=== PATIENT | male | born 1945 | race African-American/Black ===

== ENCOUNTER 2016-11-22 09:41 | Inpatient (IN) | payer OTHER ==
[2016-11-22] VITALS (18 sets, daily range): BP systolic 100–111; BP diastolic 55–79; PULSE 102–116; TEMP 36.2–37.4; O2SAT 90–100; Ht 167.6 cm; Wt 62.4 kg
[~2016-11-22] VITALS: Ht 167.6 cm; Wt 62.4 kg
[~2016-11-22 09:41] MED LIST: ACET-1311 PO; ALUM-30 PO; ARTISOL12 OP; RANI150T3 PO
[2016-11-22] MEDS ORDERED: SODIUM CHLORIDE 0.9% 1000ML 1,000 ML IV STA ×2 (10:03→11:45)
[2016-11-22] MEDS ORDERED: OMEP40CA41 PO (10:05)
[2016-11-22] MEDS ORDERED: [UNRECOGNIZED DRUG - CODE] PO (10:05)
[2016-11-22] MEDS ORDERED: ONDANSETRON INJ 2 MG/ML 2 ML VIAL IV STA ×2 (10:16→17:45)
[2016-11-22] MEDS ORDERED: MoRPHine SULFATE 4 MG/ML 1 ML CARP\\VIAL IV STA (10:16)
[2016-11-22] MEDS ORDERED: OPTIRAY 320 IV PRN (10:30)
--- NOTE | 2016-11-22 10:45 | EMERGENCY ROOM VISIT NOTE ---
History First contact with patient: 09:54 Chief Complaint: TACHYCARDIA Stated Complaint: TACHYCARDIAC Nursing Triage Summary: pt from [facility], on rounds this am he was found lying in urine and feces. was taken to [facility] where he was found to be tachycardic History of Present Illness The patient is a 71 year old male who presents to the Emergency Room with complaints of unresponsive episode. He was found on the floor by staff at [facility] covered in stool and urine. He was taken to the [facility] and was tachycardic, short of breath, c/o right flank pain. He is currently in 10 generalized abdominal pain, without radiation. He feels it started on his left side and is now generalized. He feels his chronic right inguinal hernia is exquisitely tender. He felt well yesterday but does not remember events this morning. He reports having black stool for the last 3 days. Currently feels nauseous but hasn't been vomiting. He is short of breath but denies any chest pain. Review of Systems See HPI for pertinent positives & negatives. A total of 10 systems reviewed and were otherwise negative. Past Medical/Surgical History Medical Problems: (1) Esophageal cancer (2) Helicobacter pylori (H. pylori) (3) Hepatitis C (4) Leukoplakia of vocal cords (5) Right groin hernia Social History Smoking Status: Never Smoker Alcohol Use: none Drug Use: none Marital Status: single Housing Status: other Occupation Status: other Current/Historical Medications Scheduled Nutritional Supplements (Resource Juice Drink), 240 ML PO DAILY Omeprazole (Prilosec), 40 MG PO DAILY Scheduled PRN Acetaminophen (Tylenol), 650 MG PO QID PRN for Pain Alum & Mag Hydrox-Simethicone (Mylanta), 1 DOSE PO UD PRN for STOMACH UPSET Artificial Tear Solution (Artificial Tears), 1 DROPS OP QID PRN for PRN Allergies Coded Allergies: No Known Allergies (Unverified , 11/22/16) Physical Exam Vital Signs Date Time Temp Pulse Resp B/P (MAP) Pulse Ox O2 Delivery O2 Flow Rate FiO2 11/22/16 15:08 109 18 100 11/22/16 15:01 124/69 11/22/16 14:53 110 20 100 11/22/16 14:46 117/70 11/22/16 14:38 111 18 100 11/22/16 14:31 131/73 6/17/17 14:23 110 18 100 17/17 14:16 138/69 11/22/17 14:08 112 20 100 17/17 14:01 128/62 11/22/17 13:53 116 19 100 17/17 13:46 115/66 11/22/17 13:42 Nasal Cannula 3.0 11/22/16 13:39 36.7 118 20 125/72 100 Nasal Cannula 3.0 17 13:38 119 19 100 17 13:37 125/72 17 13:31 139/61 11/22/17 13:23 120 22 100 17 13:08 118 20 100 17 13:01 130/69 17 12:53 125 19 95 11/22/17 12:47 126 28 123/69 95 Nasal Cannula 11/22/16 12:46 123/69 11/22/16 12:38 138 100 17 12:33 120 11/22/16 12:28 118 20 100 17 12:23 119 23 88 17 12:18 117 19 100 17 12:15 119 11/22/16 12:13 119 13 100 17 12:08 111/67 17 11:06 119 23 17 11:01 118 24 127/73 17 10:56 118 23 100 17 10:51 118 36 100 17 10:46 119 34 17 10:41 120 27 17 10:36 114 29 17/17 10:31 115 29 125/78 17 10:26 119 30 11/22/17 10:21 130 34 17 10:16 118 38 17 10:11 116 32 100 17 10:06 119 40 17 10:04 116/74 17 10:03 100 Room Air 11/22/16 10:01 125 40 11/22/16 09:57 100/63 17 09:56 127 43 17 09:55 127 11/22/16 09:54 Room Air 11/22/16 09:54 36.9 121 32 100/63 100 Room Air Physical Exam VITAL SIGNS: were reviewed as above GENERAL: no acute distress, cachetic appearance SKIN: Warm dry and pink, no rashes HEAD: Normocephalic and atraumatic EYES: extraocular muscles intact, pupils equal and reactive to light OROPHARYNX: non erythematous, clear and dry NECK: Supple, no adenopathy or meningismus LUNGS: Increased rate and breathing effort, clear to auscultation, no accessory muscle use HEART: Tachycardia, regular rhythm, heart sounds 1+2, no murmurs ABDOMEN: Generalized abdominal tenderness with guarding but no rebound tenderness, right inguinal mass very tender to touch, no skin changes over hernia, soft, bowel sounds normal RECTAL: done with verbal consent, no skin tags/hemorrhoids, soft stool, brown, fecal occult blood positive BACK: generalized tenderness over abdomen and CVA. EXTREMITIES: Cool peripheries, no calf tenderness/swelling, no pedal edema NEUROLOGICALLY: Awake, alert and oriented. Low volume hoarse voice. No facial droop. Moving all 4 limbs without focal deficit MUSCULOSKELETAL: Good muscle tone. No evidence of trauma Medical Decision & Procedures ER Provider Diagnostic Interpretation: CHEST ONE VIEW PORTABLE CLINICAL HISTORY: SOB dyspnea COMPARISON STUDY: 03/04/2015 FINDINGS: The bones soft tissues and hemidiaphragms are normal. The cardiomediastinal silhouette is normal. The lungs are clear. The pulmonary vasculature is normal. Several old right-sided rib fractures IMPRESSION: Negative chest. Electronically signed by: Lui Duncan M.D. 11/22/2016 10:[address] NON[address]AST CT DOSE: HISTORY: Mental status change AMS, Fall TECHNIQUE: Multiaxial CT images of the head were performed without the use of intravenous contrast. Comparison: None. Findings: The paranasal sinuses and mastoid air cells are clear. Slight increase in density is interim most likely secondary to partial calcification. Density characteristics otherwise are unremarkable. Ventricular system is midline. There is no midline shift. Impression: No acute process. Chronic change. Electronically signed by: Lui Duncan M.D. 11/22/2016 12:20 PM Dictated Date/Time: 11/22/2016 12:[address] angiogram abdomen and pelvis ANGIO ABD/PELVIS WITH CONTRAST CLINICAL HISTORY: Pain TECHNIQUE: Transaxial acquisition with multi axial reformatted images COMPARISON STUDY: None FINDINGS: Mild atherosclerotic change throughout the abdomen and pelvic arterial vasculature. No significant stenotic or aneurysmal process. Bowel pattern is consistent with that of a mild ileus. There is a considerable fecal impaction. IMPRESSION: 1. Negative CT angiogram abdomen and pelvis. 2. Rather marked rectal/sigmoid fecal impaction Electronically signed by: Lui Duncan M.D. 11/22/2016 12:27 PM Dictated Date/Time: 11/22/2016 12:24 PM Laboratory Results 11/22/16 10:55 Red Blood Count 2.13, Mean Corpuscular Volume 106.6, Mean Corpuscular Hemoglobin 34.3, Mean Corpuscular Hemoglobin Concent 32.2, Mean Platelet Volume 12.3, Neutrophils (%) (Auto) 84.1, Lymphocytes (%) (Auto) 5.8, Monocytes (%) ( Auto) 9.7, Eosinophils (%) (Auto) 0.0, Basophils (%) (Auto) 0.1, Neutrophils # ( Auto) 13.32, Lymphocytes # (Auto) 0.92, Monocytes # (Auto) 1.53, Eosinophils # ( Auto) 0.00, Basophils # (Auto) 0.01 Test 11/22/16 10:30 11/22/16 10:31 11/22/16 10:36 11/22/16 10:55 Total Bilirubin 0.4 mg/dl (0.2-1) Aspartate Amino Transf (AST/SGOT) 29 U/L (15-37) Alanine Aminotransferase (ALT/SGPT) 25 U/L (12-78) Alkaline Phosphatase 49 U/L (45-117) Ammonia 25.0 umol/L (11-32) Total Protein 6.3 gm/dl (6.4-8.2) Albumin 3.2 gm/dl (3.4-5.0) Globulin 3.1 gm/dl (2.5-4.0) Albumin/Globulin Ratio 1.0 (0.9-2) Bedside Chloride 100 mEq/L (101-112) Bedside Total CO2 31 mEq/l (24-31) Bedside Blood Urea Nitrogen 59 mg/dl (7-18) Bedside Creatinine 1.1 mg/dl (0.6-1.3) Bedside Glucose (other) 127 mg/dl (70-99) Bedside Ionized Calcium (René) 1.16 mmol/l (1.12-1.32) Bedside Lactic Acid Venous 4.00 mmol/L (0.90-1.70) Bedside Troponin I < 0.030 ng/ml (0-0.045) White Blood Count 15.82 K/uL (4.8-10.8) Red Blood Count 2.13 M/uL (4.7-6.1) Hemoglobin 7.3 g/dL (14.0-18.0) Hematocrit 22.7 % (42-52) Mean Corpuscular Volume 106.6 fL (80-100) Mean Corpuscular Hemoglobin 34.3 pg (25-34) Mean Corpuscular Hemoglobin Concent 32.2 g/dl (32-36) Platelet Count 177 K/uL (130-400) Mean Platelet Volume 12.3 fL (7.4-10.4) Neutrophils (%) (Auto) 84.1 % Lymphocytes (%) (Auto) 5.8 % Monocytes (%) (Auto) 9.7 % Eosinophils (%) (Auto) 0.0 % Basophils (%) (Auto) 0.1 % Neutrophils # (Auto) 13.32 K/uL (1.4-6.5) Lymphocytes # (Auto) 0.92 K/uL (1.2-3.4) Monocytes # (Auto) 1.53 K/uL (0.11-0.59) Eosinophils # (Auto) 0.00 K/uL (0-0.5) Basophils # (Auto) 0.01 K/uL (0-0.2) RDW Standard Deviation 56.9 fL (36.4-46.3) RDW Coefficient of Variation 14.8 % (11.5-14.5) Immature Granulocyte % (Auto) 0.3 % Immature Granulocyte # (Auto) 0.04 K/uL (0.00-0.02) Macrocytosis PRESENT Test 11/22/16 11:00 Arterial Blood pH 7.24 (7.35-7.45) Arterial Blood Partial Pressure CO2 86 mmHg (35-46) Arterial Blood Partial Pressure O2 212 mm/Hg (80-95) Arterial Blood HCO3 36 mmol/L (19-24) Arterial Blood Oxygen Saturation 98.4 % (90-95) Arterial Blood Base Excess 7.6 mEq/L (-9-1.8) Arterial Blood Gas Delivery 3 LITERS O2 Jordi Test POS (POS) Date/Time Source Procedure Growth Status 11/22/16 00:00 Nasal MRSA DNA Surveillance Screen - Final Specimen Negative for MRSA by DNA Probe Complete Medications Administered Medications (Trade) Dose Ordered Sig/Vera Route Start Time Stop Time Status Last Admin Dose Admin Sodium Chloride 1,000 ml @ 999 mls/hr Q1H1M STAT IV 11/22/16 10:03 11/22/16 11:03 DC 11/22/16 10:21 999 MLS/HR Morphine Sulfate (MoRPHine SULFATE INJ) 4 mg NOW STAT IV 11/22/16 10:16 11/22/16 10:18 DC 11/22/16 10:22 4 MG Ondansetron HCl (Zofran Inj) 4 mg NOW STAT IV 11/22/16 10:16 11/22/16 10:18 DC 11/22/16 10:21 4 MG Sodium Chloride 1,000 ml @ 999 mls/hr Q1H1M STAT IV 11/22/16 11:45 11/22/16 12:45 DC 11/22/16 12:15 999 MLS/HR ECG Indication: abdominal pain, SOB/dyspnea Rate (beats per minute): 125 Rhythm: sinus tachycardia Findings: no acute ischemic change, other (Increased R/S ratio, possibly right ventricular hypertrophy) Change: no significant change (Feb 2016) ED Course 9:55am Complete history and physical taken 10:10am Discussed with Dr Lopez 12:35pm Manual disimpaction attempted unsuccessfully given stool is very soft. Discussed with Dr Lopez and soap suds enema ordered. 13:00pm Dr Lopez discussed with Olegario Lang PA-C to assess patient for admission Medical Decision Prior records/ancillary studies reviewed. Triage Nursing notes reviewed. Additional history obtained from patient. The patient's history was concerning for abdominal pain and melena. Differential diagnosis: Etiologies such as appendicitis, diverticulitis, PUD, biliary pathology, UTI, pancreatitis, obstruction, mesenteric ischemia, aortic pathology, infections, inflammatory bowel disease, renal colic, as well as others were entertained. Physical examination findings: As above. Generalized abdominal tenderness ER treatment provided: Morphine 4mg IV, Zofran 4mg IV NSS bolus x2L On reassessment the patient felt better. Diagnostics interpreted by me: ECG: sinus tachycardia The labs revealed WBC 15.82, Hgb 7.3 (high MCV), Plt 177, Cr 1.1, BUN 63, Na 148 , K 3.9. Lactic acid 4.0 ABG - pH 7.24; pCO2 89; pO2 212; HCO3 36 Blood cultures were taken and the patient was type and crossed 2 units (1 unit ordered to transfuse) Imaging studies: CT A/P angiogram showed large amount of fecal impaction with mild ileus, negative for abdominal aortic dissection Consultation: A consultation was placed with the [facility] hospitalist (Olegario Lang PA-C). The case was discussed and diagnostics were reviewed by Dr Lopez. The patient was evaluated in the ER for further treatment. This is consistent with fecal impaction with an upper GI bleed. He was having his first unit transfused in the ER when I reassessed him. The cause of his lactic acidosis is less clear at this time. By the evaluation outlined above emergent etiologies such as appendicitis, biliary pathology, UTI, pancreatitis, aortic pathology, inflammatory bowel disease, renal colic, as well as others were deemed relatively unlikely. The patient was informed about the findings as listed above. All questions were answered. Impression Primary Impression: UGI bleed Additional Impressions: Anemia Fecal impaction Lactic acid acidosis Hypercapnia Leukocytosis Departure Information Dispostion Being Evaluated By Hospitalist Condition POOR Referrals Lupe GARCIA (PCP) Patient Instructions My [facility] Resident Tracking Resident Involvement: Resident Care Provided Care Provided: Adult ED Problem Qualifiers Additional Impressions: Anemia Anemia type: other cause Other causes of anemia: acute posthemorrhagic Qualified Codes: D62 - Acute posthemorrhagic anemia Leukocytosis Leukocytosis type: unspecified Qualified Codes: D72.829 - Elevated white blood cell count, unspecified
[2016-11-22 10:55] LABS: ISTAT CREATININE 1.1 mg/dl (0.6-1.3); ISTAT HEMOGLOBIN 8.5 g/dl (14.0-18.0); ISTAT IONIZED CALCIUM 1.16 mmol/l (1.12-1.32)
--- NOTE | 2016-11-22 10:59 | DIAGNOSTIC IMAGING REPORT ---
CHEST ONE VIEW PORTABLE CLINICAL HISTORY: SOB dyspnea COMPARISON STUDY: 03/04/2015 FINDINGS: The bones soft tissues and hemidiaphragms are normal. The cardiomediastinal silhouette is normal. The lungs are clear. The pulmonary vasculature is normal. Several old right-sided rib fractures IMPRESSION: Negative chest. Electronically signed by: Lui Duncan M.D. 11/22/2016 10:57 AM Dictated Date/Time: 11/22/2016 10:57 AM
[2016-11-22 11:04] LABS: INR 1.2 (0.9-1.1); PARTIAL THROMBOPLASTIN RATIO 0.8; PROTHROMBIN TIME (PATIENT) 12.9 SECONDS (9.0-12.0)
[2016-11-22 11:06] LABS: BASO % 0.1 %; BASO ABS # 0.01 K/uL (0-0.2); HEMATOCRIT 22.7 % (42-52); IG% 0.3 %; LYMPH % 5.8 %; LYMPH ABS # 0.92 K/uL (1.2-3.4); MEAN CELL VOLUME 106.6 fL (80-100); MEAN CORPUSCULAR HEMOGLOBIN 34.3 pg (25-34); MEAN CORPUSCULAR HGB CONC 32.2 g/dl (32-36); MEAN PLATELET VOLUME 12.3 fL (7.4-10.4); MONO % 9.7 %; NEUT % 84.1 %; PLATELET COUNT 177 K/uL (130-400); RED BLOOD COUNT 2.13 M/uL (4.7-6.1); WHITE BLOOD COUNT 15.82 K/uL (4.8-10.8)
[2016-11-22 11:10] LABS: BUN/CREATININE RATIO 57.2 (10-20); CALCIUM 8.3 mg/dl (8.5-10.1); CREATININE 1.1 mg/dl (0.60-1.40); POTASSIUM 3.9 mmol/L (3.5-5.1)
[2016-11-22 11:20] LABS: ARTERIAL BLD GAS O2 SATURATION 98.4 % (90-95); ARTERIAL BLOOD GAS BASE EXCESS 7.6 mEq/L (-9-1.8); ARTERIAL BLOOD GAS HCO3 36 mmol/L (19-24); ARTERIAL BLOOD GAS PO2 212 mm/Hg (80-95); ARTERIAL BLOOD GAS pH 7.24 (7.35-7.45)
[2016-11-22 11:22] LABS: ALLEN TEST POS (POS); O2 ADMINISTRATION 3 LITERS O2
[2016-11-22 11:32] LABS: COMPLETE YES
--- NOTE | 2016-11-22 12:21 | DIAGNOSTIC IMAGING REPORT ---
HEAD CT NONCONTRAST CT DOSE: HISTORY: Mental status change AMS, Fall TECHNIQUE: Multiaxial CT images of the head were performed without the use of intravenous contrast. Comparison: None. Findings: The paranasal sinuses and mastoid air cells are clear. Slight increase in density is interim most likely secondary to partial calcification. Density characteristics otherwise are unremarkable. Ventricular system is midline. There is no midline shift. Impression: No acute process. Chronic change. Electronically signed by: Lui Duncan M.D. 11/22/2016 12:20 PM Dictated Date/Time: 11/22/2016 12:18 PM
--- NOTE | 2016-11-22 12:28 | DIAGNOSTIC IMAGING REPORT ---
CT angiogram abdomen and pelvis ANGIO ABD/PELVIS WITH CONTRAST CLINICAL HISTORY: Pain TECHNIQUE: Transaxial acquisition with multi axial reformatted images COMPARISON STUDY: None FINDINGS: Mild atherosclerotic change throughout the abdomen and pelvic arterial vasculature. No significant stenotic or aneurysmal process. Bowel pattern is consistent with that of a mild ileus. There is a considerable fecal impaction. IMPRESSION: 1. Negative CT angiogram abdomen and pelvis. 2. Rather marked rectal/sigmoid fecal impaction Electronically signed by: Lui Duncan M.D. 11/22/2016 12:27 PM Dictated Date/Time: 11/22/2016 12:24 PM
[2016-11-22] MEDS ORDERED: SOAP SUDS ENEMA PR STA ×2 (12:55→21:01)
--- NOTE | 2016-11-22 13:43 | History and Physical ---
History & Physical Date & Time of Service: Nov 22, 2016 at 13:36 Chief Complaint: Tachycardiac Primary Care Physician: Lupe GARCIA History of Present Illness Source: patient Attending: Dr. Hills Saw patient in B2 in the ED. at 13:30 This is a 71 yo male from [facility] that carries a history of sq cell laryngeal cancer who presents with a probable GI Bleed and rectal impaction of soft stool. His belly is not distended and not painful. CT abd/pelvis shows mild ileus with no evidence of free air or obstruction. There is also no evidence of dissection. SBP is soft and in the low 100s. HGB is 7.3 with a HcT of 22.7. WBC is 15.82. He is afebrile. Patient presented with a chief complaint of abdominal pain. He is able to give me his name and states that he feels better but still has some belly pain. He denies fever pr chills. No nausea or vomiting. No diarrhea. He is unable to tell me when his last bowel movement was. Further history is not available from the [facility]. Patient is unable to provide further history. The guards are able to tell me that the patient was in solitary confinement so he was not in general population. It is unclear what his ambulatory status was prior to admission. Per past [facility] from the [facility], he has a history of constipation, old right sided rib fractures, chronic pain, anxiety, dysphagia, glaucoma, inquinal hernia, HCV, GERD, and cataracts, chronic hoarseness Medications at the [facility] include Tylenol PRN, Artificial tears, Mylanta/Maalox , Omeprazole, Resource supplement Past Medical/Surgical History Medical Problems: Helicobacter pylori (H. pylori) Hepatitis C Hx Sq Cell CA of vocal cords Right groin hernia Glaucoma GERD Anxiety Surgical History: Laryngeal biopsy 07/[address] Garcia 03/22 Family History Not available per patient Social History Smoking Status: Never Smoker Smokeless Tobacco Use: Unknown Drug Use: none Marital Status: single Housing status: other (Incarcerated at [facility]) Occupational Status: other Immunizations History of Influenza Vaccine: Yes Influenza Vaccine Date: Apr 16, 2016 History of Tetanus Vaccine?: Yes Tetanus Immunization Date: Aug 16, 2012 History of Pneumococcal: Yes Pneumococcal Date: October 26, 2014 History of Hepatitis B Vaccine: Yes Hepatitis Immunization Date: Nov 24, 2013 Multi-Drug Resistant Organisms History of MDRO: No Allergies Coded Allergies: No Known Allergies (Unverified , 11/22/16) Home Medications Scheduled Nutritional Supplements (Resource Juice Drink), 240 ML PO DAILY Omeprazole (Prilosec), 40 MG PO DAILY Scheduled PRN Acetaminophen (Tylenol), 650 MG PO QID PRN for Pain Alum & Mag Hydrox-Simethicone (Mylanta), 1 DOSE PO UD PRN for STOMACH UPSET Artificial Tear Solution (Artificial Tears), 1 DROPS OP QID PRN for PRN Review of Systems A total of 12 systems was reviewed and is negative other than as listed above in the HPI Physical Exam Vital Signs Date Time Temp Pulse Resp B/P (MAP) Pulse Ox O2 Delivery O2 Flow Rate FiO2 11/22/16 12:47 126 28 123/69 95 Nasal Cannula 11/22/16 12:33 120 11/22/16 12:28 118 20 100 11/22/16 12:23 119 23 88 11/22/16 12:18 117 19 100 11/22/16 12:15 119 11/22/16 12:13 119 13 100 11/22/16 12:08 111/67 11/22/16 11:06 119 23 11/22/16 11:01 118 24 127/73 11/22/16 10:56 118 23 100 11/22/16 10:51 118 36 100 11/22/16 10:46 119 34 11/22/16 10:41 120 27 11/22/16 10:36 114 29 11/22/16 10:31 115 29 125/78 11/22/16 10:26 119 30 11/22/16 10:21 130 34 11/22/16 10:16 118 38 11/22/16 10:11 116 32 100 11/22/16 10:06 119 40 11/22/16 10:04 116/74 11/22/16 10:03 100 Room Air 11/22/16 10:01 125 40 11/22/16 09:57 100/63 11/22/16 09:56 127 43 11/22/16 09:55 127 11/22/16 09:54 Room Air 11/22/16 09:54 36.9 121 32 100/63 100 Room Air General - NAD but disoriented Eyes - No icterus, gaze conjugate. PERRLA ENT - Mucosa moist, no lesions or candidiasis. Tongue midline Neck - Supple, No JVD. No bruits or stridor Lungs - No bronchospasm, rales, or rhonchi. Diminished at the bases Heart - Regular, tachycardic in the 1-teens Abdomen - Soft, NT, ND, BS present. No tenderness to palpation. No rebound tenderness. No high pitched bowel sounds Extremities - No edema, pedal pulses intact. No calf tenderness Neuro - A&OX2. Able to confirm history. No pronator drift. Toes downgoing bilaterally. DTR 2/4 B/L brachioradialis, bicep, and patellar tendons. Stated that he has been at [facility] for 2 years Diagnostics Laboratory Results Results Past 24 Hours Test 11/22/16 10:30 11/22/16 10:31 11/22/16 10:36 11/22/16 10:55 Range/Units Prothrombin Time 12.9 9.0-12.0 SECONDS Prothromb Time International Ratio 1.2 0.9-1.1 Activated Partial Thromboplast Time 21.5 21.0-31.0 SECONDS Partial Thromboplastin Ratio 0.8 Sodium Level 148 136-145 mmol/L Potassium Level 3.9 3.5-5.1 mmol/L Chloride Level 107 98-107 mmol/L Carbon Dioxide Level 33 21-32 mmol/L Anion Gap 8.0 19.0 16-25 mmol/L Blood Urea Nitrogen 63 7-18 mg/dl Creatinine 1.10 0.60-1.40 mg/dl Est Creatinine Clear Calc Drug Dose 47.2 ml/min Estimated GFR () 77.3 Estimated GFR (Non- 66.7 BUN/Creatinine Ratio 57.2 10-20 Random Glucose 125 70-99 mg/dl Calcium Level 8.3 8.5-10.1 mg/dl Total Bilirubin 0.4 0.2-1 mg/dl Aspartate Amino Transf (AST/SGOT) 29 15-37 U/L Alanine Aminotransferase (ALT/SGPT) 25 12-78 U/L Alkaline Phosphatase 49 45-117 U/L Ammonia 25.0 11-32 umol/L Troponin I 0.022 0-0.045 ng/ml Total Protein 6.3 6.4-8.2 gm/dl Albumin 3.2 3.4-5.0 gm/dl Globulin 3.1 2.5-4.0 gm/dl Albumin/Globulin Ratio 1.0 0.9-2 Lipase 185 73-393 U/L Bedside Hemoglobin 8.5 14.0-18.0 g/dl Bedside Hematocrit 25 42-52 % Bedside Sodium 146 135-144 mEq/L Bedside Potassium 3.9 3.3-5.0 mEq/L Bedside Chloride 100 101-112 mEq/L Bedside Total CO2 31 24-31 mEq/l Bedside Blood Urea Nitrogen 59 7-18 mg/dl Bedside Creatinine 1.1 0.6-1.3 mg/dl Bedside Glucose (other) 127 70-99 mg/dl Bedside Ionized Calcium (René) 1.16 1.12-1.32 mmol/l Bedside Lactic Acid Venous 4.00 0.90-1.70 mmol/L Bedside Troponin I < 0.030 0-0.045 ng/ml White Blood Count 15.82 4.8-10.8 K/uL Red Blood Count 2.13 4.7-6.1 M/uL Hemoglobin 7.3 14.0-18.0 g/dL Hematocrit 22.7 42-52 % Mean Corpuscular Volume 106.6 80-100 fL Mean Corpuscular Hemoglobin 34.3 25-34 pg Mean Corpuscular Hemoglobin Concent 32.2 32-36 g/dl Platelet Count 177 130-400 K/uL Mean Platelet Volume 12.3 7.4-10.4 fL Neutrophils (%) (Auto) 84.1 % Lymphocytes (%) (Auto) 5.8 % Monocytes (%) (Auto) 9.7 % Eosinophils (%) (Auto) 0.0 % Basophils (%) (Auto) 0.1 % Neutrophils # (Auto) 13.32 1.4-6.5 K/uL Lymphocytes # (Auto) 0.92 1.2-3.4 K/uL Monocytes # (Auto) 1.53 0.11-0.59 K/uL Eosinophils # (Auto) 0.00 0-0.5 K/uL Basophils # (Auto) 0.01 0-0.2 K/uL RDW Standard Deviation 56.9 36.4-46.3 fL RDW Coefficient of Variation 14.8 11.5-14.5 % Immature Granulocyte % (Auto) 0.3 % Immature Granulocyte # (Auto) 0.04 0.00-0.02 K/uL Macrocytosis PRESENT Test 11/22/16 11:00 Range/Units Arterial Blood pH 7.24 7.35-7.45 Arterial Blood Partial Pressure CO2 86 35-46 mmHg Arterial Blood Partial Pressure O2 212 80-95 mm/Hg Arterial Blood HCO3 36 19-24 mmol/L Arterial Blood Oxygen Saturation 98.4 90-95 % Arterial Blood Base Excess 7.6 -9-1.8 mEq/L Arterial Blood Gas Delivery 3 LITERS O2 Jordi Test POS POS Microbiology Results 11/22/16 Blood Culture, Received Pending 11/22/16 Blood Culture, Received Pending Diagnostic Radiology HEAD CT NONCONTRAST CT DOSE: HISTORY: Mental status change AMS, Fall TECHNIQUE: Multiaxial CT images of the head were performed without the use of intravenous contrast. Comparison: None. Findings: The paranasal sinuses and mastoid air cells are clear. Slight increase in density is interim most likely secondary to partial calcification. Density characteristics otherwise are unremarkable. Ventricular system is midline. There is no midline shift. Impression: No acute process. Chronic change. Electronically signed by: Lui Duncan M.D. 11/22/2016 12:[address] DOSE: HISTORY: Mental status change AMS, Fall TECHNIQUE: Multiaxial CT images of the head were performed without the use of intravenous contrast. Comparison: None. Findings: The paranasal sinuses and mastoid air cells are clear. Slight increase in density is interim most likely secondary to partial calcification. Density characteristics otherwise are unremarkable. Ventricular system is midline. There is no midline shift. Impression: No acute process. Chronic change. Electronically signed by: Lui Duncan M.D. 11/22/2016 12:20 PM CHEST ONE VIEW PORTABLE CLINICAL HISTORY: SOB dyspnea COMPARISON STUDY: 03/04/2015 FINDINGS: The bones soft tissues and hemidiaphragms are normal. The cardiomediastinal silhouette is normal. The lungs are clear. The pulmonary vasculature is normal. Several old right-sided rib fractures IMPRESSION: Negative chest. Electronically signed by: Lui Duncan M.D. 11/22/2016 10:57 AM Impression Assessment and Plan ACUTE RESPIRATORY FAILURE Acidosis Hypercapnia CXR negative Lactic acid 4 Blood, urine, MRSA cultures pending Repeat ABG and start BiPAP 05/13 (Repeat ABG 7.052/>130/398/No HC03) Oxygenation adequate on 3L/min via nasal cannula Admit to ICU as patient is minimally responsive ANEMIA Question of GI Bleed but no melana hematochezia or BRBPR CT Abd/pelvis negative Transfusing 1 unit of PRBC Additional unit on hold Serial H&H Check stool for guaiac SEPSIS Unknown source CXR clear Lactate 4 Anemic Developed acute respiratopry failure 2 l NSS in ED then IVF held for transfusion of PRBC Transfer to ICU Repeat CXR Start Daptomycin and Vancomycin Panculture Continue fluid support Hemodynamically stable CARDIAC No cardiac history Check echocardiogram No chest pain or tightness NEURO Alert and oriented X 2 on initial visit Deteriorated with climbing pCO2 now > 130 Started on BiPAP Transfer to ICU for consideration of endotracheal intubation CT Head negative GI BLEED Place NGT to LIWS Follow serial H&H Pantoprazole IV now that patient is unresponsive Hold on GI consult for now pending repeat labs ILEUS CT abd/pelvis with bowel filled colon and rectum Disimpaction with soft stool Place NGT to LIWS Monitor No pain on palpation Electrolytes K+ 3.9 Na+ 146 Ca+ 8.3 Ioinized Ca+ 1.16 Mag pending Follow serial labs CARDIAC Hemodynamically stable Negative enzymes Check EKG No chest pain NSR on telemetry NUTRITION Albumin 3.2 NPO Reassess tomorrow am IV ACCESS 2 PIV in hands 1 Left EJ PICC eval DVT PROPHYLAXIS No chemical prophylaxis SCDs ADDENDUM: I have seen and examined the patient and have discussed the case with the provider above. I agree wtih the assessment and plan. The patient became acutely worse when I saw him and repeat ABG went to CO2 130. He was exhibiting Aditya-Busch breathing and was placed on BIPAP in the ER wtih some improvement. Oxygenation status was good. Initial complaint was abdominal pain. Plan for NGT in light of ileus on CT scan. He also has sepsis of unknown source and anemia which is being corrected with blood transfusion. He has recently spent months in solitary confinement. Agree with ICU disposition. Do ISABELLE Level of Care Critical Care Advanced Directives Existing Advance Directive: No Existing Living Will: No Existing Power of Garment Sewer Hand: No Existing Health Care Proxy: No Resuscitation Status FULL RESUSCITATION (per patient discussion) VTE Prophylaxis VTE Risk Assessment Done? Y/N: Yes Risk Level: Moderate Given or contraindicated: SCD's Social Service Consult None Apply Note Total Time: Critical Care > 74 minutes
--- NOTE | 2016-11-22 14:53 | EMERGENCY ROOM VISIT NOTE ---
ED Visit Note First contact with patient: 09:54 Resident Physician Supervision Note: I interviewed and examined the patient. Discussed with Dr. Mtz and agree with findings and plan as documented in the note. Any exceptions or clarifications are listed here: [None] Laboratory work reveals an anemia, likely attributable to a GI bleed. Due to the patient's abdominal tenderness, CT scan abdomen and pelvis was ordered. Patient is found to have a large fecal impaction. Attempts were made to disimpact the stool however it is too soft. Laboratory work is also concerning for a lactate of 4. Patient's blood pressure has remained stable. He is tachycardic. One unit of PRBCs have been ordered to transfuse, second is pending. The hospitalist service has been consulted for further management. Please refer to Dr. Mtz's notes for further details of the history, physical and visit. Documented By: Estrella Lopez
[2016-11-22] MEDS ORDERED: ACETAMINOPHEN 325 MG TAB PO PRN (15:00)
[2016-11-22] MEDS ORDERED: VANCOMYCIN CONSULT ACTIVE PRN (16:45)
[2016-11-22] MEDS ORDERED: PIPERACILL/TAZOBAC CONSULT ACTIVE PRN (16:45)
[2016-11-22] MEDS: SODIUM CHLORIDE 0.9% 1000ML 1,000 ML IV SCH (16:59)
[2016-11-22] MEDS ORDERED: PIPERACILL/TAZOBAC IV 4.5 GM in DEXTROSE 5% 100ML IV ONE (17:00)
[2016-11-22] MEDS ORDERED: VANCOMYCIN INJ 1,350 MG in SODIUM CHLORIDE 0.9% 250ML 250 ML IV ONE (17:00)
[2016-11-22] MEDS ORDERED: ONDANSETRON INJ 2 MG/ML 2 ML VIAL ONE (17:38)
[2016-11-22 17:40] LABS: URINE APPEARANCE CLEAR (CLEAR); URINE BILIRUBIN NEG (NEG); URINE COLOR YELLOW; URINE NITRITE NEG (NEG); URINE SPECIFIC GRAVITY > 1.045 (1.000-1.030); UROBILINOGEN NEG (NEG)
[2016-11-22] MEDS ORDERED: ALBUT/IPRATROP 3MG/0.5MG NEB 3 ML VIAL INH STA (17:42)
[2016-11-22 17:43] LABS: MANUAL MICROSCOPIC REQUIRED? NO; REVIEW REQ? NO
[2016-11-22 17:49] LABS: PARTIAL THROMBOPLASTIN RATIO 1.1; PROTHROMBIN TIME (PATIENT) 11.1 SECONDS (9.0-12.0)
--- NOTE | 2016-11-22 17:53 | DIAGNOSTIC IMAGING REPORT ---
CHEST ONE VIEW PORTABLE CLINICAL HISTORY: Acute Respiratory Failure dyspnea COMPARISON STUDY: 11/22/2016 FINDINGS: Lungs remain clear. Diaphragms smooth. There is a component of emphysematous change. IMPRESSION: Lungs remain clear. Baseline emphysematous change. Several old right rib fractures are again noted. Electronically signed by: Lui Duncan M.D. 11/22/2016 5:52 PM Dictated Date/Time: 11/22/2016 5:51 PM
[2016-11-22 17:58] LABS: BENZODIAZEPINE, URINE NEG (NEG); COCAINE,URINE NEG (NEG); PHENCYCLIDINE, URINE NEG (NEG)
[2016-11-22] MEDS ORDERED: ENOXAPARIN 40 MG/0.4 ML SYR SQ SCH (18:00)
[2016-11-22] MEDS ORDERED: PIPERACILL/TAZOBAC IV 4.5 GM in DEXTROSE 5% 100ML 100 ML IV SCH (18:00)
[2016-11-22 18:03] LABS: AMYLASE 62 U/L (25-115); C-REACTIVE PROTEIN 1.06 mg/dl (0-0.29); PHOSPHORUS 5.3 mg/dl (2.5-4.9)
[2016-11-22 18:34] LABS: ISTAT ARTERIAL BLOOD GAS HCO3 31 meq/L (19-24); ISTAT ARTERIAL BLOOD GAS PCO2 67 mmHg (35-46); ISTAT ARTERIAL BLOOD GAS PO2 126 mmHg (80-95); ISTAT ARTERIAL BLOOD GAS pH 7.27 (7.35-7.45); ISTAT CARBON DIOXIDE 33 mEq/l (24-31); ISTAT HEMATOCRIT 26 % (42-52); ISTAT HEMOGLOBIN 8.8 g/dl (14.0-18.0); ISTAT SODIUM 147 mEq/L (135-144)
[2016-11-22] MEDS: ALBUT/IPRATROP 3MG/0.5MG NEB 3 ML VIAL INH SCH ×2 (19:13→23:04)
[2016-11-22 20:23] LABS: BUN/CREATININE RATIO 59.8 (10-20); CALCIUM 7.8 mg/dl (8.5-10.1); CREATININE 0.95 mg/dl (0.60-1.40)
--- NOTE | 2016-11-22 20:44 | CRITICAL CARE CONSULTATION ---
DATE OF CONSULTATION: 11/22/2016 CHIEF COMPLAINT: Abdominal pain. HISTORY OF PRESENT ILLNESS: The patient is a 71-year-old prisoner at [facility], who presented to the Emergency Department with a complaint of abdominal pain. According to the documentation from the correction, which occurred at 08:45 the patient was hypotensive and tachycardic with a heart rate of 124 and a respiratory rate of 30. He was complaining of right flank pain and was unable to speak. By report, he was also in solitary confinement and he was incontinent of stool and urine. He was evaluated in the Emergency Department and by report had 10/10 abdominal pain which started on the right side and then became generalized. He had no memory of events of the morning. He also reported black stool for 3 days and was nauseated. He had a chest x-ray which showed no acute disease, a head CT showing no acute process and a CT angiogram showing marked rectal/sigmoid fecal impaction. Dr. Mtz attempted to manually disimpact him and found some soft stool. I do not see that it was sent for evaluation of guaiac. A soapsuds enema was ordered, but I do not know if he received it. In the Emergency Department, he had an arterial blood gas drawn which showed a pH of 7.24, pCO2 86, pO2 212 and bicarbonate of 36. Later in the Emergency Department, he became less responsive and another blood gas was drawn. Unfortunately, it is not in the computer, but it had a pH of 7.052 and a pCO2 of greater than 130. He had received 4 mg of morphine as well as 2 liters of normal saline in the Emergency Department. He was placed on BiPAP 15/5 24% and brought to the intensive care unit. When he arrived in the intensive care unit, he was lethargic. He would withdraw to pain, but I could not get any history whatsoever from him. He would reach for the bipap mask and occasionally nod his head. He would move spontaneously some. An NG tube placement was ordered and with that stimulation he was very awake, following commands and refusing the NG tube adamantly. When I asked him if he has a history of tobacco use, he says yes. When I ask him about COPD he says yes; mostly he does not speak though. His mental status continued to improve and follow up also showed improvement. 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 Right inguinal hernia, dysphonia, dysphagia, H. pylori, hepatitis C, rib fractures, glaucoma, cataracts, anxiety, esophageal stricture, dilated by Dr. Garcia in April 2016, leukoplakia of the vocal cords and constipation. PAST SURGICAL HISTORY: Status post uvuloplasty and esophageal dilatation, laryngeal biopsies x2 and cataract extractions. ALLERGIES: No known drug allergies. OUTPATIENT MEDICATIONS: Nutritional supplements and Prilosec. SOCIAL HISTORY: Unclear whether or not he has smoked. He should not be drinking any alcohol. He is incarcerated and has been in solitary confinement FAMILY HISTORY: Noncontributory. REVIEW OF SYSTEMS: Not obtainable. PHYSICAL EXAMINATION: GENERAL: This is an extremely cachectic gentleman, lying in bed with his eyes open, in the position, on BiPAP. VITAL SIGNS: Temperature is 36.2, heart rate 104, respiratory rate 16, blood pressure 111/79 and oxygen saturation 94% on BiPAP 15/5 24%. HEENT: Pupils are equally round and reactive to light. Sclerae is slightly muddy. Oral mucosa was not examined due to the BiPAP. NECK: Thin and I think neck veins are flat. LUNGS: Have very decreased breath sounds throughout. No rales, rhonchi or wheezes. HEART: Tachycardic and regular. CHEST: Symmetric expansion. ABDOMEN: Flat, firm and mildly tender. No rebound, no guarding. Hypoactive bowel sounds. EXTREMITIES: Thin, cool. Radial and dorsalis pedis pulses 1+. No edema. NEUROLOGIC: He will withdraw to pain the bilateral lower extremities. He will reach for the BiPAP mask with both upper extremities. He does not follow commands consistently. He will occasionally nod his head to questions. LABORATORY DATA: Followup blood gas at 18:16; pH 7.27, pCO2 of 67, pO2 126, HCO3 31, white blood cell count 15.82, hemoglobin 7.3, hematocrit 22.7 and platelets 177. He has a left shift. Followup hemoglobin 8.8. PT, PTT and INR within normal limits. Sodium 148, potassium 3.9, chloride 107, CO2 33, BUN 63 and creatinine 1.1. Blood sugar 125, calcium 8.3. Liver function tests within normal limits. Troponin 0.022. Total protein 6.3, albumin 3.2, lipase 185. Procalcitonin 0.23. Amylase 62. C-reactive protein 1.06. ProBNP 820. Lactic acid 4, followup lactic acid by [id number] is not in the computer and was less than 1. Followup chest x-ray this afternoon shows no acute infiltrates. I do think he is somewhat hyperinflated and his diaphragms are smooth. He may have emphysematous changes. PRESENT MEDICATIONS ORDERED: Acetaminophen, DuoNeb, Solu-Medrol, Zofran, Protonix, Zosyn, normal saline and vancomycin. EKG; sinus tachycardia with nonspecific ST-T wave changes. IMPRESSION: 1. Abdominal pain with distended colon and fecal impaction. He may have the pain from an ileus as well. 2. Acute hypercapnic respiratory failure. There may be an element of chronic respiratory failure as well based on his serum CO2. This may be related to the Morphine 4mg he received or he may have COPD. 3. Anemia, possible gastrointestinal bleed. Brown stool per staff. Elevated MCV. 4. Metabolic encephalopath - improving. 5. Leukocytosis with left shift, rule out sepsis. 6. History of esophageal stricture, dysphagia and dysphonia. 7. History of hepatitis C. 8. 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 9. Possible history of chronic obstructive pulmonary disease. 10. Acute kidney injury - likely dehydrated. PLAN: NEUROLOGIC: Avoid sedative medications. Frequent neuro checks. Presently, he has a nonfocal exam and seems to be improving. PULMONARY: Support on BiPAP. I have started bronchodilators and Solu-Medrol 40 mg IV q. 8 hours with the suspicion that he may have chronic obstructive pulmonary disease. It is difficult to know whether or not his respiratory failure was secondary to possible sepsis or some other etiology. CARDIOVASCULAR: Rule out myocardial infarction with serial cardiac enzymes. Hydrate. Consider echocardiogram if he becomes hypotensive. GASTROINTESTINAL: Maintain n.p.o. with the exception of medications if he is awake enough. As noted before, an NG tube unable to be placed. I will order a suppository and/or enema as well as stool for guaiac. Protonix IV BID for GI prophylaxis and for possible GI bleed. HEMATOLOGIC: Check blood counts q. 6 hours and transfuse as needed. SCDs for DVT prophylaxis. B12 and folate levels. SCD's for DVT prophylaxis. RENAL: Continue to hydrate. Follow electrolytes. Consider changing his normal saline to half normal saline based on his elevated sodium. INFECTIOUS DISEASE: Broad spectrum antibiotics for now. Follow procalcitonin, cultures and white blood cell count. Hopefully, we can get some more information over the course of the evening. I have ordered a random cortisol. His IV access is 3 peripheral IVs; I may need to place a central line in him for blood draws. He may be easier to stick once he is hydrated. Critical care time; 1 hour. LEVI
--- NOTE | 2016-11-22 21:18 | Pharmacy Progress Note ---
Pharmacy Antibiotic Consult Date of Service: Nov 22, 2016. Pharmacy Dosing Scope Pharmacy is consulted to initiate vancomycin and zosyn IV dosing therapy, order appropriate labs and adjust drug dose/frequency. Subjective The patient is a 71 year old male admitted on Nov 22, 2016 at 15:11. Objective Height (Feet): 5 Height (Inches): 6.00 Weight (Kilograms): 51.700 Lab Results (24hrs): Test 11/22/16 10:30 11/22/16 10:31 11/22/16 10:36 11/22/16 10:55 Prothrombin Time 12.9 SECONDS (9.0-12.0) Prothromb Time International Ratio 1.2 (0.9-1.1) Activated Partial Thromboplast Time 21.5 SECONDS (21.0-31.0) Partial Thromboplastin Ratio 0.8 Sodium Level 148 mmol/L (136-145) Potassium Level 3.9 mmol/L (3.5-5.1) Chloride Level 107 mmol/L (98-107) Carbon Dioxide Level 33 mmol/L (21-32) Blood Urea Nitrogen 63 mg/dl (7-18) Creatinine 1.10 mg/dl (0.60-1.40) Est Creatinine Clear Calc Drug Dose 47.2 ml/min Estimated GFR () 77.3 Estimated GFR (Non- 66.7 BUN/Creatinine Ratio 57.2 (10-20) Random Glucose 125 mg/dl (70-99) Calcium Level 8.3 mg/dl (8.5-10.1) Total Bilirubin 0.4 mg/dl (0.2-1) Aspartate Amino Transf (AST/SGOT) 29 U/L (15-37) Alanine Aminotransferase (ALT/SGPT) 25 U/L (12-78) Alkaline Phosphatase 49 U/L (45-117) Ammonia 25.0 umol/L (11-32) Troponin I 0.022 ng/ml (0-0.045) Total Protein 6.3 gm/dl (6.4-8.2) Albumin 3.2 gm/dl (3.4-5.0) Globulin 3.1 gm/dl (2.5-4.0) Albumin/Globulin Ratio 1.0 (0.9-2) Lipase 185 U/L (73-393) Bedside Hemoglobin 8.5 g/dl (14.0-18.0) Bedside Hematocrit 25 % (42-52) Bedside Sodium 146 mEq/L (135-144) Bedside Potassium 3.9 mEq/L (3.3-5.0) Bedside Chloride 100 mEq/L (101-112) Bedside Total CO2 31 mEq/l (24-31) Anion Gap 19.0 mmol/L (16-25) Bedside Blood Urea Nitrogen 59 mg/dl (7-18) Bedside Creatinine 1.1 mg/dl (0.6-1.3) Bedside Glucose (other) 127 mg/dl (70-99) Bedside Ionized Calcium (René) 1.16 mmol/l (1.12-1.32) Bedside Lactic Acid Venous 4.00 mmol/L (0.90-1.70) Bedside Troponin I < 0.030 ng/ml (0-0.045) White Blood Count 15.82 K/uL (4.8-10.8) Red Blood Count 2.13 M/uL (4.7-6.1) Hemoglobin 7.3 g/dL (14.0-18.0) Hematocrit 22.7 % (42-52) Mean Corpuscular Volume 106.6 fL (80-100) Mean Corpuscular Hemoglobin 34.3 pg (25-34) Mean Corpuscular Hemoglobin Concent 32.2 g/dl (32-36) Platelet Count 177 K/uL (130-400) Mean Platelet Volume 12.3 fL (7.4-10.4) Neutrophils (%) (Auto) 84.1 % Lymphocytes (%) (Auto) 5.8 % Monocytes (%) (Auto) 9.7 % Eosinophils (%) (Auto) 0.0 % Basophils (%) (Auto) 0.1 % Neutrophils # (Auto) 13.32 K/uL (1.4-6.5) Lymphocytes # (Auto) 0.92 K/uL (1.2-3.4) Monocytes # (Auto) 1.53 K/uL (0.11-0.59) Eosinophils # (Auto) 0.00 K/uL (0-0.5) Basophils # (Auto) 0.01 K/uL (0-0.2) RDW Standard Deviation 56.9 fL (36.4-46.3) RDW Coefficient of Variation 14.8 % (11.5-14.5) Immature Granulocyte % (Auto) 0.3 % Immature Granulocyte # (Auto) 0.04 K/uL (0.00-0.02) Macrocytosis PRESENT Test 11/22/16 11:00 11/22/16 16:24 11/22/16 16:55 11/22/16 17:24 Arterial Blood pH 7.24 (7.35-7.45) Arterial Blood Partial Pressure CO2 86 mmHg (35-46) Arterial Blood Partial Pressure O2 212 mm/Hg (80-95) Arterial Blood HCO3 36 mmol/L (19-24) Arterial Blood Oxygen Saturation 98.4 % (90-95) Arterial Blood Base Excess 7.6 mEq/L (-9-1.8) Arterial Blood Gas Delivery 3 LITERS O2 Jordi Test POS (POS) Creatine Kinase MB Ratio (0-3.0) Urine Color YELLOW Urine Appearance CLEAR (CLEAR) Urine pH 5.0 (4.5-7.5) Urine Specific [place] > 1.045 (1.000-1.030) Urine Protein NEG (NEG) Urine Glucose (UA) NEG (NEG) Urine Ketones NEG (NEG) Urine Occult Blood TRACE (NEG) Urine Nitrite NEG (NEG) Urine Bilirubin NEG (NEG) Urine Urobilinogen NEG (NEG) Urine Leukocyte Esterase NEG (NEG) Urine WBC (Auto) 1-5 /hpf (0-5) Urine RBC (Auto) 0-4 /hpf (0-4) Urine Hyaline Casts (Auto) 1-5 /lpf (0-5) Urine Epithelial Cells (Auto) 10-20 /lpf (0-5) Urine Bacteria (Auto) NEG (NEG) Urine Opiates Screen POS (NEG) Urine Methadone, Qualitative NEG (NEG) Urine Barbiturates NEG (NEG) Urine Phencyclidine (PCP) Level NEG (NEG) Ur Amphetamine/Methamphetamine NEG (NEG) MDMA (Ecstasy) Screen NEG (NEG) Urine Benzodiazepines Screen NEG (NEG) Urine Cocaine Metabolite NEG (NEG) Urine Marijuana (THC) NEG (NEG) Hemoglobin 8.6 g/dL (14.0-18.0) Hematocrit 27.0 % (42-52) Erythrocyte Sedimentation Rate 2 mm/hr (0-14) Prothrombin Time 11.1 SECONDS (9.0-12.0) Prothromb Time International Ratio 1.0 (0.9-1.1) Activated Partial Thromboplast Time 27.3 SECONDS (21.0-31.0) Partial Thromboplastin Ratio 1.1 Sodium Level 149 mmol/L (136-145) Potassium Level 5.0 mmol/L (3.5-5.1) Chloride Level 112 mmol/L (98-107) Carbon Dioxide Level 32 mmol/L (21-32) Anion Gap 5.0 mmol/L (3-11) Blood Urea Nitrogen 57 mg/dl (7-18) Creatinine 0.95 mg/dl (0.60-1.40) Est Creatinine Clear Calc Drug Dose 51.4 ml/min Estimated GFR () 92.3 Estimated GFR (Non- 79.7 BUN/Creatinine Ratio 59.8 (10-20) Random Glucose 104 mg/dl (70-99) Calcium Level 7.8 mg/dl (8.5-10.1) Phosphorus Level 5.3 mg/dl (2.5-4.9) Total Creatine Kinase 432 U/L (39-308) Creatine Kinase MB 6.8 ng/ml (0.5-3.6) Troponin I 0.033 ng/ml (0-0.045) C-Reactive Protein 1.06 mg/dl (0-0.29) Pro-B-Type Natriuretic Peptide 820 pg/ml (0-900) Amylase Level 62 U/L (25-115) Lipase 147 U/L (73-393) Procalcitonin 0.23 ng/ml (0-0.5) Random Cortisol 58.01 mcg/dl Test 11/22/16 18:16 Bedside Hemoglobin 8.8 g/dl (14.0-18.0) Bedside Hematocrit 26 % (42-52) Bedside Blood Gas pH (LAB) 7.27 (7.35-7.45) Bedside Blood Gas pCO2 (LAB) 67 mmHg (35-46) Bedside Blood Gas pO2 (LAB) 126 mmHg (80-95) Bedside Blood Gas HCO3 (LAB) 31 meq/L (19-24) Bedside Blood Gas Total CO2 33 mEq/l (24-31) Bedside Blood Gas Base Excess (LAB) 4.0 meq/L (-9-1.8) Bedside Blood Gas O2 Saturation 98.0 % (90-95) Bedside Sodium 147 mEq/L (135-144) Bedside Potassium 4.3 mEq/L (3.3-5.0) Assessment & Plan Patient started on vancomycin and zosyn for possible sepsis. BC x 2 are pending. Vancomycin: * Received LD of vancomycin 1350 mg (~25 mg/kg) x 1 * Will order MD of vancomycin 750 mg (~15 m/kg) iv q 18 hr to achieve an estimated trough ~15-20 mcg/ml (goal for sepsis/bacteremia) * Estimated kinetics: t1/2~16 hrs, ke~0.04 hr-1 * Unsure of baseline renal function at this time, will order a trough as necessary/adjust dose as necessary Zosyn: * Dosed 4.5 gm iv q 8 hrs (appropriate for CrCl >20 ml/min; actual CrCl ~47 ml/ min) Pharmacy will continue to follow and will adjust dose/frequency as necessary. Thank you
[2016-11-22] MEDS: METHYLPREDNISOLONE IV 40 MG in SYRINGE 0 ML IV SCH (21:36)
[2016-11-22 22:12] LABS: HEMATOCRIT 25.3 % (42-52)
--- NOTE | 2016-11-22 23:52 | Progress Note ---
Progress Note Post Crystalloid Evaluation Date: Nov 22, 2016 Time: 16:30 Subjective 71 yo M inmate who was in solitary confinement for months who presents with sepsis of unknown source. He is unresponsive with tachypnea and a leukocytosis. Physical Exam Vital Signs: Vital Signs Date Time Temp Pulse Resp B/P (MAP) Pulse Ox O2 Delivery O2 Flow Rate FiO2 11/22/16 16:26 115 18 111/62 95 BiPAP 24 11/22/16 13:42 3.0 11/22/16 13:39 36.7 Lungs: lungs clear, + accessory muscle use, + pertinent finding (Aditya Busch breathing) Heart: regular rate, rhythm Peripheral Pulse: Normal Assessment & Plan Presence of: Severe Sepsis SEPSIS Unknown source CXR clear Lactate 4 Anemic Developed acute respiratopry failure 2 l NSS in ED then IVF held for transfusion of PRBC Transfer to ICU Repeat CXR Start Daptomycin and Vancomycin Panculture Continue fluid support Hemodynamically stable Trend labs including lactate
[2016-11-23] VITALS (65 sets, daily range): BP systolic 71–135; BP diastolic 42–71; PULSE 96–183; TEMP 36.4–37.6; O2SAT 85–100
[2016-11-23] MEDS: PIPERACILL/TAZOBAC IV 4.5 GM in DEXTROSE 5% 100ML IV SCH ×4 (00:07→23:23)
[2016-11-23] MEDS: ONDANSETRON INJ 2 MG/ML 2 ML VIAL IV PRN ×2 (00:39→21:44)
[2016-11-23] MEDS: SODIUM CHLORIDE 0.9% 1000ML 1,000 ML IV SCH (00:41)
[2016-11-23] MEDS: ALBUT/IPRATROP 3MG/0.5MG NEB 3 ML VIAL INH SCH ×6 (03:14→23:31)
[2016-11-23 04:05] LABS: HEMATOCRIT 23.3 % (42-52); IG% 0.3 %; LYMPH % 7.1 %; LYMPH ABS # 0.82 K/uL (1.2-3.4); MEAN CELL VOLUME 102.2 fL (80-100); MEAN CORPUSCULAR HGB CONC 31.3 g/dl (32-36); MEAN PLATELET VOLUME 12.2 fL (7.4-10.4); MONO % 1.8 %; NEUT % 90.8 %; PLATELET COUNT 150 K/uL (130-400); RED BLOOD COUNT 2.28 M/uL (4.7-6.1); WHITE BLOOD COUNT 11.63 K/uL (4.8-10.8)
[2016-11-23 04:22] LABS: BUN/CREATININE RATIO 50.3 (10-20); CALCIUM 7.5 mg/dl (8.5-10.1); CREATININE 0.8 mg/dl (0.60-1.40); MAGNESIUM 2.5 mg/dl (1.8-2.4); POTASSIUM 4.4 mmol/L (3.5-5.1)
[2016-11-23 04:40] LABS: ANISOCYTOSIS PRESENT; COMPLETE YES; POLYCHROMASIA 1+
[2016-11-23] MEDS: SODIUM CHLORIDE 0.45% 1000ML 1,000 ML IV SCH ×2 (05:09→19:34)
[2016-11-23] MEDS: METHYLPREDNISOLONE IV 40 MG in SYRINGE 0 ML IV SCH (05:34)
[2016-11-23] MEDS: ACETAMINOPHEN IV 650 MG in EMPTY BAG 0 ML IV PRN ×3 (08:23→23:27)
--- NOTE | 2016-11-23 08:35 | DIAGNOSTIC IMAGING REPORT ---
CHEST AND ABDOMEN 2 VIEWS HISTORY: Abdominal distention. COMPARISON: Abdomen and pelvis CTA 11/22/2016. FINDINGS: No pneumothorax. Old, healed right-sided rib fractures. No focal lung consolidations to suggest pneumonia. No evidence for pulmonary edema. The heart is normal in size. No pneumoperitoneum. No pneumatosis. Large amount well-formed stool seen throughout the colon rectum resulting and mild distention of the large bowel. No dilated loops of small bowel to suggest a small bowel obstruction. No renal calculi. IMPRESSION: 1. No acute process within the chest. 2. Large amount well-formed stool seen throughout the colon and rectum resulting in mild distention of the large bowel. Electronically signed by: Eugenio Otto M.D. 11/23/2016 8:34 AM Dictated Date/Time: 11/23/2016 8:32 AM
[2016-11-23] MEDS ORDERED: PANTOprazole INJ 40 MG in SYRINGE 0 ML IV SCH (09:00)
[2016-11-23] MEDS ORDERED: PANTOprazole SOD 40 MG TAB PO SCH (09:00)
[2016-11-23 10:32] LABS: HEMATOCRIT 19.9 % (42-52)
[2016-11-23] MEDS ORDERED: SOAP SUDS ENEMA PR ONE (11:30)
[2016-11-23] MEDS ORDERED: VANCOMYCIN INJ 750 MG in SODIUM CHLORIDE 0.9% 250ML 250 ML IV SCH (12:00)
--- NOTE | 2016-11-23 12:23 | CRITICAL CARE PROGRESS NOTE ---
DATE: 11/23/2016 SUBJECTIVE: The patient wore his BiPAP overnight last night 14/7 24%. This morning, when both his nurse and I took his BIPAP off on two separate occasions, he started to become tachypneic and demand water. He would not really answer questions or did so by telling me that he needs water. When he was distracted, he did not appear tachypneic. He complains of abdominal pain and thirst. He had a soapsuds enema last night which produced brown stool, guaiac positive. No further bowel movements. No vomiting. PHYSICAL EXAMINATION: VITAL SIGNS: Temperature 37.6, heart rate 96-104, respiratory rate 18-30, blood pressure 100-118/50s-60s, oxygen saturation 97-100% on 3 liters nasal cannula, 24-hour fluid balance positive 1.8 liters. GENERAL: He is awake. NEUROLOGIC: When encouraged he will follow commands. When I ask him where he is, he states "I don't know." When I ask him the year he says very clearly "I don't know." He knows his name. He can carry on a conversation if he wants to. LUNGS: Clear with decreased breath sounds throughout. No rales, rhonchi or wheezes. HEART: Mildly tachycardic, regular. No murmurs. ABDOMEN: Flat, a bit firm, diffusely tender. No rebound or guarding. EXTREMITIES: A bit cool. No edema. LABORATORIES: White blood cell count 11.63, hemoglobin 7.3 followup 6.2, hematocrit 23.3 and platelets 150. Sodium 150, potassium 4.4, chloride 114, CO2 31, BUN 40, creatinine 0.8, blood sugar 109, calcium 7.5, magnesium 2.5, alkaline phosphatase 43 and albumin 2.6. Procalcitonin 0.18 and random cortisol 58. Urine and blood cultures are pending. Abdominal and chest x-rays were reviewed today. The chest is clear and there is still a large amount of well-formed stool throughout the colon resulting in mild distention of the large bowel. MEDICATIONS: Acetaminophen, DuoNeb, Solu-Medrol, Zofran, Protonix, Zosyn, vancomycin and half normal saline 60 mL per hour. EKG shows sinus tachycardia with nonspecific ST-T wave changes. IMPRESSION: 1. Abdominal pain secondary to constipation and ileus. 2. Heme positive stool. 3. Anemia, possibly secondary to acute blood loss. NG tube was attempted yesterday without success. CT angio abdomen done yesterday. 4. Metabolic encephalopathy, improved. 5. Hypercapnic respiratory failure which may have been secondary to the morphine that he received, improved. 6. Possible chronic obstructive pulmonary disease, today I think it is less likely that he is having any kind of exacerbation. 7. 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 8. Dysphagia and dysphonia, not new problems. 9. Acute kidney injury, likely secondary to dehydration. 10. History of hepatitis C PLAN: NEUROLOGIC: Avoid sedatives. I have the sense that he can be more engaged and follow commands if he really wants to. Avoid narcotics, secondary to his constipation. He has acetaminophen ordered for pain. PULMONARY: Off BiPAP and decrease Solu-Medrol. CARDIOVASCULAR: No acute active issues. GASTROINTESTINAL: Soapsuds enema and consider clear liquid diet. If he has overtly bloody stools or dropped his hemoglobin again consider Protonix infusion and GI consult. Lactulos if no result from the enema. HEMATOLOGIC: Check blood counts every 6 hours, transfuse as needed. SCDs for DVT prophylaxis. RENAL: Continue IV fluids. INFECTIOUS DISEASE: Continue broad spectrum antibiotics and wait for any cultures. ENDOCRINE: Check a TSH. He is getting a PICC line. I will order physical therapy and occupational therapy. [facility]
--- NOTE | 2016-11-23 14:24 | Progress Note ---
Medicine Progress Note Date & Time of Visit: Nov 23, 2016 at 14:13. Subjective patient seen resting in bed, RN and Officers at bedside appears comfortable overall, not in distress states "i want water", thinks he has been here since 5 months ago, re-oriented denies abdominal pain ,nausea had soap cortez enema this afternoon, minimal BM, brown/formed no chest pain, dyspnea, dizziness, palpitations on my exam no other symptoms Objective Last 8 Hrs Date Time Temp Pulse Resp B/P (MAP) Pulse Ox O2 Delivery O2 Flow Rate FiO2 11/23/16 12:31 114 34 111/60 11/23/16 12:30 37.6 11/23/16 12:23 116 36 105/66 100 11/23/16 12:12 37.5 11/23/16 12:12 113 32 108/57 11/23/16 12:00 Nasal Cannula 2.0 11/23/16 11:58 113 18 100 Nasal Cannula 2.0 11/23/16 11:01 105 26 107/66 85 11/23/16 10:01 109 21 103/60 98 11/23/16 09:01 106 32 118/58 97 11/23/16 08:02 96 26 101/61 100 11/23/16 08:00 36.7 11/23/16 08:00 BiPAP 24 11/23/16 07:30 100 100 24 11/23/16 07:29 100 18 100 BiPAP/CPAP 24 11/23/16 07:01 106 30 106/61 96 Physical Exam: General- oriented x 1, not in distress, speaks in sentences with no effort Head- atraumatic Eyes- EOMI, anicteric ENT- oropharynx clear Neck- supple, no JVD, no adenopathy, no thyromegaly Lungs- clear breath sounds bilaterally Heart- regular rhythm; no murmur, normal rate Abdomen- normal bowel sounds, soft, nontender Extremities- no pretibial edema, no calf tenderness Neuro- alert, oriented x 1; no gross focal neuro deficits Skin- warm & dry Laboratory Results: Last 24 Hours Test 11/22/16 16:24 11/22/16 16:55 11/22/16 17:24 11/22/16 18:16 Creatine Kinase MB Ratio Urine Color YELLOW Urine Appearance CLEAR Urine pH 5.0 Urine Specific [place] > 1.045 Urine Protein NEG Urine Glucose (UA) NEG Urine Ketones NEG Urine Occult Blood TRACE Urine Nitrite NEG Urine Bilirubin NEG Urine Urobilinogen NEG Urine Leukocyte Esterase NEG Urine WBC (Auto) 1-5 /hpf Urine RBC (Auto) 0-4 /hpf Urine Hyaline Casts (Auto) 1-5 /lpf Urine Epithelial Cells (Auto) 10-20 /lpf Urine Bacteria (Auto) NEG Urine Opiates Screen POS Urine Methadone, Qualitative NEG Urine Barbiturates NEG Urine Phencyclidine (PCP) Level NEG Ur Amphetamine/Methamphetamine NEG MDMA (Ecstasy) Screen NEG Urine Benzodiazepines Screen NEG Urine Cocaine Metabolite NEG Urine Marijuana (THC) NEG Hemoglobin 8.6 g/dL Hematocrit 27.0 % Erythrocyte Sedimentation Rate 2 mm/hr Prothrombin Time 11.1 SECONDS Prothromb Time International Ratio 1.0 Activated Partial Thromboplast Time 27.3 SECONDS Partial Thromboplastin Ratio 1.1 Sodium Level 149 mmol/L Potassium Level 5.0 mmol/L Chloride Level 112 mmol/L Carbon Dioxide Level 32 mmol/L Anion Gap 5.0 mmol/L Blood Urea Nitrogen 57 mg/dl Creatinine 0.95 mg/dl Est Creatinine Clear Calc Drug Dose 51.4 ml/min Estimated GFR () 92.3 Estimated GFR (Non- 79.7 BUN/Creatinine Ratio 59.8 Random Glucose 104 mg/dl Calcium Level 7.8 mg/dl Phosphorus Level 5.3 mg/dl Total Creatine Kinase 432 U/L Creatine Kinase MB 6.8 ng/ml Troponin I 0.033 ng/ml C-Reactive Protein 1.06 mg/dl Pro-B-Type Natriuretic Peptide 820 pg/ml Amylase Level 62 U/L Lipase 147 U/L Procalcitonin 0.23 ng/ml Random Cortisol 58.01 mcg/dl Bedside Hemoglobin 8.8 g/dl Bedside Hematocrit 26 % Bedside Blood Gas pH (LAB) 7.27 Bedside Blood Gas pCO2 (LAB) 67 mmHg Bedside Blood Gas pO2 (LAB) 126 mmHg Bedside Blood Gas HCO3 (LAB) 31 meq/L Bedside Blood Gas Total CO2 33 mEq/l Bedside Blood Gas Base Excess (LAB) 4.0 meq/L Bedside Blood Gas O2 Saturation 98.0 % Bedside Sodium 147 mEq/L Bedside Potassium 4.3 mEq/L Test 11/22/16 21:27 11/22/16 21:53 11/23/16 00:12 11/23/16 03:55 Stool Occult Blood POSITIVE Hemoglobin 8.1 g/dL 7.3 g/dL Hematocrit 25.3 % 23.3 % Lactic Acid Level 1.1 mmol/L 0.7 mmol/L Bedside Glucose 104 mg/dl White Blood Count 11.63 K/uL Red Blood Count 2.28 M/uL Mean Corpuscular Volume 102.2 fL Mean Corpuscular Hemoglobin 32.0 pg Mean Corpuscular Hemoglobin Concent 31.3 g/dl Platelet Count 150 K/uL Mean Platelet Volume 12.2 fL Neutrophils (%) (Auto) 90.8 % Lymphocytes (%) (Auto) 7.1 % Monocytes (%) (Auto) 1.8 % Eosinophils (%) (Auto) 0.0 % Basophils (%) (Auto) 0.0 % Neutrophils # (Auto) 10.57 K/uL Lymphocytes # (Auto) 0.82 K/uL Monocytes # (Auto) 0.21 K/uL Eosinophils # (Auto) 0.00 K/uL Basophils # (Auto) 0.00 K/uL RDW Standard Deviation 78.2 fL RDW Coefficient of Variation 21.4 % Immature Granulocyte % (Auto) 0.3 % Immature Granulocyte # (Auto) 0.03 K/uL Nucleated RBC Absolute Count (auto) 0.09 K/uL Nucleated Red Blood Cells % 0.8 % Polychromasia 1+ Anisocytosis PRESENT Sodium Level 150 mmol/L Potassium Level 4.4 mmol/L Chloride Level 114 mmol/L Carbon Dioxide Level 31 mmol/L Anion Gap 5.0 mmol/L Blood Urea Nitrogen 40 mg/dl Creatinine 0.80 mg/dl Est Creatinine Clear Calc Drug Dose 61.0 ml/min Estimated GFR () 103.4 Estimated GFR (Non- 89.2 BUN/Creatinine Ratio 50.3 Random Glucose 109 mg/dl Calcium Level 7.5 mg/dl Magnesium Level 2.5 mg/dl Total Bilirubin 0.9 mg/dl Aspartate Amino Transf (AST/SGOT) 22 U/L Alanine Aminotransferase (ALT/SGPT) 23 U/L Alkaline Phosphatase 43 U/L Total Protein 5.3 gm/dl Albumin 2.6 gm/dl Globulin 2.7 gm/dl Albumin/Globulin Ratio 1.0 Procalcitonin 0.18 ng/ml Test 11/23/16 05:33 11/23/16 10:17 11/23/16 12:10 Bedside Glucose 101 mg/dl 121 mg/dl Hemoglobin 6.2 g/dL Hematocrit 19.9 % Date/Time Source Procedure Growth Status 11/22/16 16:55 Urine,Catheterized Urine Culture - Preliminary NO GROWTH - LESS THAN 1,000 COLONIES/... Resulted Assessment & Plan 71 year old male with history of GERD, Laryngeal CA , Hep C presenting with low Hg. ANEMIA possible GI Bleed - (+) FOBT - Hg 6 s/p 2 units PRBC repeat Hg pending - stools brown per RN -CT Abd/pelvis negative -- on Protonix BID NPO check anemia panel will consult GI ABDOMINAL PAIN, CONSTIPATION, ILEUS CT abd/pelvis with bowel filled colon and rectum -- soap suds enema PRN POSSIBLE SEPSIS Unknown source CXR clear Lactate 4 -- afebrile, WBC decreasing, lactic acid normal -- ff up cultures -- on empiric Zosyn IV ACUTE HYPERCAPNEIC RESPIRATORY FAILURE -- likely from narcotics -- off bipap awake, alert -- CXR: emphysematous changea nd CT angio unrevealing on Nebs, Solumedrol monitor HYPERNATREMIA on 06/09 NSS repeat PRP this afternoon DVT PROPHYLAXIS no anticoagulation due to suspicion of GI bleed SCDs Current Inpatient Medications: Current Inpatient Medications Medications (Trade) Dose Ordered Sig/Vera Route Start Time Stop Time Status Last Admin Dose Admin Ioversol (Optiray 320) 111 ml UD PRN IV 11/22/16 10:30 11/26/16 10:29 Acetaminophen (Tylenol Tab) 650 mg Q4H PRN PO 11/22/16 15:00 12/22/16 14:59 Piperacillin Sod/ Tazobactam Sod (Consult) 1 ea UD PRN N/A 11/22/16 16:45 12/22/16 16:44 Pantoprazole Sodium 40 mg/ Syringe 10 ml @ 5 mls/min BID@0900,2100 IV 11/23/16 09:00 12/23/16 08:59 11/23/16 08:23 5 MLS/MIN Piperacillin Sod/ Tazobactam Sod 4.5 gm/Dextrose 120 ml @ 30 mls/hr Q8H IV 11/23/16 00:00 12/07/16 00:00 11/23/16 08:22 30 MLS/HR Albuterol/ Ipratropium (Duoneb) 3 ml Q4R INH 11/22/16 20:00 12/22/16 19:59 11/23/16 11:58 3 ML Ondansetron HCl (Zofran Inj) 4 mg Q6H PRN IV 11/22/16 17:45 12/22/16 17:44 11/23/16 00:39 4 MG Methylprednisolone Sodium Succinate 40 mg/Syringe 0.64 ml @ 1.5 mls/min Q8H IV 11/22/16 22:00 12/22/16 21:59 11/23/16 05:34 1.5 MLS/MIN Sodium Chloride 1,000 ml @ 60 mls/hr [id number] IV 11/23/16 05:00 12/23/16 04:59 11/23/16 05:09 60 MLS/HR Acetaminophen 650 mg/Empty Bag 65 ml @ 260 mls/hr Q6H PRN IV 11/23/16 08:00 12/23/16 07:59 11/23/16 08:23 260 MLS/HR Heparin Sodium (Porcine) (Heparin 10 Unit/ ml 5 ml Flush) 5 ml PRN PRN FLUSH 11/23/16 12:30 12/23/16 12:29
[2016-11-23] MEDS ORDERED: LACTULOSE SYRUP 30 GM/45 ML UDP PO STA (14:40)
[2016-11-23 16:49] LABS: HEMATOCRIT 19.9 % (42-52)
[2016-11-23] MEDS ORDERED: CEROVITE ADV FORMULA TAB PO ONE (16:50)
[2016-11-23 16:51] LABS: BUN/CREATININE RATIO 48.4 (10-20); CALCIUM 7.1 mg/dl (8.5-10.1); CREATININE 0.81 mg/dl (0.60-1.40); POTASSIUM 4.3 mmol/L (3.5-5.1)
[2016-11-23] MEDS ORDERED: MoRPHine SULFATE 2 MG/ML CARP IV STA (16:59)
[2016-11-23] MEDS ORDERED: PANTOprazole INJ 80 MG in DEXTROSE 5% 100ML IV ONE (17:30)
[2016-11-23] MEDS: PANTOprazole INJ 40 MG in DEXTROSE 5% 100ML IV SCH ×2 (17:31→20:58)
[2016-11-23] MEDS ORDERED: METHYLPREDNISOLONE IV 40 MG in SYRINGE 0 ML IV SCH (18:00)
[2016-11-23] MEDS ORDERED: OCTREOTIDE IV BOLUS & DRIP IV STA (18:46)
[2016-11-23] MEDS ORDERED: OCTREOTIDE ACETATE INJ 100 MCG in SYRINGE 9 ML IV ONE (19:30)
[2016-11-23] MEDS: OCTREOTIDE ACETATE INJ 500 MCG in NSS 100ML IV SCH (19:33)
[2016-11-23] MEDS ORDERED: POLYETHYLENE (MIRALAX) 17 GM PACK PO SCH (21:00)
[2016-11-23 21:03] LABS: HEMATOCRIT 26.8 % (42-52)
[2016-11-23 21:20] LABS: BUN/CREATININE RATIO 39.4 (10-20); CREATININE 1.1 mg/dl (0.60-1.40); POTASSIUM 4.4 mmol/L (3.5-5.1)
[2016-11-23 21:53] LABS: CALCIUM 7.4 mg/dl (8.5-10.1)
[2016-11-24] VITALS (75 sets, daily range): BP systolic 73–108; BP diastolic 35–84; PULSE 87–129; TEMP 36.6–37.1; O2SAT 26–100
[2016-11-24 00:14] LABS: HEMATOCRIT 22.7 % (42-52)
[2016-11-24] MEDS: ALBUT/IPRATROP 3MG/0.5MG NEB 3 ML VIAL INH SCH ×6 (03:07→23:25)
[2016-11-24] MEDS: PANTOprazole INJ 40 MG in DEXTROSE 5% 100ML IV SCH ×4 (03:08→19:56)
[2016-11-24] MEDS: OCTREOTIDE ACETATE INJ 500 MCG in NSS 100ML IV SCH (04:17)
[2016-11-24 06:06] LABS: BUN/CREATININE RATIO 36.3 (10-20); CREATININE 1.2 mg/dl (0.60-1.40); MAGNESIUM 2.3 mg/dl (1.8-2.4); POTASSIUM 4.7 mmol/L (3.5-5.1)
[2016-11-24 06:07] LABS: COMPLETE YES; HEMATOCRIT 30.3 % (42-52); IG% 0.3 %; LYMPH % 7.6 %; LYMPH ABS # 1.05 K/uL (1.2-3.4); MEAN CELL VOLUME 91.8 fL (80-100); MEAN CORPUSCULAR HEMOGLOBIN 31.2 pg (25-34); MEAN PLATELET VOLUME 12.3 fL (7.4-10.4); MONO % 9.4 %; NEUT % 82.7 %; PLATELET COUNT 70 K/uL (130-400); PLT ESTIMATE DECREASED
[2016-11-24] MEDS ORDERED: CALCIUM CHLORIDE 10% 10 ML SYR IV STA (06:07)
[2016-11-24 06:22] LABS: ALB/GLOB RATIO 1.1 (0.9-2); THYROID STIMULATING HORMONE 0.125 uIu/ml (0.300-4.500)
--- NOTE | 2016-11-24 07:16 | DIAGNOSTIC IMAGING REPORT ---
ABDOMEN 2VIEW W/PA CHEST RTN CLINICAL HISTORY: ABD PAIN, CONSTIPATION pain COMPARISON STUDY: 11/23/2016 FINDINGS: Lungs remain clear. No evidence of cardiac enlargement. Mild generalized colonic distention similar to the prior study. IMPRESSION: Generalized colonic ileus. Negative chest. Electronically signed by: Lui Duncan M.D. 11/24/2016 7:14 AM Dictated Date/Time: 11/24/2016 7:13 AM
[2016-11-24] MEDS: PIPERACILL/TAZOBAC IV 4.5 GM in DEXTROSE 5% 100ML IV SCH ×2 (07:19→16:57)
--- NOTE | 2016-11-24 08:18 | Gastrointestinal Consultation ---
Gastrointestinal Consultation Date of Consultation: Nov 24, 2016 Attending Physician: Tobin Consulting Physician: Shaheed Reason for Consultation: anemia, ?GI bleed History of Present Illness Patient is a 71 year old male w/ PMH significant for hepatitis C, h/x of H. pylori, Hx Sq Cell CA of vocal cords, GERD, anxiety and glaucoma who presented through the ED from [facility] after being found on the floor following an unresponsive episode - theses was report of black stool x 3 days prior to admission. HGB on admission was 8.5 --> 6.2 --> 6 units --> 10.3. Anna colored stools developed yesterday and continued overnight with runs of tachycardia. Pt was seen and evaluated this AM. He is a poor historian and tells me he already had an EGD two days ago. Reports abdominal discomfort pointing to epigastric region. Associated with nausea no emesis. Per nursing staff loose, anna colored stools continued this AM. Denies chest pain or SOB. No fever or chills. KUB 11/24/16: Lungs remain clear. No evidence of cardiac enlargement. Mild generalized colonic distention similar to the prior study. KUB 11/23/16: No pneumothorax. Old, healed right-sided rib fractures. No focal lung consolidations to suggest pneumonia. No evidence for pulmonary edema. The heart is normal in size. No pneumoperitoneum. No pneumatosis. Large amount well- formed stool seen throughout the colon rectum resulting and mild distention of the large bowel. No dilated loops of small bowel to suggest a small bowel obstruction. No renal calculi. CTA 11/22/16: Mild atherosclerotic change throughout the abdomen and pelvic arterial vasculature. No significant stenotic or aneurysmal process. Bowel pattern is consistent with that of a mild ileus. There is a considerable fecal impaction. Past Medical/Surgical History Medical Problems: (1) Anemia Status: Acute (2) Fecal impaction Status: Acute (3) Hypercapnia Status: Acute (4) Lactic acid acidosis Status: Acute (5) Leukocytosis Status: Acute (6) UGI bleed Status: Acute Past Medical History: Hep C, H.Pylori, squamous cell CA of vocal cords, groin hernia, GERD, glaucoma, anxiety Past Surgical History: Laryngeal biopsy, Laryngoscope Social History Smoking Status: Former Smoker Alcohol Use: none Drug Use: none Marital Status: single Housing Status: other Occupation Status: other Allergies Coded Allergies: No Known Allergies (Unverified , 11/22/16) Current Medications Home Meds and Scripts Medications Dose Route/Sig Max Daily Dose Days Date Category Resource Juice Drink (Nutritional Supplements) 1 Liq Liq 240 Ml PO DAILY 11/22/16 Reported Prilosec (Omeprazole) 40 Mg Cap 40 Mg PO DAILY 11/22/16 Reported Mylanta (Alum & Mag Hydrox-Simethicone) 1 Ruthy Ruthy 1 Dose PO UD PRN 04/16/16 Reported Artificial Tears (Artificial Tear Solution) 1 Jen Jen 1 Drops OP QID PRN 04/16/16 Reported Tylenol (Acetaminophen) 325 Mg Tab 650 Mg PO QID PRN 04/16/16 Reported Review of Systems Constitutional: No fever, No chills Respiratory: No cough, No shortness of breath Cardiac: No chest pain Abdomen: + pain, + nausea, + diarrhea, + GI bleeding, No vomiting, No constipation Physical Exam Date Time Temp Pulse Resp B/P (MAP) Pulse Ox O2 Delivery O2 Flow Rate FiO2 11/24/16 06:39 37.1 11/24/16 06:30 111 21 95/57 100 11/24/16 06:15 110 23 93/54 100 11/24/16 06:02 103 23 73/53 99 11/24/16 05:31 99 25 82/53 98 11/24/16 05:01 98 22 84/56 91 11/24/16 04:32 103 28 85/54 95 11/24/16 04:30 36.8 101 24 85/54 99 2.0 11/24/16 04:22 108 27 89/84 93 11/24/16 04:16 108 26 95/58 96 11/24/16 04:00 100 Nasal Cannula 2.0 11/24/16 04:00 36.7 11/24/16 03:46 104 23 98/61 100 11/24/16 03:31 108 23 81/56 100 11/24/16 03:30 36.7 108 24 81/56 100 2.0 11/24/16 03:16 108 26 80/63 100 11/24/16 03:01 109 24 104/73 100 11/24/16 03:00 36.8 112 23 104/73 100 2.0 11/24/16 02:46 109 23 99/66 100 11/24/16 02:44 36.7 109 23 99/66 100 2.0 11/24/16 02:29 36.6 104 21 89/56 100 2.0 11/24/16 02:16 104 22 89/56 100 11/24/16 02:01 104 21 76/47 100 11/24/16 02:00 36.6 104 21 76/47 100 2.0 11/24/16 01:46 106 22 77/54 100 11/24/16 01:45 36.6 106 22 77/54 100 2.0 11/24/16 01:31 107 23 95/55 100 11/24/16 01:16 118 26 87/63 100 11/24/16 01:15 36.7 118 25 87/63 100 2.0 11/24/16 01:01 128 27 102/49 100 11/24/16 01:00 36.7 129 27 102/49 100 2.0 11/24/16 00:57 36.7 114 23 80/55 100 2.0 11/24/16 00:52 116 24 80/55 100 11/24/16 00:31 112 22 82/55 100 11/24/16 00:01 36.7 11/24/16 00:01 109 23 84/58 100 11/23/16 23:59 95 Nasal Cannula 2.0 11/23/16 23:31 108 18 95 Nasal Cannula 2.0 11/23/16 23:31 109 26 87/62 100 11/23/16 23:02 116 25 110/63 100 11/23/16 22:31 110 26 94/63 100 11/23/16 22:01 113 23 95/57 100 11/23/16 21:31 110 28 96/59 100 11/23/16 21:02 112 22 103/57 99 11/23/16 20:31 113 24 81/56 95 1817 20:30 36.5 107 15 81/56 100 11/23/16 20:16 118 20 79/54 98 11/23/16 20:06 122 20 92/53 99 11/23/16 20:05 36.5 122 23 92/53 98 11/23/16 20:00 36.4 11/23/16 20:00 99 Nasal Cannula 24 6/18/17 19:35 36.5 109 28 96/56 99 618/17 19:32 108 96 24 618/17 19:32 108 18 95 BiPAP/CPAP 1817 19:31 109 22 96/56 100 618/17 19:20 36.5 109 21 93/60 99 618/17 19:16 108 21 88/59 100 618/17 19:16 108 21 88/59 100 618/17 19:15 112 23 97 18/17 19:15 36.5 113 23 93/60 100 18/17 19:02 109 32 93/60 97 18/17 18:46 109 19 86/60 99 18/17 18:31 110 20 75/49 98 18/17 18:16 116 24 81/42 97 18/17 18:09 36.8 11/23/17 18:01 120 23 75/45 96 18/17 17:12 125 28 88/59 11/23/17 17:09 124 25 71/52 18/17 16:42 36.9 11/23/17 16:00 Nasal Cannula 2.0 17 15:31 119 36 101/59 18/17 15:17 106 18 96 Nasal Cannula 2.0 17 15:02 118 28 107/64 18/17 14:31 104 29 93/57 18/17 14:30 37.5 618/17 14:03 183 30 135/62 97 18/17 14:00 37.4 618/17 13:31 105 27 105/60 618/17 13:01 110 27 103/60 618/17 13:00 37.5 618/17 13:00 37.5 618/17 12:46 111 30 105/67 618/17 12:31 114 34 111/60 618/17 12:30 37.6 618/17 12:23 116 36 105/66 100 618/17 12:12 37.5 618/17 12:12 113 32 108/57 18/17 12:00 Nasal Cannula 2.0 18/17 11:58 113 18 100 Nasal Cannula 2.0 6/18/17 11:01 105 26 107/66 85 11/23/16 10:01 109 21 103/60 98 11/23/16 09:01 106 32 118/58 97 11/23/16 08:02 96 26 101/61 100 General Appearance: no apparent distress Eyes: PERRL ENT: hearing grossly normal Neck: supple, trachea midline Respiratory/Chest: chest non-tender, no accessory muscle use, + decreased breath sounds (bilaterally), + pertinent finding (wearing O2) Cardiovascular: regular rate, rhythm, no edema, no gallop Abdomen: normal bowel sounds, non tender, soft, no organomegaly Neurologic/Psych: alert, + pertinent finding (oriented to self) Skin: warm/dry, no rash Laboratory Results Last 24 Hours Test 11/23/16 10:17 11/23/16 12:10 11/23/16 16:24 11/23/16 20:56 Hemoglobin 6.2 g/dL 6.4 g/dL 9.0 g/dL Hematocrit 19.9 % 19.9 % 26.8 % Bedside Glucose 121 mg/dl Sodium Level 150 mmol/L 147 mmol/L Potassium Level 4.3 mmol/L 4.4 mmol/L Chloride Level 114 mmol/L 111 mmol/L Carbon Dioxide Level 32 mmol/L 28 mmol/L Anion Gap 4.0 mmol/L 8.0 mmol/L Blood Urea Nitrogen 39 mg/dl 43 mg/dl Creatinine 0.81 mg/dl 1.10 mg/dl Est Creatinine Clear Calc Drug Dose 61.8 ml/min 45.5 ml/min Estimated GFR () 102.9 77.3 Estimated GFR (Non- 88.8 66.7 BUN/Creatinine Ratio 48.4 39.4 Random Glucose 126 mg/dl 161 mg/dl Calcium Level 7.1 mg/dl 7.4 mg/dl Test 11/23/16 23:30 11/24/16 00:05 11/24/16 05:25 11/24/16 05:30 Bedside Glucose 136 mg/dl 162 mg/dl Hemoglobin 7.7 g/dL 10.3 g/dL Hematocrit 22.7 % 30.3 % White Blood Count 13.90 K/uL Red Blood Count 3.30 M/uL Mean Corpuscular Volume 91.8 fL Mean Corpuscular Hemoglobin 31.2 pg Mean Corpuscular Hemoglobin Concent 34.0 g/dl Platelet Count 70 K/uL Mean Platelet Volume 12.3 fL Neutrophils (%) (Auto) 82.7 % Lymphocytes (%) (Auto) 7.6 % Monocytes (%) (Auto) 9.4 % Eosinophils (%) (Auto) 0.0 % Basophils (%) (Auto) 0.0 % Neutrophils # (Auto) 11.50 K/uL Lymphocytes # (Auto) 1.05 K/uL Monocytes # (Auto) 1.31 K/uL Eosinophils # (Auto) 0.00 K/uL Basophils # (Auto) 0.00 K/uL RDW Standard Deviation 52.0 fL RDW Coefficient of Variation 15.8 % Immature Granulocyte % (Auto) 0.3 % Immature Granulocyte # (Auto) 0.04 K/uL Nucleated RBC Absolute Count (auto) 0.37 K/uL Nucleated Red Blood Cells % 2.7 % Platelet Estimate DECREASED Red Blood Cell Morphology Unremarkable Sodium Level 146 mmol/L Potassium Level 4.7 mmol/L Chloride Level 112 mmol/L Carbon Dioxide Level 31 mmol/L Anion Gap 3.0 mmol/L Blood Urea Nitrogen 44 mg/dl Creatinine 1.20 mg/dl Est Creatinine Clear Calc Drug Dose 41.7 ml/min Estimated GFR () 69.6 Estimated GFR (Non- 60.1 BUN/Creatinine Ratio 36.3 Random Glucose 162 mg/dl Calcium Level 7.0 mg/dl Phosphorus Level 4.0 mg/dl Magnesium Level 2.3 mg/dl Total Bilirubin 0.9 mg/dl Aspartate Amino Transf (AST/SGOT) 17 U/L Alanine Aminotransferase (ALT/SGPT) 22 U/L Alkaline Phosphatase 26 U/L Total Protein 3.7 gm/dl Albumin 1.9 gm/dl Globulin 1.8 gm/dl Albumin/Globulin Ratio 1.1 Vitamin B12 Level 286 pg/mL Folate 4.97 ng/mL Thyroid Stimulating Hormone (TSH) 0.125 uIu/ml Impression Patient is a 71 year old male with history of squamous cell CA of vocal cords, GERD and hepatitis C who presented after an unresponsive episode at [facility] with reports of melena x 3 days prior to admission, ileus on admission, and development of anna colored stools requiring 6 units. Plan NPO EGD today Continue present medications - further recommendations pending results of EGD I have seen and evaluated the patient. GI is consulted for a suspicion of UGI bleeding requiring several units of transfusion since admission. HIstory is notable for a laryngeal cancer (S/P chemoradiation therapy) PE: ill appearing, Tachycrdia Impression: patient with suspected UGI bleeding, will plan for EGD today for further evalaution and treatment. risks discussed to include bleeding, infection, perforation, pain, aspiration, and need for further studies.
--- NOTE | 2016-11-24 08:42 | Progress Note ---
Medicine Progress Note Date & Time of Visit: Nov 24, 2016 at 08:30. Subjective had hematochezia yesterday late afternoon, overnight and this morning has had 6 units pRBC so far on exam, alert, oriented x 2 states he feels improved compared to yesterday denies abdominal pain, nausea no chest pain, has mild dyspnea, no dizziness, palpitations no other symptoms Objective Last 8 Hrs Date Time Temp Pulse Resp B/P (MAP) Pulse Ox O2 Delivery O2 Flow Rate FiO2 11/24/16 06:39 37.1 11/24/16 06:30 111 21 95/57 100 11/24/16 06:15 110 23 93/54 100 11/24/16 06:02 103 23 73/53 99 11/24/16 05:31 99 25 82/53 98 11/24/16 05:01 98 22 84/56 91 11/24/16 04:32 103 28 85/54 95 11/24/16 04:30 36.8 101 24 85/54 99 2.0 11/24/16 04:22 108 27 89/84 93 11/24/16 04:16 108 26 95/58 96 11/24/16 04:00 100 Nasal Cannula 2.0 11/24/16 04:00 36.7 11/24/16 03:46 104 23 98/61 100 11/24/16 03:31 108 23 81/56 100 11/24/16 03:30 36.7 108 24 81/56 100 2.0 11/24/16 03:16 108 26 80/63 100 11/24/16 03:01 109 24 104/73 100 11/24/16 03:00 36.8 112 23 104/73 100 2.0 11/24/16 02:46 109 23 99/66 100 11/24/16 02:44 36.7 109 23 99/66 100 2.0 11/24/16 02:29 36.6 104 21 89/56 100 2.0 11/24/16 02:16 104 22 89/56 100 11/24/16 02:01 104 21 76/47 100 11/24/16 02:00 36.6 104 21 76/47 100 2.0 11/24/16 01:46 106 22 77/54 100 11/24/16 01:45 36.6 106 22 77/54 100 2.0 11/24/16 01:31 107 23 95/55 100 11/24/16 01:16 118 26 87/63 100 11/24/16 01:15 36.7 118 25 87/63 100 2.0 11/24/16 01:01 128 27 102/49 100 11/24/16 01:00 36.7 129 27 102/49 100 2.0 11/24/16 00:57 36.7 114 23 80/55 100 2.0 11/24/16 00:52 116 24 80/55 100 11/24/16 00:31 112 22 82/55 100 Physical Exam: General- oriented x 2, not in distress, speaks in sentences with no effort Eyes- anicteric Neck- no JVD Lungs- clear breath sounds bilaterally, no rales/wheezes Heart- regular rhythm; no murmur, normal rate Abdomen- normal bowel sounds, non distended, soft, mild generalized tenderness Extremities- no pretibial edema, no calf tenderness Neuro- alert, oriented x 2; no gross focal neuro deficits Skin- warm & dry Laboratory Results: Last 24 Hours Test 11/23/16 10:17 11/23/16 12:10 11/23/16 16:24 11/23/16 20:56 Hemoglobin 6.2 g/dL 6.4 g/dL 9.0 g/dL Hematocrit 19.9 % 19.9 % 26.8 % Bedside Glucose 121 mg/dl Sodium Level 150 mmol/L 147 mmol/L Potassium Level 4.3 mmol/L 4.4 mmol/L Chloride Level 114 mmol/L 111 mmol/L Carbon Dioxide Level 32 mmol/L 28 mmol/L Anion Gap 4.0 mmol/L 8.0 mmol/L Blood Urea Nitrogen 39 mg/dl 43 mg/dl Creatinine 0.81 mg/dl 1.10 mg/dl Est Creatinine Clear Calc Drug Dose 61.8 ml/min 45.5 ml/min Estimated GFR () 102.9 77.3 Estimated GFR (Non- 88.8 66.7 BUN/Creatinine Ratio 48.4 39.4 Random Glucose 126 mg/dl 161 mg/dl Calcium Level 7.1 mg/dl 7.4 mg/dl Test 11/23/16 23:30 11/24/16 00:05 11/24/16 05:25 11/24/16 05:30 Bedside Glucose 136 mg/dl 162 mg/dl Hemoglobin 7.7 g/dL 10.3 g/dL Hematocrit 22.7 % 30.3 % White Blood Count 13.90 K/uL Red Blood Count 3.30 M/uL Mean Corpuscular Volume 91.8 fL Mean Corpuscular Hemoglobin 31.2 pg Mean Corpuscular Hemoglobin Concent 34.0 g/dl Platelet Count 70 K/uL Mean Platelet Volume 12.3 fL Neutrophils (%) (Auto) 82.7 % Lymphocytes (%) (Auto) 7.6 % Monocytes (%) (Auto) 9.4 % Eosinophils (%) (Auto) 0.0 % Basophils (%) (Auto) 0.0 % Neutrophils # (Auto) 11.50 K/uL Lymphocytes # (Auto) 1.05 K/uL Monocytes # (Auto) 1.31 K/uL Eosinophils # (Auto) 0.00 K/uL Basophils # (Auto) 0.00 K/uL RDW Standard Deviation 52.0 fL RDW Coefficient of Variation 15.8 % Immature Granulocyte % (Auto) 0.3 % Immature Granulocyte # (Auto) 0.04 K/uL Nucleated RBC Absolute Count (auto) 0.37 K/uL Nucleated Red Blood Cells % 2.7 % Platelet Estimate DECREASED Red Blood Cell Morphology Unremarkable Sodium Level 146 mmol/L Potassium Level 4.7 mmol/L Chloride Level 112 mmol/L Carbon Dioxide Level 31 mmol/L Anion Gap 3.0 mmol/L Blood Urea Nitrogen 44 mg/dl Creatinine 1.20 mg/dl Est Creatinine Clear Calc Drug Dose 41.7 ml/min Estimated GFR () 69.6 Estimated GFR (Non- 60.1 BUN/Creatinine Ratio 36.3 Random Glucose 162 mg/dl Calcium Level 7.0 mg/dl Phosphorus Level 4.0 mg/dl Magnesium Level 2.3 mg/dl Total Bilirubin 0.9 mg/dl Aspartate Amino Transf (AST/SGOT) 17 U/L Alanine Aminotransferase (ALT/SGPT) 22 U/L Alkaline Phosphatase 26 U/L Total Protein 3.7 gm/dl Albumin 1.9 gm/dl Globulin 1.8 gm/dl Albumin/Globulin Ratio 1.1 Vitamin B12 Level 286 pg/mL Folate 4.97 ng/mL Thyroid Stimulating Hormone (TSH) 0.125 uIu/ml Free Thyroxine 0.64 ng/dl Assessment & Plan 71 year old male with history of GERD, Laryngeal CA , Hep C presenting with low Hg. HEMATOCHEZIA r/o UPPER GI BLEED - received total of 6 units pRBC H&H q6h - Protonix and Octreotide drip - NPO IV fluids - for EGD today ACUTE BLOOD LOSS ANEMIA - received total of 6 units pRBC H&H q6h THROMBOCYTOPENIA - 1 unit plateletpharesis ordered check INR/PTT ILEUS - NPO for now monitor electrolytes POSSIBLE SEPSIS Unknown source CXR clear Lactate 4 on admission -- afebrile, WBC slightly increased -- blood and urine cultures negative so far -- on empiric Zosyn IV ACUTE HYPERCAPNEIC RESPIRATORY FAILURE -- likely from narcotics -- off bipap awake, alert -- CXR: emphysematous changea nd CT angio unrevealing on Nebs Solumedrol discontinued monitor HYPERNATREMIA on 06/09 NSS Na improving DVT PROPHYLAXIS no anticoagulation due to suspicion of GI bleed SCDs Current Inpatient Medications: Current Inpatient Medications Medications (Trade) Dose Ordered Sig/Vera Route Start Time Stop Time Status Last Admin Dose Admin Ioversol (Optiray 320) 111 ml UD PRN IV 11/22/16 10:30 11/26/16 10:29 Acetaminophen (Tylenol Tab) 650 mg Q4H PRN PO 11/22/16 15:00 12/22/16 14:59 Future Hold Piperacillin Sod/ Tazobactam Sod (Consult) 1 ea UD PRN N/A 11/22/16 16:45 12/22/16 16:44 Piperacillin Sod/ Tazobactam Sod 4.5 gm/Dextrose 120 ml @ 30 mls/hr Q8H IV 11/23/16 00:00 12/07/16 00:00 11/24/16 07:19 30 MLS/HR Albuterol/ Ipratropium (Duoneb) 3 ml Q4R INH 11/22/16 20:00 12/22/16 19:59 11/24/16 07:29 3 ML Ondansetron HCl (Zofran Inj) 4 mg Q6H PRN IV 11/22/16 17:45 12/22/16 17:44 11/23/16 21:44 4 MG Sodium Chloride 1,000 ml @ 80 mls/hr [id number] IV 11/23/16 05:00 12/23/16 04:59 11/23/16 19:34 80 MLS/HR Acetaminophen 650 mg/Empty Bag 65 ml @ 260 mls/hr Q6H PRN IV 11/23/16 08:00 12/23/16 07:59 11/23/16 23:27 260 MLS/HR Heparin Sodium (Porcine) (Heparin 10 Unit/ ml 5 ml Flush) 5 ml PRN PRN FLUSH 11/23/16 12:30 12/23/16 12:29 Pantoprazole Sodium 40 mg/ Dextrose 100 ml @ 20 mls/hr Q5H IV 11/23/16 17:45 12/23/16 17:44 11/24/16 07:19 20 MLS/HR Octreotide Acetate 500 mcg/ Sodium Chloride 105 ml @ 10 mls/hr [id number] IV 11/23/16 19:30 12/23/16 19:29 11/24/16 04:17 10 MLS/HR
[2016-11-24] MEDS ORDERED: CEROVITE ADV FORMULA TAB PO SCH (09:00)
[2016-11-24 09:12] LABS: HEMATOCRIT 28.1 % (42-52)
[2016-11-24 09:27] LABS: INR 1.3 (0.9-1.1); PARTIAL THROMBOPLASTIN RATIO 1.4; PROTHROMBIN TIME (PATIENT) 13.9 SECONDS (9.0-12.0)
[2016-11-24] MEDS ORDERED: KETAMINE HCL INJ 50 MG/ML 10 ML VIAL ONE (10:45)
[2016-11-24] MEDS ORDERED: LIDOCAINE HCL 2% 2 ML VIAL (20MG/ML) ONE (10:45)
[2016-11-24] MEDS ORDERED: FENTANYL CITRATE INJ 50 MCG/1 ML 2 ML VIAL ONE (10:45)
[2016-11-24] MEDS ORDERED: PROPOFOL IV EMULSION 10 MG/ML 20 ML VIAL IV ONE (10:45)
[2016-11-24] MEDS ORDERED: EpHEDrine SULFATE INJ 50 MG/ML AMP IV PRN (11:15)
[2016-11-24] MEDS ORDERED: ATROPINE SULFATE 0.1 MG/ML 5ML SYR IV PRN (11:15)
--- NOTE | 2016-11-24 11:20 | GI REPORT ---
Procedure Date: 11/24/2016 10:42 AM Procedure: Upper GI endoscopy Indications: Hematochezia, Melena Medicines: Monitored Anesthesia Care Complications: No immediate complications. Estimated blood loss: Minimal. Estimated Blood Loss: Estimated blood loss was minimal. Procedure: Pre-Anesthesia Assessment: - Prior to the procedure, a History and Physical was performed, and patient medications, allergies and sensitivities were reviewed. The patient's tolerance of previous anesthesia was reviewed. - The risks and benefits of the procedure and the sedation options and risks were discussed with the patient. All questions were answered and informed consent was obtained. - Patient identification and proposed procedure were verified prior to the procedure by the physician, the nurse and the automatic data processing planner. The procedure was verified in the procedure room. - Pre-procedure physical examination revealed no contraindications to sedation. - ASA Grade Assessment: IV - A patient with severe systemic disease that is a constant threat to life. - After reviewing the risks and benefits, the patient was deemed in satisfactory condition to undergo the procedure. - The anesthesia plan was to use monitored anesthesia care (MAC). - Immediately prior to administration of medications, the patient was re-assessed for adequacy to receive sedatives. - The heart rate, respiratory rate, oxygen saturations, blood pressure, adequacy of pulmonary ventilation, and response to care were monitored throughout the procedure. - The physical status of the patient was re-assessed after the procedure. After obtaining informed consent, the endoscope was passed under direct vision. Throughout the procedure, the patient's blood pressure, pulse, and oxygen saturations were monitored continuously. The Scope was introduced through the mouth, and advanced to the third part of duodenum. The upper GI endoscopy was accomplished without difficulty. The patient tolerated the procedure well. Findings: The middle third of the esophagus and lower third of the esophagus were mildly tortuous. A medium-sized hiatus hernia was found. The proximal extent of the gastric folds (end of tubular esophagus) was 35 cm from the incisors. The hiatal narrowing was 38 cm from the incisors. The Z-line was 35 cm from the incisors. Diffuse moderate inflammation characterized by congestion (edema), erythema and granularity was found in the entire examined stomach. One non-obstructing non-bleeding cratered duodenal ulcer with a visible vessel was found in the duodenal bulb. The lesion was 30 mm in largest dimension. Area was successfully injected with 4 mL of a 1:10,000 solution of epinephrine for drug delivery. Coagulation for hemostasis using a 7 Fr Multipolar Silver probe was successful. Estimated blood loss: none. One non-bleeding cratered duodenal ulcer with no stigmata of bleeding was found in the first part of the duodenum. The lesion was 10 mm in largest dimension. The 2nd part of the duodenum and 3rd part of the duodenum were normal. Impression: - Tortuous esophagus. - Medium-sized hiatus hernia. - Gastritis. - One non-obstructing non-bleeding duodenal ulcer with a visible vessel. Injected. Treated with cautery. - Normal 2nd part of the duodenum and 3rd part of the duodenum. Recommendation: - Give Protonix (pantoprazole): 8 mg/hr IV by continuous infusion for 3 days. Then 40 mg twice daily for 6 weeks then 1 time daily thereafter. - Observe patient's clinical course following today's procedure with therapeutic intervention. - Clear liquid diet today. - Repeat EGD in 8 to 12 weeks - Please screen for H pylori with a stool study. Rajeev Rudd D.O. Rajeev Rudd, 11/24/2016 11:18:53 AM This report has been signed electronically. Note Initiated On: 11/24/2016 10:42 AM I attest to the content of the Intraoperative Record and orders documented therein, exceptions below
--- NOTE | 2016-11-24 11:23 | Anesthesiology Progress Note ---
Anesthesia Post Op Note Date & Time Nov 24, 2016 at 11:23 Vital Signs Pain Intensity: 0.0 Vital Signs Past 12 Hours Date Time Temp Pulse Resp B/P (MAP) Pulse Ox O2 Delivery O2 Flow Rate FiO2 11/24/16 10:20 36.7 105 22 76/58 (64) 95 Nasal Cannula 2 11/24/16 09:56 36.6 11/24/16 09:46 106 21 93/57 100 11/24/16 09:31 101 20 89/53 100 11/24/16 09:30 36.9 11/24/16 09:17 107 24 89/55 100 11/24/16 09:15 36.9 11/24/16 09:08 108 24 85/49 100 11/24/16 09:01 106 26 84/52 100 11/24/16 08:31 105 23 88/52 100 11/24/16 08:03 113 22 91/57 100 11/24/16 08:00 36.7 11/24/16 08:00 Nasal Cannula 2.0 11/24/16 07:31 107 27 93/56 100 11/24/16 07:01 113 31 91/61 99 11/24/16 07:00 124 37 100 11/24/16 06:39 37.1 11/24/16 06:30 111 21 95/57 100 11/24/16 06:15 110 23 93/54 100 11/24/16 06:02 103 23 73/53 99 11/24/16 05:31 99 25 82/53 98 11/24/16 05:01 98 22 84/56 91 11/24/16 04:32 103 28 85/54 95 11/24/16 04:30 36.8 101 24 85/54 99 2.0 11/24/16 04:22 108 27 89/84 93 11/24/16 04:16 108 26 95/58 96 11/24/16 04:00 100 Nasal Cannula 2.0 11/24/16 04:00 36.7 11/24/16 03:46 104 23 98/61 100 11/24/16 03:31 108 23 81/56 100 11/24/16 03:30 36.7 108 24 81/56 100 2.0 11/24/16 03:16 108 26 80/63 100 11/24/16 03:01 109 24 104/73 100 6/19/17 03:00 36.8 112 23 104/73 100 2.0 11/24/16 02:46 109 23 99/66 100 11/24/16 02:44 36.7 109 23 99/66 100 2.0 11/24/16 02:29 36.6 104 21 89/56 100 2.0 11/24/16 02:16 104 22 89/56 100 11/24/16 02:01 104 21 76/47 100 11/24/16 02:00 36.6 104 21 76/47 100 2.0 11/24/16 01:46 106 22 77/54 100 11/24/16 01:45 36.6 106 22 77/54 100 2.0 11/24/16 01:31 107 23 95/55 100 11/24/16 01:16 118 26 87/63 100 11/24/16 01:15 36.7 118 25 87/63 100 2.0 11/24/16 01:01 128 27 102/49 100 11/24/16 01:00 36.7 129 27 102/49 100 2.0 11/24/16 00:57 36.7 114 23 80/55 100 2.0 11/24/16 00:52 116 24 80/55 100 11/24/16 00:31 112 22 82/55 100 11/24/16 00:01 36.7 11/24/16 00:01 109 23 84/58 100 11/23/16 23:59 95 Nasal Cannula 2.0 11/23/16 23:31 108 18 95 Nasal Cannula 2.0 11/23/16 23:31 109 26 87/62 100 Notes Mental Status: alert / awake / arousable, participated in evaluation Pt Amnestic to Procedure: Yes Nausea / Vomiting: adequately controlled Pain: adequately controlled Airway Patency, RR, SpO2: stable & adequate BP & HR: stable & adequate Hydration State: stable & adequate Anesthetic Complications: no major complications apparent
--- NOTE | 2016-11-24 11:32 | Critical Care Progress Note ---
Critical Care Progress Note Date of Service Nov 24, 2016. ICU Day ICU Day Number: [address] Jackson Subjective Patient states that he has some improvement of his abdominal pain _ continues to have no formed stool but only "watery" diarrhea no acute events overnight - has not had Bipap on overnight Objective General: ambulatory, not in acute distress however cachectic Skin: no rashes noted, no suspicious lesions, no areas of inflammations/ lacerations/ erythema noted CVS: S1/ S2 noted, RRR, no rubs/ murmurs noted, no cyanosis RVS: not in acute respiratory distress, no wheezing/ rales/ crackles noted, decreased to bilat bases ENT: TM bilat clear, no erythema/ injection/ ulcerations noted in the pharynx, no lymphadenopathy Neck: inspection WNL, full ROM of neck ABD: BSx4, no pain/ tenderness on palpation however distended, soft MSK: inspection of all limbs WNL, motor intact in all limbs, no swelling/ pain on palpation of joints NVS: PERRL, EOMI, flat affect Lymph: No lymphadenopathy palpable Current SOFA Score SOFA Score Response (Comments) Value Platelets (x10) < 100 2 Bilirubin (mg/dL) < 1.2 0 Rudy Coma Score 15 0 Level of Hypotension No Hypotension 0 Creatinine (mg/dL) < 1.2 0 Total 2 Assessment & Plan 1. Anemia most likely from acute blood loss secondary to GI source; requiring 6 units of pRBC 2. Thrombocytopenia 3. Abdominal pain secondary to fecal impaction and ileus 4. Heme occult pos 5. Hypercapnic resp failure secondary to opioid use - resolved 6. COPD- stable 7. 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 Dysphagia and Dystonia - unchanged 9. MESFIN- resolved 10. H/O Hep C 11. Hypothyroidism NVS - Ox3 however patient has different answers for different providers - avoid opioids/ narcotics for pain control - tylenol for pain control CVS - Continues to remain tachycardic with hypotension (MAP > 65) - continue to monitor RESP NC 2.0 L and comfortable - will continue to hold BiPAP - O2 per nursing protocol ID - plan d/c zosyn after EGD, unlikely infectious in nature - continue to trend WBC GI - currently NPO for procedure - consult GI - EGD to r/o UGI source - if no improvement in KUB consider manual disimpaction - Octreotide and Pantoprazole 40 mg q5h - currently positive fluid balance - NSS @ 80 HEME - received 6 units in total 2 units are on hold - receiving 1 unit of plts - coag studies pending - GI studies pending - q6h HH - peripheral smear for worsening thrombocytopenia - PICC in place ENDO - BSG ACHS - TSH and Free T4 is decreased ( central hypothyroidism) - once patient is having orals consider addition of synthroid FEN - continue to follow, replete prn - ionized calcium DVT Prophylaxis - SCD because of acute blood loss Resident Physician Supervision Note: Dr. Martinez was resident physician during care of patient. I separately evaluated patient and did history and exam. I discussed the case with the resident and generally agree with the findings and plan. GI bleeding from upper source. Continue PPI. I have personally spent 40 minutes of critical care time in the direct management of this patient. This is a life/limb threatening event. This includes time spent evaluating patient, direct bedside care, chart review, placing orders, interpretation of diagnostic studies, discussion with consultants, patient, and family members, as well as other required patient management activities. This time is exclusive of all separately billable procedures, and teaching time and separate from and in addition to any other critical care service time. Documented By: Kumar Jackson DO Consults & Procedures Consultants: Dr Rudd- GI Procedures: EGD Data Medications: Current Inpatient Medications Medications (Trade) Dose Ordered Sig/Vera Route Start Time Stop Time Status Last Admin Dose Admin Ioversol (Optiray 320) 111 ml UD PRN IV 11/22/16 10:30 11/26/16 10:29 Acetaminophen (Tylenol Tab) 650 mg Q4H PRN PO 11/22/16 15:00 12/22/16 14:59 Future Hold Piperacillin Sod/ Tazobactam Sod (Consult) 1 ea UD PRN N/A 11/22/16 16:45 12/22/16 16:44 Piperacillin Sod/ Tazobactam Sod 4.5 gm/Dextrose 120 ml @ 30 mls/hr Q8H IV 11/23/16 00:00 12/07/16 00:00 11/24/16 07:19 30 MLS/HR Albuterol/ Ipratropium (Duoneb) 3 ml Q4R INH 11/22/16 20:00 12/22/16 19:59 11/24/16 07:29 3 ML Ondansetron HCl (Zofran Inj) 4 mg Q6H PRN IV 11/22/16 17:45 12/22/16 17:44 11/23/16 21:44 4 MG Sodium Chloride 1,000 ml @ 80 mls/hr [id number] IV 11/23/16 05:00 12/23/16 04:59 11/23/16 19:34 80 MLS/HR Acetaminophen 650 mg/Empty Bag 65 ml @ 260 mls/hr Q6H PRN IV 11/23/16 08:00 12/23/16 07:59 11/23/16 23:27 260 MLS/HR Heparin Sodium (Porcine) (Heparin 10 Unit/ ml 5 ml Flush) 5 ml PRN PRN FLUSH 11/23/16 12:30 12/23/16 12:29 Pantoprazole Sodium 40 mg/ Dextrose 100 ml @ 20 mls/hr Q5H IV 11/23/16 17:45 12/23/16 17:44 11/24/16 07:19 20 MLS/HR Octreotide Acetate 500 mcg/ Sodium Chloride 105 ml @ 10 mls/hr [id number] IV 11/23/16 19:30 12/23/16 19:29 11/24/16 04:17 10 MLS/HR Ephedrine Sulfate (EpHEDrine SULFATE INJ) 5 mg Q5M PRN IV 11/24/16 11:15 11/25/16 11:14 UNV Atropine Sulfate (Atropine Sulfate 0.1MG/Ml Inj) 0.5 mg Q1M PRN IV 11/24/16 11:15 11/25/16 11:14 UNV I & O: 24-Hour Column 11/25/16 08:00 Intake Total 286 ml Balance 286 ml Vital Signs: Date Time Temp Pulse Resp B/P (MAP) Pulse Ox O2 Delivery O2 Flow Rate FiO2 11/24/16 10:20 36.7 105 22 76/58 (64) 95 Nasal Cannula 2 11/24/16 09:56 36.6 11/24/16 09:46 106 21 93/57 100 11/24/16 09:31 101 20 89/53 100 11/24/16 09:30 36.9 11/24/16 09:17 107 24 89/55 100 11/24/16 09:15 36.9 11/24/16 09:08 108 24 85/49 100 11/24/16 09:01 106 26 84/52 100 11/24/16 08:31 105 23 88/52 100 11/24/16 08:03 113 22 91/57 100 11/24/16 08:00 36.7 11/24/16 08:00 Nasal Cannula 2.0 11/24/16 07:31 107 27 93/56 100 11/24/16 07:01 113 31 91/61 99 11/24/16 07:00 124 37 100 11/24/16 06:39 37.1 11/24/16 06:30 111 21 95/57 100 11/24/16 06:15 110 23 93/54 100 11/24/16 06:02 103 23 73/53 99 11/24/16 05:31 99 25 82/53 98 11/24/16 05:01 98 22 84/56 91 11/24/16 04:32 103 28 85/54 95 11/24/16 04:30 36.8 101 24 85/54 99 2.0 11/24/16 04:22 108 27 89/84 93 11/24/16 04:16 108 26 95/58 96 11/24/16 04:00 100 Nasal Cannula 2.0 11/24/16 04:00 36.7 11/24/16 03:46 104 23 98/61 100 11/24/16 03:31 108 23 81/56 100 11/24/16 03:30 36.7 108 24 81/56 100 2.0 11/24/16 03:16 108 26 80/63 100 11/24/16 03:01 109 24 104/73 100 11/24/16 03:00 36.8 112 23 104/73 100 2.0 11/24/16 02:46 109 23 99/66 100 11/24/16 02:44 36.7 109 23 99/66 100 2.0 11/24/16 02:29 36.6 104 21 89/56 100 2.0 11/24/16 02:16 104 22 89/56 100 11/24/16 02:01 104 21 76/47 100 11/24/16 02:00 36.6 104 21 76/47 100 2.0 11/24/16 01:46 106 22 77/54 100 11/24/16 01:45 36.6 106 22 77/54 100 2.0 11/24/16 01:31 107 23 95/55 100 11/24/16 01:16 118 26 87/63 100 11/24/16 01:15 36.7 118 25 87/63 100 2.0 11/24/16 01:01 128 27 102/49 100 11/24/16 01:00 36.7 129 27 102/49 100 2.0 11/24/16 00:57 36.7 114 23 80/55 100 2.0 11/24/16 00:52 116 24 80/55 100 11/24/16 00:31 112 22 82/55 100 11/24/16 00:01 36.7 11/24/16 00:01 109 23 84/58 100 11/23/16 23:59 95 Nasal Cannula 2.0 11/23/16 23:31 108 18 95 Nasal Cannula 2.0 11/23/16 23:31 109 26 87/62 100 11/23/16 23:02 116 25 110/63 100 11/23/16 22:31 110 26 94/63 100 11/23/16 22:01 113 23 95/57 100 11/23/16 21:31 110 28 96/59 100 11/23/16 21:02 112 22 103/57 99 11/23/16 20:31 113 24 81/56 95 1817 20:30 36.5 107 15 81/56 100 11/23/16 20:16 118 20 79/54 98 11/23/16 20:06 122 20 92/53 99 1817 20:05 36.5 122 23 92/53 98 1817 20:00 36.4 11/23/16 20:00 99 Nasal Cannula 24 11/23/16 19:35 36.5 109 28 96/56 99 11/23/16 19:32 108 96 24 11/23/17 19:32 108 18 95 BiPAP/CPAP 11/23/16 19:31 109 22 96/56 100 18 19:20 36.5 109 21 93/60 99 1817 19:16 108 21 88/59 100 11/23/16 19:16 108 21 88/59 100 11/23/16 19:15 112 23 97 11/23/16 19:15 36.5 113 23 93/60 100 11/23/16 19:02 109 32 93/60 97 11/23/16 18:46 109 19 86/60 99 11/23/16 18:31 110 20 75/49 98 11/23/16 18:16 116 24 81/42 97 11/23/16 18:09 36.8 11/23/16 18:01 120 23 75/45 96 11/23/16 17:12 125 28 88/59 11/23/16 17:09 124 25 71/52 11/23/16 16:42 36.9 11/23/16 16:00 Nasal Cannula 2.0 11/23/16 15:31 119 36 101/59 11/23/16 15:17 106 18 96 Nasal Cannula 2.0 11/23/16 15:02 118 28 107/64 11/23/16 14:31 104 29 93/57 11/23/16 14:30 37.5 11/23/16 14:03 183 30 135/62 97 11/23/16 14:00 37.4 11/23/16 13:31 105 27 105/60 11/23/16 13:01 110 27 103/60 11/23/16 13:00 37.5 11/23/16 13:00 37.5 11/23/16 12:46 111 30 105/67 11/23/16 12:31 114 34 111/60 11/23/16 12:30 37.6 11/23/16 12:23 116 36 105/66 100 11/23/16 12:12 37.5 11/23/16 12:12 113 32 108/57 11/23/16 12:00 Nasal Cannula 2.0 11/23/16 11:58 113 18 100 Nasal Cannula 2.0 Laboratory Results: Last 24 Hours Test 11/23/16 12:10 11/23/16 16:24 11/23/16 20:56 11/23/16 23:30 Bedside Glucose 121 mg/dl 136 mg/dl Hemoglobin 6.4 g/dL 9.0 g/dL Hematocrit 19.9 % 26.8 % Sodium Level 150 mmol/L 147 mmol/L Potassium Level 4.3 mmol/L 4.4 mmol/L Chloride Level 114 mmol/L 111 mmol/L Carbon Dioxide Level 32 mmol/L 28 mmol/L Anion Gap 4.0 mmol/L 8.0 mmol/L Blood Urea Nitrogen 39 mg/dl 43 mg/dl Creatinine 0.81 mg/dl 1.10 mg/dl Est Creatinine Clear Calc Drug Dose 61.8 ml/min 45.5 ml/min Estimated GFR () 102.9 77.3 Estimated GFR (Non- 88.8 66.7 BUN/Creatinine Ratio 48.4 39.4 Random Glucose 126 mg/dl 161 mg/dl Calcium Level 7.1 mg/dl 7.4 mg/dl Test 11/24/16 00:05 11/24/16 05:25 11/24/16 05:30 11/24/16 09:03 Hemoglobin 7.7 g/dL 10.3 g/dL 9.4 g/dL Hematocrit 22.7 % 30.3 % 28.1 % White Blood Count 13.90 K/uL Red Blood Count 3.30 M/uL Mean Corpuscular Volume 91.8 fL Mean Corpuscular Hemoglobin 31.2 pg Mean Corpuscular Hemoglobin Concent 34.0 g/dl Platelet Count 70 K/uL Mean Platelet Volume 12.3 fL Neutrophils (%) (Auto) 82.7 % Lymphocytes (%) (Auto) 7.6 % Monocytes (%) (Auto) 9.4 % Eosinophils (%) (Auto) 0.0 % Basophils (%) (Auto) 0.0 % Neutrophils # (Auto) 11.50 K/uL Lymphocytes # (Auto) 1.05 K/uL Monocytes # (Auto) 1.31 K/uL Eosinophils # (Auto) 0.00 K/uL Basophils # (Auto) 0.00 K/uL RDW Standard Deviation 52.0 fL RDW Coefficient of Variation 15.8 % Immature Granulocyte % (Auto) 0.3 % Immature Granulocyte # (Auto) 0.04 K/uL Nucleated RBC Absolute Count (auto) 0.37 K/uL Nucleated Red Blood Cells % 2.7 % Platelet Estimate DECREASED Red Blood Cell Morphology Unremarkable Sodium Level 146 mmol/L Potassium Level 4.7 mmol/L Chloride Level 112 mmol/L Carbon Dioxide Level 31 mmol/L Anion Gap 3.0 mmol/L Blood Urea Nitrogen 44 mg/dl Creatinine 1.20 mg/dl Est Creatinine Clear Calc Drug Dose 41.7 ml/min Estimated GFR () 69.6 Estimated GFR (Non- 60.1 BUN/Creatinine Ratio 36.3 Random Glucose 162 mg/dl Calcium Level 7.0 mg/dl Phosphorus Level 4.0 mg/dl Magnesium Level 2.3 mg/dl Total Bilirubin 0.9 mg/dl Aspartate Amino Transf (AST/SGOT) 17 U/L Alanine Aminotransferase (ALT/SGPT) 22 U/L Alkaline Phosphatase 26 U/L Total Protein 3.7 gm/dl Albumin 1.9 gm/dl Globulin 1.8 gm/dl Albumin/Globulin Ratio 1.1 Vitamin B12 Level 286 pg/mL Folate 4.97 ng/mL Thyroid Stimulating Hormone (TSH) 0.125 uIu/ml Free Thyroxine 0.64 ng/dl Bedside Glucose 162 mg/dl Prothrombin Time 13.9 SECONDS Prothromb Time International Ratio 1.3 Activated Partial Thromboplast Time 36.9 SECONDS Partial Thromboplastin Ratio 1.4 Lactic Acid Level 0.8 mmol/L Ionized Calcium 1.33 mmol/l
[2016-11-24 12:25] LABS: ISTAT ARTERIAL BLOOD GAS PCO2 < 10 mmHg (35-46); ISTAT ARTERIAL BLOOD GAS PO2 398 mmHg (80-95); ISTAT ARTERIAL BLOOD GAS pH 7.05 (7.35-7.45); ISTAT CARBON DIOXIDE < 5 mEq/l (24-31); ISTAT HEMATOCRIT 27 % (42-52); ISTAT HEMOGLOBIN 9.2 g/dl (14.0-18.0); ISTAT SODIUM 146 mEq/L (135-144)
[2016-11-24] MEDS: SODIUM CHLORIDE 0.45% 1000ML 1,000 ML IV SCH ×2 (13:52→21:40)
[2016-11-24 16:03] LABS: HEMATOCRIT 21.8 % (42-52)
[2016-11-24] MEDS: ACETAMINOPHEN IV 650 MG in EMPTY BAG 0 ML IV PRN (19:56)
[2016-11-24 22:49] LABS: HEMATOCRIT 21.6 % (42-52)
[2016-11-25] VITALS (50 sets, daily range): BP systolic 76–125; BP diastolic 40–73; PULSE 64–100; TEMP 35.9–36.8; O2SAT 79–100
[2016-11-25] MEDS: PIPERACILL/TAZOBAC IV 4.5 GM in DEXTROSE 5% 100ML IV SCH ×2 (00:10→07:50)
[2016-11-25] MEDS: PANTOprazole INJ 40 MG in DEXTROSE 5% 100ML IV SCH ×5 (01:00→23:26)
[2016-11-25] MEDS: ALBUT/IPRATROP 3MG/0.5MG NEB 3 ML VIAL INH SCH ×6 (03:30→23:26)
[2016-11-25] MEDS: SODIUM CHLORIDE 0.45% 1000ML 1,000 ML IV SCH ×2 (05:30→23:27)
[2016-11-25] MEDS: LEVOTHYROXINE 75 MCG TAB PO SCH (05:30)
[2016-11-25 06:05] LABS: HEMATOCRIT 21.4 % (42-52); MEAN CELL VOLUME 95.1 fL (80-100); MEAN CORPUSCULAR HGB CONC 33.6 g/dl (32-36); MEAN PLATELET VOLUME 10.6 fL (7.4-10.4); PLATELET COUNT 128 K/uL (130-400); RED BLOOD COUNT 2.25 M/uL (4.7-6.1); WHITE BLOOD COUNT 14.87 K/uL (4.8-10.8)
[2016-11-25 06:38] LABS: COMPLETE YES; EOS % 0.1 %; IG% 0.3 %; LYMPH % 9.4 %; MONO % 10.2 %; POLYCHROMASIA 1+
[2016-11-25 06:51] LABS: BUN/CREATININE RATIO 31.3 (10-20); CALCIUM 7.5 mg/dl (8.5-10.1); CREATININE 0.94 mg/dl (0.60-1.40); MAGNESIUM 2.3 mg/dl (1.8-2.4); POTASSIUM 4.2 mmol/L (3.5-5.1)
[2016-11-25 06:56] LABS: PHOSPHORUS 2.3 mg/dl (2.5-4.9)
[2016-11-25] MEDS: ACETAMINOPHEN IV 650 MG in EMPTY BAG 0 ML IV PRN ×2 (07:50→22:53)
[2016-11-25] MEDS: ONDANSETRON INJ 2 MG/ML 2 ML VIAL IV PRN (07:50)
--- NOTE | 2016-11-25 08:18 | DIAGNOSTIC IMAGING REPORT ---
KUB CLINICAL HISTORY: abd distention pain COMPARISON STUDY: 11/24/2016 FINDINGS: Generalized ileus. Slightly progressive compared to the prior exam. No true obstructive characteristics. No secondary signs of free air. IMPRESSION: Mildly progressive generalized nonobstructive ileus. Electronically signed by: Lui Duncan M.D. 11/25/2016 8:17 AM Dictated Date/Time: 11/25/2016 8:16 AM
[2016-11-25] MEDS ORDERED: NON-FORMULARY MEDICATION SCH (08:45)
[2016-11-25] MEDS ORDERED: NEOSTIGMINE METHYLSULFATE 2 MG in SYRINGE 8 ML IV ONE (09:00)
--- NOTE | 2016-11-25 09:37 | Gastroenterology Progress Note ---
Progress Note Date of Service: Nov 25, 2016 Subjective Pt evaluation today including: conversation w/ patient, physical exam, chart review, lab review Pt was seen and evaluated this AM. Two episodes of small anna colored stools since EGD yesterday, likely old blood. No new GI symptoms. Ileus persists - neostigmine was being pushed when we were examining. EGD 11/24/16:Tortuous esophagus. Medium-sized hiatus hernia. Gastritis. One non- obstructing non-bleeding duodenal ulcer with a visible vessel. Injected. Treated with cautery. Normal 2nd part of the duodenum and 3rd part of the duodenum. KUB 11/25/16: Generalized ileus. Slightly progressive compared to the prior exam. No true obstructive characteristics. No secondary signs of free air. Review of Systems Constitutional: No fever Respiratory: No cough, No shortness of breath Abdomen: + diarrhea, + GI bleeding Medications Current Inpatient Medications Medications (Trade) Dose Ordered Sig/Vera Route Start Time Stop Time Status Last Admin Dose Admin Ioversol (Optiray 320) 111 ml UD PRN IV 11/22/16 10:30 11/26/16 10:29 Acetaminophen (Tylenol Tab) 650 mg Q4H PRN PO 11/22/16 15:00 12/22/16 14:59 Future Hold Piperacillin Sod/ Tazobactam Sod (Consult) 1 ea UD PRN N/A 11/22/16 16:45 12/22/16 16:44 Piperacillin Sod/ Tazobactam Sod 4.5 gm/Dextrose 120 ml @ 30 mls/hr Q8H IV 11/23/16 00:00 12/07/16 00:00 11/25/16 07:50 30 MLS/HR Albuterol/ Ipratropium (Duoneb) 3 ml Q4R INH 11/22/16 20:00 12/22/16 19:59 11/25/16 07:05 3 ML Ondansetron HCl (Zofran Inj) 4 mg Q6H PRN IV 11/22/16 17:45 12/22/16 17:44 11/25/16 07:50 4 MG Sodium Chloride 1,000 ml @ 120 mls/hr Q8H20M IV 11/23/16 05:00 12/23/16 04:59 11/25/16 05:30 120 MLS/HR Acetaminophen 650 mg/Empty Bag 65 ml @ 260 mls/hr Q6H PRN IV 11/23/16 08:00 12/23/16 07:59 11/25/16 07:50 260 MLS/HR Heparin Sodium (Porcine) (Heparin 10 Unit/ ml 5 ml Flush) 5 ml PRN PRN FLUSH 11/23/16 12:30 12/23/16 12:29 Pantoprazole Sodium 40 mg/ Dextrose 100 ml @ 20 mls/hr Q5H IV 11/23/16 17:45 12/23/16 17:44 11/25/16 09:05 20 MLS/HR Levothyroxine Sodium (Synthroid Tab) 75 mcg DAILYBB PO 11/25/16 06:00 12/25/16 05:59 11/25/16 05:30 75 MCG Objective Vital Signs Date Time Temp Pulse Resp B/P (MAP) Pulse Ox O2 Delivery O2 Flow Rate FiO2 11/25/16 08:01 89 30 105/55 97 11/25/16 08:00 Nasal Cannula 2.0 11/25/16 08:00 36.7 11/25/16 07:06 98 16 91 Nasal Cannula 2.0 11/25/16 07:01 95 33 109/61 97 11/25/16 07:00 95 33 109/61 (77) 97 2.0 11/25/16 06:00 96 32 99/55 (70) 94 Nasal Cannula 2.0 11/25/16 04:00 Nasal Cannula 2.0 11/25/16 04:00 36.8 96 32 94/53 (67) 95 Nasal Cannula 2.0 11/25/16 03:30 99 16 93 Nasal Cannula 2.0 11/25/16 02:00 96 29 96/49 (65) 98 Nasal Cannula 2.0 11/25/16 00:00 Nasal Cannula 2.0 11/25/16 00:00 36.7 98 30 95/54 (68) 94 Nasal Cannula 2.0 11/24/16 23:25 89 16 100 Nasal Cannula 2.0 11/24/16 23:00 88 30 86/50 (62) 100 Nasal Cannula 2.0 11/24/16 22:00 94 32 85/47 (60) 83 Room Air 11/24/16 21:00 97 29 89/35 (53) 89 Room Air 11/24/16 20:28 89 29 82/50 (61) 97 Nasal Cannula 2.0 11/24/16 20:11 36.8 98 22 83/49 (60) 92 Room Air 11/24/16 20:00 98 22 83/49 (60) 92 Room Air 11/24/16 20:00 Nasal Cannula 2.0 11/24/16 19:14 96 18 99 Nasal Cannula 2.0 11/24/16 19:00 100 32 90/45 (60) 98 Nasal Cannula 2.0 11/24/16 18:48 96 30 90/50 26 11/24/16 18:01 97 30 86/49 99 11/24/16 17:01 36.9 11/24/16 17:01 94 29 90/49 100 11/24/16 16:03 98 29 82/48 98 11/24/16 16:01 97 30 81/47 98 11/24/16 16:00 Nasal Cannula 2.0 11/24/16 15:32 99 32 88/46 98 11/24/16 15:15 87 18 93 Nasal Cannula 2.0 11/24/16 14:47 36.9 11/24/16 14:44 98 29 90/48 91 11/24/16 14:31 102 31 86/49 95 11/24/16 14:01 100 28 89/50 97 11/24/16 13:31 99 24 87/48 100 11/24/16 13:01 93 25 88/54 100 11/24/16 12:01 96 32 104/58 98 11/24/16 12:00 36.9 11/24/16 12:00 Nasal Cannula 2.0 11/24/16 11:47 97 29 108/55 100 11/24/16 11:30 102 24 100/48 (65) 95 Nasal Cannula 6 11/24/16 11:19 105 24 97/45 (62) 95 Nasal Cannula 6 11/24/16 11:09 108 25 98/43 (61) 95 Nasal Cannula 6 11/24/16 10:20 36.7 105 22 76/58 (64) 95 Nasal Cannula 2 11/24/16 10:01 107 22 78/55 100 11/24/16 09:56 36.6 11/24/16 09:46 106 21 93/57 100 11/24/16 09:31 101 20 89/53 100 Physical Exam General Appearance: no apparent distress Eyes: PERRL ENT: hearing grossly normal Respiratory/Chest: lungs clear, normal breath sounds Cardiovascular: regular rate, rhythm, no murmur Abdomen: normal bowel sounds, non tender, soft, no organomegaly Neurologic/Psych: alert Laboratory Results Last 24 Hours Test 11/24/16 12:08 11/24/16 12:53 11/24/16 15:56 11/24/16 16:50 Peripheral Blood Smear Path Consult Free Triiodothyronine 1.12 pg/ml Bedside Glucose 122 mg/dl 114 mg/dl Hemoglobin 7.5 g/dL Hematocrit 21.8 % Test 11/24/16 22:18 11/24/16 22:43 11/25/16 03:55 11/25/16 05:45 Bedside Glucose 120 mg/dl Hemoglobin 7.1 g/dL 7.2 g/dL Hematocrit 21.6 % 21.4 % Stool Occult Blood POSITIVE White Blood Count 14.87 K/uL Red Blood Count 2.25 M/uL Mean Corpuscular Volume 95.1 fL Mean Corpuscular Hemoglobin 32.0 pg Mean Corpuscular Hemoglobin Concent 33.6 g/dl Platelet Count 128 K/uL Mean Platelet Volume 10.6 fL Neutrophils (%) (Auto) 80.0 % Lymphocytes (%) (Auto) 9.4 % Monocytes (%) (Auto) 10.2 % Eosinophils (%) (Auto) 0.1 % Basophils (%) (Auto) 0.0 % Neutrophils # (Auto) 11.90 K/uL Lymphocytes # (Auto) 1.40 K/uL Monocytes # (Auto) 1.51 K/uL Eosinophils # (Auto) 0.01 K/uL Basophils # (Auto) 0.00 K/uL RDW Standard Deviation 55.1 fL RDW Coefficient of Variation 17.0 % Immature Granulocyte % (Auto) 0.3 % Immature Granulocyte # (Auto) 0.05 K/uL Nucleated RBC Absolute Count (auto) 0.38 K/uL Nucleated Red Blood Cells % 2.6 % Polychromasia 1+ Sodium Level 146 mmol/L Potassium Level 4.2 mmol/L Chloride Level 111 mmol/L Carbon Dioxide Level 29 mmol/L Anion Gap 6.0 mmol/L Blood Urea Nitrogen 29 mg/dl Creatinine 0.94 mg/dl Est Creatinine Clear Calc Drug Dose 58.4 ml/min Estimated GFR () 93.5 Estimated GFR (Non- 80.7 BUN/Creatinine Ratio 31.3 Random Glucose 112 mg/dl Calcium Level 7.5 mg/dl Phosphorus Level 2.3 mg/dl Magnesium Level 2.3 mg/dl Total Bilirubin 0.7 mg/dl Aspartate Amino Transf (AST/SGOT) 12 U/L Alanine Aminotransferase (ALT/SGPT) 21 U/L Alkaline Phosphatase 30 U/L Total Protein 4.3 gm/dl Albumin 2.1 gm/dl Globulin 2.2 gm/dl Albumin/Globulin Ratio 1.0 Assessment and Plan Patient is a 71 year old male with history of squamous cell CA of vocal cords, GERD and hepatitis C who presented after an unresponsive episode at [facility] with reports of melena x 3 days prior to admission, ileus on admission, and development of anna colored stools requiring 6 units. Large duodenal ulcer on EGD Daily KUBs Trial of relistor tomorrow if KUB is unchanged Protonix 8 mg/hr IV by continuous infusion for 3 days. Then 40 mg twice daily for 6 weeks Then 40 mg once daily thereafter. Repeat EGD in 8 to 12 weeks H pylori with a stool study - review when available and I saw and evaluated the patient. He did have some anna stools this morning which I suspect is related to old blood within the gastrointestinal tract. Over the last 24 hours his hemoglobin and hematocrit have remained stable without further transfusion requirement. Recommendations Advance diet as tolerated Continue Protonix drip for another 48 hours Please call with any questions or concerns
[2016-11-25] MEDS ORDERED: OPTIRAY 320 IV PRN (10:00)
[2016-11-25] MEDS ORDERED: LACTATED RINGER'S 1000ML 1,000 ML IV ONE (10:00)
[2016-11-25] MEDS ORDERED: PANTOprazole INJ 40 MG in DEXTROSE 5% 100ML 100 ML IV SCH (10:45)
--- NOTE | 2016-11-25 10:51 | DIAGNOSTIC IMAGING REPORT ---
CT SCAN OF THE ABDOMEN AND PELVIS WITHOUT CONTRAST CLINICAL HISTORY: abd pain ACUTE HYPOXIA COMPARISON STUDY: CT angiography dated 11/22/2016 TECHNIQUE: CT scan of the abdomen and pelvis was performed from the lung bases to the proximal femurs. Images are reviewed in the axial, sagittal, and coronal planes. IV contrast was not administered for this examination. CT DOSE: 1518.70 mGycm FINDINGS: There is moderate artifact as the patient was scanned with his arms by his side. Lower chest: Since the prior study, the patient has developed dense left lower lobe atelectasis/consolidation. Right basal airspace opacities are felt to be atelectatic. There are small bilateral pleural effusions right greater than left. Liver: The unenhanced liver is normal in size, contour, and attenuation. There is no intrahepatic biliary ductal dilatation. Gallbladder: Mildly distended Spleen: Normal in size and attenuation. Pancreas: Unremarkable. Adrenal glands: Unremarkable. Kidneys: The unenhanced kidneys are normal in size without hydronephrosis. There is no contour deforming renal mass lesion. No renal calculi are identified. Bowel: Evaluation of the bowel is significantly limited given the lack of intravenous and oral contrast. There are no transition zones to indicate bowel obstruction. There is a large amount stool within the rectum, diminished when compared the preceding study. There is no evidence of acute appendicitis. There is no evidence of acute diverticulitis. Peritoneum: There is no intraperitoneal free air or abdominal ascites. There is a fat-containing right inguinal hernia Vasculature: The abdominal aorta is normal in course and caliber. Adenopathy: None. Pelvic viscera: There is an indwelling [place] catheter. Skeletal structures: There is diffuse body wall edema. IMPRESSION: 1. Somewhat limited study given the absence of intravenous or oral contrast 2. Diminished colonic distention with decreasing colonic stool 3. Diffuse body wall edema 4. Interval development of bilateral pleural effusions right greater than left 5. Interval development of dense left lower lobe pulmonary atelectasis/consolidation 6. Small fat-containing right inguinal hernia 7. No evidence of free air 8. Gallbladder distention Electronically signed by: Shin Ventura M.D. 11/25/2016 10:50 AM Dictated Date/Time: 11/25/2016 10:41 AM
--- NOTE | 2016-11-25 10:55 | DIAGNOSTIC IMAGING REPORT ---
CHEST CTA for PULMONARY ARTERIES CT DOSE: HISTORY: Chest pain dyspnea TECHNIQUE: Multiaxial CT images of the chest were performed following the intravenous administration of contrast to evaluate the pulmonary arteries. Maximal intensity projection images were also obtained. COMPARISON STUDY: None. FINDINGS: No evidence for main central pulmonary most. The central pulmonary vasculature enhances appropriately. There is a single filling defect of the third or vessel of the right lower lobe. This is best seen on transaxial image 90. There are findings of a small right effusion and mild right basilar atelectasis. There is debris within the right lower lobe bronchial system. The left hemithoracic pulmonary tear vasculature enhances appropriately. There are atelectatic changes of the left lower lobe. Appears to be debris within the left lower lobe pulmonary bronchial system. IMPRESSION: 1. Study is positive for a small embolus right lung base. 2. Atelectasis left lower lobe. 3.. Partial atelectasis right lower lobe. 4. Small bilateral pleural effusions. 5. Debris within the lower lobe bronchial system with secondary pulmonary atelectatic change seen bilaterally. 6. Instill note is made of multiple lower right hemithoracic rib fractures. 5. Electronically signed by: Lui Duncan M.D. 11/25/2016 10:54 AM Dictated Date/Time: 11/25/2016 10:47 AM
[2016-11-25] MEDS ORDERED: HEPARIN IV LOW DOSE NO BOLUS SCH (11:20)
--- NOTE | 2016-11-25 12:16 | DIAGNOSTIC IMAGING REPORT ---
ULTRASOUND VENOUS DOPPLER LWR EXT BILA CLINICAL HISTORY: Leg swelling. COMPARISON STUDY: No previous studies for comparison. FINDINGS: Real-time and color flow Doppler imaging were performed. Flow was seen within the femoral, popliteal and calf veins with no intraluminal thrombus demonstrated. The saphenous vein is patent. IMPRESSION: No evidence of lower extremity DVT. Electronically signed by: Shin Ventura M.D. 11/25/2016 12:14 PM Dictated Date/Time: 11/25/2016 12:14 PM
[2016-11-25 12:21] LABS: INR 1.1 (0.9-1.1); PARTIAL THROMBOPLASTIN RATIO 1.3; PROTHROMBIN TIME (PATIENT) 12.2 SECONDS (9.0-12.0)
--- NOTE | 2016-11-25 13:26 | Critical Care Progress Note ---
Critical Care Progress Note Date of Service Nov 25, 2016. ICU Day ICU Day Number: [address] Jackson Subjective Patient was c/o SOB this am when you walked into the room and ongoing abd pain. When leaving the room and watching the monitor the RR would improve. Abdominal pain is diffuse. A KUB was done and revealed ongoing ileus so neostigmine was ordered. Patient had multiple large bowel movements and started to become tachypnic and O2 sat dropped to the 70s. ABG reflected these findings so CT to r /o PE was done and a unit of pRBC and cryo was ordered. Objective General: ambulatory,cachectic, tachypneic Skin: no rashes noted, no suspicious lesions, no areas of inflammations/ lacerations/ erythema noted CVS: S1/ S2 noted, RRR,3/6 systolic murmur noted, no cyanosis RVS: mild acute respiratory distress, coarse breath sounds noted, decreased to bilat bases Neck: inspection WNL, full ROM of neck ABD: BSx4, distended abd with some guarding ( after BM distention resolved) MSK: inspection of all limbs WNL, motor intact in all limbs, no swelling/ pain on palpation of joints NVS: PERRL, EOMI, flat affect Lymph: No lymphadenopathy palpable Current SOFA Score SOFA Score Response (Comments) Value Platelets (x10) < 100 2 Bilirubin (mg/dL) < 1.2 0 Lem[place] Coma Score 15 0 Level of Hypotension No Hypotension 0 Creatinine (mg/dL) < 1.2 0 Total 2 Assessment & Plan 1. Anemia most likely from acute blood loss secondary to GI source- duodenal bulb ulcer noted; requiring 7 units of pRBC and one cryoprecipitate 2. Acute hypoxic respiratory failure most likely secondary to anxiety however patient does have a small PE on right side 3. Thrombocytopenia 4. Abdominal pain secondary to fecal impaction and ileus 5. Heme occult pos 6. Hypercapnic resp failure secondary to opioid use - resolved 7. COPD- stable 8. 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 Dysphagia and Dystonia - unchanged 10. MESFIN- resolved 11. H/O Hep C 12. Hypothyroidism 13. Hiatal Hernia 14. Right inguinal hernia 15. Bilat pleural effusion 16. Hypophosphatemia NVS - Ox3 however patient has different answers for different providers - avoid opioids/ narcotics for pain control - tylenol for pain control CVS - Continues to remain tachycardic with hypotension (MAP > 65) - continue to monitor RESP - Patient required 10 L of O2 during episode of hypoxia however was able to be weaned to RA - will continue to hold BiPAP - O2 per nursing protocol ID - d/c Zosyn - continue to trend WBC GI - clear liquid diet - consult GI - EGD- revealed duodenal bulb ulcer - Pantoprazole 40 mg q5h - one time dose of neostigmine for fecal impaction - continue miralax daily - currently positive fluid balance, however may be contributed to GI losses - NSS @ 100, received 1 L LR bolus during hypoxic episode HEME - received 7 units in total and 1 unit cryoprecipitate - 1 units are on hold - received 1 unit of plts - Heparin dripp low dose without bolus started, will trend HH q 6 h - PICC in place ENDO - BSG ACHS - TSH and Free T4 is decreased ( central hypothyroidism) - Synthroid 75 mcg daily FEN - continue to follow, replete prn - ionized calcium as received multiple transfusions DVT Prophylaxis scd and heparin drip Resident Physician Supervision Note: Dr. Martinez was resident physician during care of patient. I separately evaluated patient and did history and exam. I discussed the case with the resident and generally agree with the findings and plan. Patient remained hemodynamically stable overnight, H&H was also stable, significant ileus seen on KUB, given neostigmine, positive bowel movement and significant reduction in bowel gas is noted on CT Patient had an episode of hypoxia, ABG revealed a hypoxic hypercarbic respiratory acidosis, given the acute nature patient underwent an emergent CTA of the chest. It was noted that he had a small right lung base pulmonary embolism. Placed on low intensity heparin with no bolus given recent GI bleeding, venous duplex is negative for acute DVT. This was the patient's first CT scan of the chest comments unclear if this is a acute or chronic PE, given the peripheral nature it is unlikely to represent the reason for the patient's hypoxia, most likely reason for the hypoxia is the significant atelectasis the left lower lobe. Read on chest physiotherapy. As noted that there was infiltration of CT contrast when in initially administered, we have consult of the wound nurse and will continue to observe this area. Given the acute hypoxia while the patient was still anemic we have given him an additional unit of packed red blood cells as well as 1 unit cryoprecipitate given the 7 units he has been transfused in total to replenish coagulation factors. I have personally spent 60 minutes of critical care time in the direct management of this patient. This is a life/limb threatening event. This includes time spent evaluating patient, direct bedside care, chart review, placing orders, interpretation of diagnostic studies, discussion with consultants, patient, and family members, as well as other required patient management activities. This time is exclusive of all separately billable procedures, and teaching time and separate from and in addition to any other critical care service time. Documented By: Kumar Jackson DO Consults & Procedures Consultants: Dr Rudd- GI Procedures: EGD Data Medications: Current Inpatient Medications Medications (Trade) Dose Ordered Sig/Vera Route Start Time Stop Time Status Last Admin Dose Admin Ioversol (Optiray 320) 111 ml UD PRN IV 11/22/16 10:30 11/26/16 10:29 Acetaminophen (Tylenol Tab) 650 mg Q4H PRN PO 11/22/16 15:00 12/22/16 14:59 Future Hold Albuterol/ Ipratropium (Duoneb) 3 ml Q4R INH 11/22/16 20:00 12/22/16 19:59 11/25/16 11:06 3 ML Ondansetron HCl (Zofran Inj) 4 mg Q6H PRN IV 11/22/16 17:45 12/22/16 17:44 11/25/16 07:50 4 MG Sodium Chloride 1,000 ml @ 100 mls/hr Q10H IV 11/23/16 05:00 12/23/16 04:59 11/25/16 05:30 120 MLS/HR Acetaminophen 650 mg/Empty Bag 65 ml @ 260 mls/hr Q6H PRN IV 11/23/16 08:00 12/23/16 07:59 11/25/16 07:50 260 MLS/HR Heparin Sodium (Porcine) (Heparin 10 Unit/ ml 5 ml Flush) 5 ml PRN PRN FLUSH 11/23/16 12:30 12/23/16 12:29 Pantoprazole Sodium 40 mg/ Dextrose 100 ml @ 20 mls/hr Q5H IV 11/23/16 17:45 12/23/16 17:44 11/25/16 09:05 20 MLS/HR Levothyroxine Sodium (Synthroid Tab) 75 mcg DAILYBB PO 11/25/16 06:00 12/25/16 05:59 11/25/16 05:30 75 MCG Ioversol (Optiray 320) 125 ml UD PRN IV 11/25/16 10:00 11/29/16 09:59 Heparin Sodium/ Dextrose 500 ml @ 14 mls/hr Q24H PRN IV 11/25/16 12:00 12/25/16 11:59 Vital Signs: Date Time Temp Pulse Resp B/P (MAP) Pulse Ox O2 Delivery O2 Flow Rate FiO2 11/25/16 12:00 36.5 11/25/16 12:00 90 37 101/49 87 11/25/16 12:00 Oxymask 10.0 11/25/16 11:45 93 37 94/48 88 11/25/16 11:31 93 41 115/43 79 11/25/16 11:30 36.6 11/25/16 11:21 36.1 11/25/16 11:15 93 33 88/50 95 11/25/16 11:06 95 16 94 Room Air 11/25/16 11:05 91 33 97/44 87 11/25/16 11:01 92 26 97/44 93 11/25/16 10:57 91 25 99/52 99 11/25/16 10:50 35.9 11/25/16 10:39 99 26 96/57 97 11/25/16 10:38 36.4 11/25/16 09:39 94 44 125/59 83 11/25/16 09:31 80 37 102/49 87 11/25/16 09:25 64 39 76/40 87 11/25/16 09:18 71 38 81/43 97 11/25/16 09:15 75 26 88/48 100 11/25/16 09:01 98 33 109/49 97 11/25/16 08:01 89 30 105/55 97 11/25/16 08:00 Nasal Cannula 2.0 11/25/16 08:00 36.7 11/25/16 07:06 98 16 91 Nasal Cannula 2.0 11/25/16 07:01 95 33 109/61 97 11/25/16 07:00 95 33 109/61 (77) 97 2.0 11/25/16 06:00 96 32 99/55 (70) 94 Nasal Cannula 2.0 11/25/16 04:00 Nasal Cannula 2.0 11/25/16 04:00 36.8 96 32 94/53 (67) 95 Nasal Cannula 2.0 11/25/16 03:30 99 16 93 Nasal Cannula 2.0 11/25/16 02:00 96 29 96/49 (65) 98 Nasal Cannula 2.0 11/25/16 00:00 Nasal Cannula 2.0 11/25/16 00:00 36.7 98 30 95/54 (68) 94 Nasal Cannula 2.0 11/24/16 23:25 89 16 100 Nasal Cannula 2.0 11/24/16 23:00 88 30 86/50 (62) 100 Nasal Cannula 2.0 11/24/16 22:00 94 32 85/47 (60) 83 Room Air 11/24/16 21:00 97 29 89/35 (53) 89 Room Air 11/24/16 20:28 89 29 82/50 (61) 97 Nasal Cannula 2.0 11/24/16 20:11 36.8 98 22 83/49 (60) 92 Room Air 11/24/16 20:00 98 22 83/49 (60) 92 Room Air 11/24/16 20:00 Nasal Cannula 2.0 11/24/16 19:14 96 18 99 Nasal Cannula 2.0 11/24/16 19:00 100 32 90/45 (60) 98 Nasal Cannula 2.0 11/24/16 18:48 96 30 90/50 26 11/24/16 18:01 97 30 86/49 99 11/24/16 17:01 36.9 11/24/16 17:01 94 29 90/49 100 11/24/16 16:03 98 29 82/48 98 11/24/16 16:01 97 30 81/47 98 11/24/16 16:00 Nasal Cannula 2.0 11/24/16 15:32 99 32 88/46 98 11/24/16 15:15 87 18 93 Nasal Cannula 2.0 11/24/16 14:47 36.9 11/24/16 14:44 98 29 90/48 91 11/24/16 14:31 102 31 86/49 95 11/24/16 14:01 100 28 89/50 97 11/24/16 13:31 99 24 87/48 100 Laboratory Results: Last 24 Hours Test 11/24/16 15:56 11/24/16 16:50 11/24/16 22:18 11/24/16 22:43 Hemoglobin 7.5 g/dL 7.1 g/dL Hematocrit 21.8 % 21.6 % Bedside Glucose 114 mg/dl 120 mg/dl Test 11/25/16 03:55 11/25/16 05:45 11/25/16 11:58 Stool Occult Blood POSITIVE White Blood Count 14.87 K/uL Red Blood Count 2.25 M/uL Hemoglobin 7.2 g/dL Hematocrit 21.4 % Mean Corpuscular Volume 95.1 fL Mean Corpuscular Hemoglobin 32.0 pg Mean Corpuscular Hemoglobin Concent 33.6 g/dl Platelet Count 128 K/uL Mean Platelet Volume 10.6 fL Neutrophils (%) (Auto) 80.0 % Lymphocytes (%) (Auto) 9.4 % Monocytes (%) (Auto) 10.2 % Eosinophils (%) (Auto) 0.1 % Basophils (%) (Auto) 0.0 % Neutrophils # (Auto) 11.90 K/uL Lymphocytes # (Auto) 1.40 K/uL Monocytes # (Auto) 1.51 K/uL Eosinophils # (Auto) 0.01 K/uL Basophils # (Auto) 0.00 K/uL RDW Standard Deviation 55.1 fL RDW Coefficient of Variation 17.0 % Immature Granulocyte % (Auto) 0.3 % Immature Granulocyte # (Auto) 0.05 K/uL Nucleated RBC Absolute Count (auto) 0.38 K/uL Nucleated Red Blood Cells % 2.6 % Polychromasia 1+ Sodium Level 146 mmol/L Potassium Level 4.2 mmol/L Chloride Level 111 mmol/L Carbon Dioxide Level 29 mmol/L Anion Gap 6.0 mmol/L Blood Urea Nitrogen 29 mg/dl Creatinine 0.94 mg/dl Est Creatinine Clear Calc Drug Dose 58.4 ml/min Estimated GFR () 93.5 Estimated GFR (Non- 80.7 BUN/Creatinine Ratio 31.3 Random Glucose 112 mg/dl Calcium Level 7.5 mg/dl Phosphorus Level 2.3 mg/dl Magnesium Level 2.3 mg/dl Total Bilirubin 0.7 mg/dl Aspartate Amino Transf (AST/SGOT) 12 U/L Alanine Aminotransferase (ALT/SGPT) 21 U/L Alkaline Phosphatase 30 U/L Total Protein 4.3 gm/dl Albumin 2.1 gm/dl Globulin 2.2 gm/dl Albumin/Globulin Ratio 1.0 Prothrombin Time 12.2 SECONDS Prothromb Time International Ratio 1.1 Activated Partial Thromboplast Time 34.6 SECONDS Partial Thromboplastin Ratio 1.3
[2016-11-25] MEDS: HEPARIN 25,000 UNIT/500ML D5W 500 ML IV PRN (14:49)
[2016-11-25 15:26] LABS: HEMATOCRIT 27.6 % (42-52)
--- NOTE | 2016-11-25 17:52 | Progress Note ---
Medicine Progress Note Date & Time of Visit: Nov 25, 2016 at 17:46. Subjective patient seen resting in bed, somewhat drowsy but easily rousable with verbal commands denies pain, dyspnea, nausea given Neostigmine this AM, had significant BM- maroon CT angio revealed PE on the right lung base Objective Last 8 Hrs Date Time Temp Pulse Resp B/P (MAP) Pulse Ox O2 Delivery O2 Flow Rate FiO2 11/25/16 16:13 36.6 11/25/16 16:13 94 16 96 Mask 10.0 11/25/16 16:01 92 33 97/73 98 11/25/16 16:00 Oxymask 10.0 11/25/16 15:45 89 31 98/58 97 11/25/16 15:30 90 33 109/57 96 11/25/16 15:15 92 32 101/57 96 11/25/16 15:00 36.6 11/25/16 15:00 79 26 99/55 98 11/25/16 14:45 79 27 94/50 99 11/25/16 14:30 90 26 110/63 94 11/25/16 14:22 90 35 99/55 96 11/25/16 14:01 93 38 98/61 91 11/25/16 13:01 90 35 104/44 92 11/25/16 12:30 87 38 94/52 92 11/25/16 12:00 36.5 11/25/16 12:00 90 37 101/49 87 11/25/16 12:00 Oxymask 10.0 11/25/16 11:45 93 37 94/48 88 11/25/16 11:31 93 41 115/43 79 11/25/16 11:30 36.6 11/25/16 11:21 36.1 11/25/16 11:15 93 33 88/50 95 11/25/16 11:06 95 16 94 Room Air 11/25/16 11:05 91 33 97/44 87 11/25/16 11:01 92 26 97/44 93 11/25/16 10:57 91 25 99/52 99 11/25/16 10:50 35.9 11/25/16 10:39 99 26 96/57 97 11/25/16 10:38 36.4 Physical Exam: General- oriented x 2, not in distress, speaks in sentences with no effort Eyes- anicteric Neck- no JVD Lungs- clear breath sounds . no rales/wheezes bilaterally Heart- regular rhythm; no murmur, normal rate Abdomen- normal bowel sounds, non distended, soft, non tender Extremities- no pretibial edema, no calf tenderness Neuro- alert, oriented x 2; no gross focal neuro deficits Skin- warm & dry Laboratory Results: Last 24 Hours Test 11/24/16 22:18 11/24/16 22:43 11/25/16 03:55 11/25/16 05:45 Bedside Glucose 120 mg/dl Hemoglobin 7.1 g/dL 7.2 g/dL Hematocrit 21.6 % 21.4 % Stool Occult Blood POSITIVE White Blood Count 14.87 K/uL Red Blood Count 2.25 M/uL Mean Corpuscular Volume 95.1 fL Mean Corpuscular Hemoglobin 32.0 pg Mean Corpuscular Hemoglobin Concent 33.6 g/dl Platelet Count 128 K/uL Mean Platelet Volume 10.6 fL Neutrophils (%) (Auto) 80.0 % Lymphocytes (%) (Auto) 9.4 % Monocytes (%) (Auto) 10.2 % Eosinophils (%) (Auto) 0.1 % Basophils (%) (Auto) 0.0 % Neutrophils # (Auto) 11.90 K/uL Lymphocytes # (Auto) 1.40 K/uL Monocytes # (Auto) 1.51 K/uL Eosinophils # (Auto) 0.01 K/uL Basophils # (Auto) 0.00 K/uL RDW Standard Deviation 55.1 fL RDW Coefficient of Variation 17.0 % Immature Granulocyte % (Auto) 0.3 % Immature Granulocyte # (Auto) 0.05 K/uL Nucleated RBC Absolute Count (auto) 0.38 K/uL Nucleated Red Blood Cells % 2.6 % Polychromasia 1+ Sodium Level 146 mmol/L Potassium Level 4.2 mmol/L Chloride Level 111 mmol/L Carbon Dioxide Level 29 mmol/L Anion Gap 6.0 mmol/L Blood Urea Nitrogen 29 mg/dl Creatinine 0.94 mg/dl Est Creatinine Clear Calc Drug Dose 58.4 ml/min Estimated GFR () 93.5 Estimated GFR (Non- 80.7 BUN/Creatinine Ratio 31.3 Random Glucose 112 mg/dl Calcium Level 7.5 mg/dl Phosphorus Level 2.3 mg/dl Magnesium Level 2.3 mg/dl Total Bilirubin 0.7 mg/dl Aspartate Amino Transf (AST/SGOT) 12 U/L Alanine Aminotransferase (ALT/SGPT) 21 U/L Alkaline Phosphatase 30 U/L Total Protein 4.3 gm/dl Albumin 2.1 gm/dl Globulin 2.2 gm/dl Albumin/Globulin Ratio 1.0 Test 11/25/16 11:58 11/25/16 15:19 Prothrombin Time 12.2 SECONDS Prothromb Time International Ratio 1.1 Activated Partial Thromboplast Time 34.6 SECONDS Partial Thromboplastin Ratio 1.3 Hemoglobin 9.0 g/dL Hematocrit 27.6 % Assessment & Plan 71 year old male with history of GERD, Laryngeal CA , Hep C presenting with low Hg. UPPER GI BLEED LIKELY FROM DUODENAL ULCER - s/p EGD: (+) duodenal ulcer, cauterized - received total of 7 units pRBC monitor Hg - Protonix drip - clear liquid diet ACUTE BLOOD LOSS ANEMIA - received total of 7 units pRBC monitor Hg - also received Cryoprecipitate THROMBOCYTOPENIA - 1 unit plateletpharesis ordered - Plt improving ILEUS - (+) BM after Neostigmine RIGHT LUNG BASE PE - started on Heparin monitor Hg POSSIBLE SEPSIS Lactate 4 on admission -- afebrile, WBC slightly increased -- blood and urine cultures negative so far -- Zosyn discontinued ACUTE HYPERCAPNEIC RESPIRATORY FAILURE -- likely from narcotics -- off bipap -- CXR: emphysematous change nd CT angio unrevealing on Nebs Solumedrol discontinued monitor HYPERNATREMIA resolving after 1/2 NSS DVT PROPHYLAXIS on Heparin drip Current Inpatient Medications: Current Inpatient Medications Medications (Trade) Dose Ordered Sig/Vera Route Start Time Stop Time Status Last Admin Dose Admin Ioversol (Optiray 320) 111 ml UD PRN IV 11/22/16 10:30 11/26/16 10:29 Acetaminophen (Tylenol Tab) 650 mg Q4H PRN PO 11/22/16 15:00 12/22/16 14:59 Future Hold Albuterol/ Ipratropium (Duoneb) 3 ml Q4R INH 11/22/16 20:00 12/22/16 19:59 11/25/16 16:13 3 ML Ondansetron HCl (Zofran Inj) 4 mg Q6H PRN IV 11/22/16 17:45 12/22/16 17:44 11/25/16 07:50 4 MG Sodium Chloride 1,000 ml @ 100 mls/hr Q10H IV 11/23/16 05:00 12/23/16 04:59 11/25/16 05:30 120 MLS/HR Acetaminophen 650 mg/Empty Bag 65 ml @ 260 mls/hr Q6H PRN IV 11/23/16 08:00 12/23/16 07:59 11/25/16 07:50 260 MLS/HR Heparin Sodium (Porcine) (Heparin 10 Unit/ ml 5 ml Flush) 5 ml PRN PRN FLUSH 11/23/16 12:30 12/23/16 12:29 Pantoprazole Sodium 40 mg/ Dextrose 100 ml @ 20 mls/hr Q5H IV 11/23/16 17:45 12/23/16 17:44 11/25/16 09:05 20 MLS/HR Levothyroxine Sodium (Synthroid Tab) 75 mcg DAILYBB PO 11/25/16 06:00 12/25/16 05:59 11/25/16 05:30 75 MCG Ioversol (Optiray 320) 125 ml UD PRN IV 11/25/16 10:00 11/29/16 09:59 Heparin Sodium/ Dextrose 500 ml @ 14 mls/hr Q24H PRN IV 11/25/16 12:00 12/25/16 11:59 11/25/16 14:49 14 MLS/HR Polyethylene (Miralax Powder Packet) 17 gm DAILY PO 11/26/16 09:00 12/26/16 08:59
[2016-11-25 21:31] LABS: PARTIAL THROMBOPLASTIN RATIO 2.1
[2016-11-26] VITALS (33 sets, daily range): BP systolic 86–125; BP diastolic 48–84; PULSE 80–122; TEMP 36.4–37; O2SAT 84–100
[2016-11-26 02:08] LABS: HEMATOCRIT 28.4 % (42-52)
[2016-11-26 02:09] LABS: IPAP 15; ISTAT ALLEN TEST Pass; ISTAT ARTERIAL BLOOD GAS HCO3 32 meq/L (19-24); ISTAT ARTERIAL BLOOD GAS PCO2 95 mmHg (35-46); ISTAT ARTERIAL BLOOD GAS PO2 93 mmHg (80-95); ISTAT ARTERIAL BLOOD GAS pH 7.13 (7.35-7.45); ISTAT CARBON DIOXIDE 35 mEq/l (24-31); ISTAT DELIVERY SYSTEM BIPAP; ISTAT FIO2 70 %; ISTAT RATE 12; ISTAT SITE R Radial
[2016-11-26 02:37] LABS: HEMATOCRIT 27.1 % (42-52); MEAN CELL VOLUME 96.1 fL (80-100); MEAN CORPUSCULAR HEMOGLOBIN 31.6 pg (25-34); PLATELET COUNT 120 K/uL (130-400); RED BLOOD COUNT 2.82 M/uL (4.7-6.1); WHITE BLOOD COUNT 15.89 K/uL (4.8-10.8)
[2016-11-26 02:52] LABS: PARTIAL THROMBOPLASTIN RATIO 2.7
[2016-11-26 03:02] LABS: MEAN CORPUSCULAR HGB CONC 32.8 g/dl (32-36)
[2016-11-26 03:18] LABS: BUN/CREATININE RATIO 23.4 (10-20); CALCIUM 7.2 mg/dl (8.5-10.1); CREATININE 0.61 mg/dl (0.60-1.40); MAGNESIUM 2.3 mg/dl (1.8-2.4); PHOSPHORUS 2.5 mg/dl (2.5-4.9)
[2016-11-26] MEDS: ALBUT/IPRATROP 3MG/0.5MG NEB 3 ML VIAL INH SCH (03:43)
[2016-11-26 03:52] LABS: VEN BLD GAS O2 SATURATION 70.3 %; VEN BLOOD GAS BASE EXCESS 4.5 mmol/L
[2016-11-26] MEDS: PANTOprazole INJ 40 MG in DEXTROSE 5% 100ML IV SCH (04:22)
[2016-11-26] MEDS: LEVOTHYROXINE 75 MCG TAB PO SCH (04:27)
[2016-11-26] MEDS ORDERED: RAPID SEQUENCE INDUCTION BAG ONE (06:18)
[2016-11-26] MEDS ORDERED: PROPOFOL IV EMULSION 10 MG/ML 100 ML VIAL IV SCH (06:41)
[2016-11-26] MEDS ORDERED: PROPOFOL IV EMULSION 10 MG/ML 100 ML VIAL IV ONE (06:43)
--- NOTE | 2016-11-26 06:51 | Procedure Note ---
Procedure Note Date of Service Nov 26, 2016. (Carroll Dominguez MD) 11/26/16 06:30am (Torres Swanson M.D.) Procedure Note Procedure: Endotracheal Intubation Indication: Acute Hypoxemic Hypercapnic Respiratory Failure Performed by: Dr. Carroll Dominguez MD, PGY2 Family Medicine [place]ucker: Dr. Robbin Swanson MD, ER Attending Procedure: The procedure was performed under urgent conditions and as such consent could not be obtained from the patient. The patient was placed in a supine position. Patient was pre-medicated with 50 mcg Fentanyl, 2.5 mg Versed and 150 of Succinylcholine. Once the patient was sedated, the oropharynx was suctioned. A Glidescope was inserted past the tongue and vocal cords were in full view. A 7.5 ET tube was passed through the cords and stylet was removed. The ET was secured to depth of 27 cm. Breath sounds were auscultated bilaterally. The patient was subsequently placed on mechanical ventilation. The patient tolerated the procedure without difficulty. A chest x-ray to confirm correct positioning is pending at this time. Complications: None (Carroll Dominguez MD) Resident Physician Supervision of Procedure Note: Dr. Carroll Dominguez was resident physician during the intubation of this patient. He intubated patient with Glidescope under my direct supervision with me at his side. He intubated patient without difficulty on first attempt. Confirmed with color change, bilateral breath sounds and stable O2. CXR with ET Tube in good position. Documented By: Torres Swanson MD (Torres Swanson M.D.)
[2016-11-26] MEDS: SODIUM CHLORIDE 0.45% 1000ML 1,000 ML IV SCH (07:01)
--- NOTE | 2016-11-26 07:14 | DIAGNOSTIC IMAGING REPORT ---
SINGLE VIEW CHEST CLINICAL HISTORY: Respiratory failure with intubation. FINDINGS: An AP, portable, upright chest radiograph is compared to study dated 11/24/2016 and correlated with chest CT dated 11/25/2016. The examination is degraded by portable technique and patient rotation. An endotracheal tube has been placed. The tip of the catheter projects 2.3 cm above the skyler. The heart is top normal for projection and there is atherosclerotic calcification of the thoracic aorta. There are small to moderate pleural effusions with bibasilar consolidation. This is similar to yesterday. No pneumothorax is seen. The skeletal structures are osteopenic. Right-sided rib fractures are again noted. IMPRESSION: 1. An endotracheal tube has been placed. The tip of the catheter projects 2.3 cm above the skyler. 2. Pleural effusions with bibasilar consolidation which could represent atelectasis and/or developing pneumonia. This is similar to yesterday's CT scan. 3. Right-sided rib fractures are again noted. Electronically signed by: Olegario Coffey M.D. 11/26/2016 7:13 AM Dictated Date/Time: 11/26/2016 7:11 AM
--- NOTE | 2016-11-26 07:29 | DIAGNOSTIC IMAGING REPORT ---
KUB CLINICAL HISTORY: eval ileus ileus COMPARISON STUDY: 11/25/2016 FINDINGS: Generalized ileus mildly improved from the prior study. No significant current colonic or small bowel distention. No secondary signs of free air. Moderate artifact due to respiratory motion. IMPRESSION: Generalized nonobstructive ileus. Slight improvement from the prior day. Electronically signed by: Lui Duncan M.D. 11/26/2016 7:28 AM Dictated Date/Time: 11/26/2016 7:13 AM
--- NOTE | 2016-11-26 07:31 | Procedure Note ---
Procedure Note Date of Service Nov 26, 2016. Procedure Note Procedure date: 11/26/16 Procedure: fiberoptic bronchoscopy Pre-procedure Diagnosis: Hypoxic respiratory failure, left lower lobe atelectasis Post-procedure Diagnosis: same as above Prior to Procedure: Informed Consent: The risks, benefits, indications, potential complications, and alternatives were not explained to the patient/family and informed consent obtained. Emergent consent implied Attending Staff: Lindsey Jackson DO Resident/APC: Dorothy Beck Skin Prep: Not applicable Anesthesia: Propofol and 1% lidocaine: 10 ML's Indications: Patient had hypoxic, hypercarbic respiratory failure requiring emergent intubation. The identity of the patient was confirmed and a bedside time out was performed. Description of Procedure: Fiberoptic bronchoscopy was performed via endotracheal tube. Bronchioalveolar lavage was performed. Findings included: Extensive mucopurulent secretions in both the right and left lobes. Significant tenacious secretions in the left lower lobe, washings obtained from the left lower lobe. Extensive mucopurulent secretions extending into the right lower lobe, washings obtained from right lower lobe Complications: None Specimens: Bronchial washings sent for culture and Gram stain, cytology, fungal elements, and AFB stain and culture. Estimated blood loss: Zero
--- NOTE | 2016-11-26 07:50 | Gastroenterology Progress Note ---
Progress Note Date of Service: Nov 26, 2016 Subjective Pt evaluation today including: physical exam, chart review, lab review S/P neostigmine for persistent ileus on 11/25/16 resulted in large BMs. Later became tachypnic w/ sats in the 70s, CT w/ PE started on heparin gtt, sats did not improve despite increased O2 and bipap --> intubated last night. Plan is to start trickle feed by coresafe while intubated. Pt evaluated this AM. Abdomen is soft, non-distended with good bowel sounds. ROS not obtained. KUB 11/26/16: Generalized ileus mildly improved from the prior study. No significant current colonic or small bowel distention. No secondary signs of free air. Moderate artifact due to respiratory motion. Medications Current Inpatient Medications Medications (Trade) Dose Ordered Sig/Vera Route Start Time Stop Time Status Last Admin Dose Admin Ioversol (Optiray 320) 111 ml UD PRN IV 11/22/16 10:30 11/26/16 10:29 Acetaminophen (Tylenol Tab) 650 mg Q4H PRN PO 11/22/16 15:00 12/22/16 14:59 Future Hold Albuterol/ Ipratropium (Duoneb) 3 ml Q4R INH 11/22/16 20:00 12/22/16 19:59 11/26/16 03:43 3 ML Ondansetron HCl (Zofran Inj) 4 mg Q6H PRN IV 11/22/16 17:45 12/22/16 17:44 11/25/16 07:50 4 MG Sodium Chloride 1,000 ml @ 100 mls/hr Q10H IV 11/23/16 05:00 12/23/16 04:59 11/25/16 23:27 100 MLS/HR Acetaminophen 650 mg/Empty Bag 65 ml @ 260 mls/hr Q6H PRN IV 11/23/16 08:00 12/23/16 07:59 11/25/16 22:53 260 MLS/HR Heparin Sodium (Porcine) (Heparin 10 Unit/ ml 5 ml Flush) 5 ml PRN PRN FLUSH 11/23/16 12:30 12/23/16 12:29 Pantoprazole Sodium 40 mg/ Dextrose 100 ml @ 20 mls/hr Q5H IV 11/23/16 17:45 12/23/16 17:44 11/26/16 04:22 20 MLS/HR Levothyroxine Sodium (Synthroid Tab) 75 mcg DAILYBB PO 11/25/16 06:00 12/25/16 05:59 11/25/16 05:30 75 MCG Ioversol (Optiray 320) 125 ml UD PRN IV 11/25/16 10:00 11/29/16 09:59 Heparin Sodium/ Dextrose 500 ml @ 14 mls/hr Q24H PRN IV 11/25/16 12:00 12/25/16 11:59 11/25/16 14:49 14 MLS/HR Polyethylene (Miralax Powder Packet) 17 gm DAILY PO 11/26/16 09:00 12/26/16 08:59 Propofol (Diprivan Iv Emulsion 100ml Vial) 1 dose UD STAT IV 11/26/16 06:41 11/26/16 06:42 UNV Objective Vital Signs Date Time Temp Pulse Resp B/P (MAP) Pulse Ox O2 Delivery O2 Flow Rate FiO2 11/26/16 07:15 109 9 111/84 (93) 100 11/26/16 07:12 107 6 105/70 (82) 100 11/26/16 07:11 98 4 91/66 (74) 97 11/26/16 07:10 105 3 100 11/26/16 07:05 103 14 117/77 (90) 100 11/26/16 07:00 109 12 125/81 (96) 99 11/26/16 06:55 104 20 93/66 (75) 100 11/26/16 06:53 100 11/26/16 06:50 109 20 98/71 (80) 100 11/26/16 06:45 104 8 90/62 (71) 84 11/26/16 06:40 122 16 105/68 (80) 99 11/26/16 06:35 94 6 106/59 (75) 99 11/26/16 06:30 98 43 91/64 (73) 94 11/26/16 06:00 88 18 116/65 (82) 94 BiPAP 40 11/26/16 05:18 84 98 50 11/26/16 04:00 36.4 83 18 111/65 (80) 98 BiPAP 50 11/26/16 04:00 98 BiPAP 50 11/26/16 03:44 80 99 60 11/26/16 03:43 80 20 99 BiPAP/CPAP 60 11/26/16 02:02 85 98 70 11/26/16 02:00 86 24 97/60 (72) 96 BiPAP 11/26/16 00:00 36.6 92 27 98/48 (65) 100 Nasal Cannula 4.0 11/25/16 23:59 98 Nasal Cannula 3.0 11/25/16 23:26 100 24 98 Nasal Cannula 3.0 11/25/16 22:00 99 38 114/52 (72) 93 Nasal Cannula 4.0 11/25/16 20:00 97 34 108/60 94 11/25/16 20:00 36.4 97 34 108/60 (76) 94 4.0 11/25/16 20:00 Oxymask 4.0 11/25/16 19:00 96 35 109/61 98 11/25/16 18:55 95 20 95 Mask 4.0 11/25/16 18:16 36.6 11/25/16 18:00 92 34 103/58 95 11/25/16 17:00 91 35 99/56 96 11/25/16 16:13 36.6 11/25/16 16:13 94 16 96 Mask 10.0 11/25/16 16:01 92 33 97/73 98 11/25/16 16:00 Oxymask 10.0 11/25/16 15:45 89 31 98/58 97 11/25/16 15:30 90 33 109/57 96 11/25/16 15:15 92 32 101/57 96 11/25/16 15:00 36.6 11/25/16 15:00 79 26 99/55 98 11/25/16 14:45 79 27 94/50 99 11/25/16 14:30 90 26 110/63 94 11/25/16 14:22 90 35 99/55 96 11/25/16 14:01 93 38 98/61 91 11/25/16 13:01 90 35 104/44 92 11/25/16 12:30 87 38 94/52 92 11/25/16 12:00 36.5 11/25/16 12:00 90 37 101/49 87 11/25/16 12:00 Oxymask 10.0 11/25/16 11:45 93 37 94/48 88 11/25/16 11:31 93 41 115/43 79 11/25/16 11:30 36.6 11/25/16 11:21 36.1 11/25/16 11:15 93 33 88/50 95 11/25/16 11:06 95 16 94 Room Air 11/25/16 11:05 91 33 97/44 87 11/25/16 11:01 92 26 97/44 93 11/25/16 10:57 91 25 99/52 99 11/25/16 10:50 35.9 11/25/16 10:39 99 26 96/57 97 11/25/16 10:38 36.4 11/25/16 09:39 94 44 125/59 83 11/25/16 09:31 80 37 102/49 87 11/25/16 09:25 64 39 76/40 87 11/25/16 09:18 71 38 81/43 97 11/25/16 09:15 75 26 88/48 100 11/25/16 09:01 98 33 109/49 97 11/25/16 08:01 89 30 105/55 97 11/25/16 08:00 Nasal Cannula 2.0 11/25/16 08:00 36.7 Physical Exam General Appearance: no apparent distress, + pertinent finding (intubated) Respiratory/Chest: + rhonchi, + pertinent finding (intubated) Cardiovascular: regular rate, rhythm Abdomen: normal bowel sounds, non tender, soft, no organomegaly Skin: normal color, warm/dry Laboratory Results Last 24 Hours Test 11/25/16 11:58 11/25/16 15:19 11/25/16 19:32 11/25/16 21:07 Prothrombin Time 12.2 SECONDS Prothromb Time International Ratio 1.1 Activated Partial Thromboplast Time 34.6 SECONDS 53.9 SECONDS Partial Thromboplastin Ratio 1.3 2.1 Hemoglobin 9.0 g/dL 9.3 g/dL Hematocrit 27.6 % 30.0 % Test 11/26/16 01:47 11/26/16 01:55 11/26/16 02:24 11/26/16 03:30 Hemoglobin 9.3 g/dL 8.9 g/dL Hematocrit 28.4 % 27.1 % Blood Gas Sample Site R Radial Bedside Blood Gas pH (LAB) 7.13 Bedside Blood Gas pCO2 (LAB) 95 mmHg Bedside Blood Gas pO2 (LAB) 93 mmHg Bedside Blood Gas HCO3 (LAB) 32 meq/L Bedside Blood Gas Total CO2 35 mEq/l Bedside Blood Gas Base Excess (LAB) 2.0 meq/L Bedside Blood Gas O2 Saturation 94.0 % Jordi Test Pass Oxygen Delivery Device BIPAP Bedside Oxygen Rate (breaths/min) 12 Bedside FiO2 70 % Blood Gas IPAP 15 White Blood Count 15.89 K/uL Red Blood Count 2.82 M/uL Mean Corpuscular Volume 96.1 fL Mean Corpuscular Hemoglobin 31.6 pg Mean Corpuscular Hemoglobin Concent 32.8 g/dl RDW Standard Deviation 54.5 fL RDW Coefficient of Variation 16.2 % Platelet Count 120 K/uL Mean Platelet Volume 11.0 fL Nucleated RBC Absolute Count (auto) 0.45 K/uL Nucleated Red Blood Cells % 2.8 % Activated Partial Thromboplast Time 68.9 SECONDS Partial Thromboplastin Ratio 2.7 Sodium Level 146 mmol/L Potassium Level 4.0 mmol/L Chloride Level 109 mmol/L Carbon Dioxide Level 34 mmol/L Anion Gap 3.0 mmol/L Blood Urea Nitrogen 14 mg/dl Creatinine 0.61 mg/dl Est Creatinine Clear Calc Drug Dose 90.0 ml/min Estimated GFR () 115.6 Estimated GFR (Non- 99.8 BUN/Creatinine Ratio 23.4 Random Glucose 114 mg/dl Calcium Level 7.2 mg/dl Phosphorus Level 2.5 mg/dl Magnesium Level 2.3 mg/dl Venous Blood pH 7.16 Venous Blood Partial Pressure CO2 97 mmHg Venous Blood Partial Pressure O2 38 mmHg Venous Blood HCO3 34 mmol/L Venous Blood Oxygen Saturation 70.3 % Venous Blood Base Excess 4.5 mmol/L Test 11/26/16 07:31 Assessment and Plan Patient is a 71 year old male with history of squamous cell CA of vocal cords, GERD and hepatitis C who presented after an unresponsive episode at [facility] with reports of melena x 3 days prior to admission, ileus on admission, and development of anna colored stools requiring 6 units. Large duodenal ulcer on EGD Daily KUBs - today KUB is improved Trial of relistor if needed Protonix 8 mg/hr IV by continuous infusion for 3 days. Then 40 mg twice daily for 6 weeks Then 40 mg once daily thereafter. Repeat EGD in 8 to 12 weeks H pylori with a stool study - review when available Trend H&H Transfuse PRN GI is ok to start feedings. GI will follow - please call with any questions or concerns. I saw and evaluated the patient. Yesterday after hypoxic episode following a dosage of Neostigmine given by the ICU for question of an ileus. It appears that there is no evidence recurrent bleeding at this time. Recommendations Transition Protonix to 40 mg twice daily for 6 weeks then 1 time daily Continue Carafate twice daily for another 4 weeks May use nasogastric feedings Please call with any questions or concerns
[2016-11-26 08:09] LABS: HEMATOCRIT 30.3 % (42-52)
[2016-11-26] MEDS: POLYETHYLENE (MIRALAX) 17 GM PACK PO SCH (09:00)
[2016-11-26] MEDS ORDERED: PEPTAMEN INTENSE VHP 1000ML BAG OG SCH (09:30)
--- NOTE | 2016-11-26 10:17 | DIAGNOSTIC IMAGING REPORT ---
ADDENDUM ADDENDUM: The enteric tube projects over the right lateral lung base, consistent with an intrapulmonary location. A subsequent chest x-ray shows that this has been repositioned. Electronically signed by: Olegario Coffey M.D. 11/26/2016 10:33 AM Dictated Date/Time: 11/26/2016 10:32 AM ORIGINAL REPORT SINGLE VIEW CHEST CLINICAL HISTORY: Enteric tube placement. FINDINGS: An AP, portable, upright chest radiograph is compared to study performed are the same day 11/26/2016 and correlated with chest CT dated 11/25/2016. The examination is degraded by portable technique and patient rotation. An endotracheal tube and a left PICC line are unchanged in position. An enteric tube is not identified. The heart is top normal for projection and there is atherosclerotic calcification of the thoracic aorta. There are small pleural effusions with bibasilar consolidation. No pneumothorax is seen. The skeletal structures are osteopenic. Right-sided rib fractures are again noted. IMPRESSION: 1. An enteric tube is not identified. 2. Pleural effusions with bibasilar consolidation which could represent atelectasis and/or developing pneumonia. These are unchanged to slightly decreased in size from earlier today. 3. Right-sided rib fractures are again noted. Electronically signed by: Olegario Coffey M.D. 11/26/2016 10:15 AM Dictated Date/Time: 11/26/2016 10:12 AM
--- NOTE | 2016-11-26 10:33 | DIAGNOSTIC IMAGING REPORT ---
CHEST ONE VIEW PORTABLE HISTORY: Tube placement. COMPARISON: Chest 11/26/2016. FINDINGS: Endotracheal tube terminates 4 cm from the skyler. Feeding tube terminates in the proximal stomach. Left PICC terminates in the distal SVC. Punctate calcific granuloma within the right midlung zone. No pneumothorax. Old right-sided rib fractures. Patchy bilateral lower lobe airspace opacities, unchanged. Trace bilateral pleural effusions. The heart is normal in size. IMPRESSION: 1. Feeding tube is seen within the proximal stomach. 2. Patchy bibasilar airspace opacities and trace bilateral pleural effusions persist. Electronically signed by: Eugenio Otto M.D. 11/26/2016 10:32 AM Dictated Date/Time: 11/26/2016 10:28 AM
[2016-11-26] MEDS: PANTOprazole INJ 40 MG in SYRINGE 0 ML IV SCH ×2 (10:36→19:42)
[2016-11-26] MEDS: AMPICILLIN/SULBACTAM SOD INJ 1,500 MG in SODIUM CHLORIDE 0.9% 100ML 100 ML IV SCH ×3 (10:38→19:41)
[2016-11-26] MEDS ORDERED: MIDAZOLAM HCL 1 MG/ML 2ML VIAL IV PRN (10:45)
[2016-11-26] MEDS ORDERED: FENTANYL CITRATE INJ 50 MCG/1 ML 2 ML VIAL IV PRN (10:45)
[2016-11-26] MEDS ORDERED: VANCOMYCIN INJ 1,200 MG in SODIUM CHLORIDE 0.9% 250ML 250 ML IV ONE (11:00)
--- NOTE | 2016-11-26 11:06 | Critical Care Progress Note ---
Critical Care Progress Note Date of Service Nov 26, 2016. ICU Day ICU Day Number: [address] Jackson Subjective Patient was having increasing oxygen requirements overnight and requiring BiPAP. [facility] was contacted and intubation was completed by ED physician. A bronchoscopy was performed and revealed thick mucus and friable lung tissue. Samples were sent for analysis Patient is currently intubated and no ability to complete a ROS Objective General:cachectic, currently intubated Skin: no rashes noted, no suspicious lesions, no areas of inflammations/ lacerations/ erythema noted CVS: S1/ S2 noted, RRR,3/6 systolic murmur noted, no cyanosis RVS: Moderate acute respiratory distress prior to intubation, coarse breath sounds noted, decreased to bilat bases Neck: inspection WNL, full ROM of neck ABD: BSx4, distention has improved and abd is now soft MSK: inspection of all limbs WNL, no swelling/ pain on palpation of joints NVS: PERRL, currently under sedation Lymph: No lymphadenopathy palpable Current SOFA Score SOFA Score Response (Comments) Value Platelets (x10) < 100 2 Bilirubin (mg/dL) < 1.2 0 Ragland Coma Score 15 0 Level of Hypotension No Hypotension 0 Creatinine (mg/dL) < 1.2 0 Total 2 Assessment & Plan 1. Anemia most likely from acute blood loss secondary to GI source- duodenal bulb ulcer noted; requiring 7 units of pRBC and one cryoprecipitate 2. Acute hypoxic respiratory failure- unlikely secondary to the small pulmonary embolism, PNA vs atelectasis 3. Thrombocytopenia 4. Abdominal pain secondary to fecal impaction and ileus 5. Heme occult pos 6. Hypercapnic resp failure secondary to opioid use - resolved 7. COPD- stable 8. 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 Dysphagia and Dystonia - unchanged 10. MESFIN- resolved 11. H/O Hep C 12. Hypothyroidism 13. Hiatal Hernia 14. Right inguinal hernia 15. Bilat pleural effusion 16. Hypophosphatemia NVS - currently under sedation with fentanyl and versed - avoid opioids/ narcotics for pain control - tylenol for pain control CVS - continue to monitor RESP - r 18/ tv 450/ PEEP 10/ FIO2 40 - plan to attempt wean today if ABG improving ID - Unasyn Vanco and doxy started to cover for aspiration pna and possible H Pylori - continue to trend WBC GI - Coresafe in place, will touch base with GI and if ok will start trickle feed with Peptamen intense - - EGD revealed duodenal bulb ulcer - Pantoprazole 40 mg changed to bolus - continue miralax daily once PO - 1/2 NSS with 20 K @ 100 HEME - received 7 units in total and 1 unit cryoprecipitate - 2 units are on hold - received 1 unit of plts - Heparin drip low dose without bolus started, will trend HH bid now as has been stable - PICC in place ENDO - BSG ACHS - TSH and Free T4 is decreased ( central hypothyroidism) - Synthroid 75 mcg daily FEN - continue to follow, replete prn DVT Prophylaxis scd and heparin drip Resident Physician Supervision Note: Dr. Martinez was resident physician during care of patient. I separately evaluated patient and did history and exam. I discussed the case with the resident and generally agree with the findings and plan. Patient required emergent intubation for hypoxic respiratory failure, please see emergent bronchoscopy report for additional findings. Started on vancomycin and Unasyn for possible aspiration pneumonia, added doxycycline 100 mg twice a day for possible H. pylori. If H. pylori is positive we will treat for a total of 14 days, if BAL is solely positive for pneumonia we will treat for anticipated for 7 days, otherwise would de-escalate once BAL result and H. pylori toxin test her back Inserted smallbore feeding tube trickle Peptamen will increase to goal H&H stable scale testing back to twice a day. Maintain heparin infusion. I have personally spent 50 minutes of critical care time in the direct management of this patient. This is a life/limb threatening event. This includes time spent evaluating patient, direct bedside care, chart review, placing orders, interpretation of diagnostic studies, discussion with consultants, patient, and family members, as well as other required patient management activities. This time is exclusive of all separately billable procedures, and teaching time and separate from and in addition to any other critical care service time. Documented By: Kumar Jackson DO Consults & Procedures Consultants: Dr Rudd- GI Procedures: EGD Intubation 11/26/2016 with bronchoscopy Data Medications: Current Inpatient Medications Medications (Trade) Dose Ordered Sig/Vera Route Start Time Stop Time Status Last Admin Dose Admin Acetaminophen (Tylenol Tab) 650 mg Q4H PRN PO 11/22/16 15:00 12/22/16 14:59 Future Hold Ondansetron HCl (Zofran Inj) 4 mg Q6H PRN IV 11/22/16 17:45 12/22/16 17:44 11/25/16 07:50 4 MG Sodium Chloride 1,000 ml @ 100 mls/hr Q10H IV 11/23/16 05:00 12/23/16 04:59 Future Hold 11/25/16 23:27 100 MLS/HR Acetaminophen 650 mg/Empty Bag 65 ml @ 260 mls/hr Q6H PRN IV 11/23/16 08:00 12/23/16 07:59 11/25/16 22:53 260 MLS/HR Heparin Sodium (Porcine) (Heparin 10 Unit/ ml 5 ml Flush) 5 ml PRN PRN FLUSH 11/23/16 12:30 12/23/16 12:29 Levothyroxine Sodium (Synthroid Tab) 75 mcg DAILYBB PO 11/25/16 06:00 12/25/16 05:59 11/25/16 05:30 75 MCG Ioversol (Optiray 320) 125 ml UD PRN IV 11/25/16 10:00 11/29/16 09:59 Heparin Sodium/ Dextrose 500 ml @ 14 mls/hr Q24H PRN IV 11/25/16 12:00 12/25/16 11:59 11/25/16 14:49 14 MLS/HR Polyethylene (Miralax Powder Packet) 17 gm DAILY PO 11/26/16 09:00 12/26/16 08:59 Propofol (Diprivan Iv Emulsion 100ml Vial) 1 dose UD IV 11/26/16 06:41 11/29/16 06:40 Vancomycin HCl 1200 mg/Sodium Chloride 274 ml @ 125 mls/hr TODAY@1100 ONCE IV 11/26/16 11:00 11/26/16 13:11 Ampicillin Sodium/ Sulbactam Sodium 1500 mg/Sodium Chloride 104 ml @ 200 mls/hr Q6H IV 11/26/16 09:00 12/03/16 08:59 11/26/16 10:38 200 MLS/HR Albuterol (Ventolin Hfa Inhaler) 4 puffs Q4R INH 11/26/16 12:00 12/26/16 11:59 Ipratropium [place] (Atrovent Hfa Inhaler) 4 puffs Q4R INH 11/26/16 12:00 12/26/16 11:59 Pantoprazole Sodium 40 mg/ Syringe 10 ml @ 5 mls/min BID@ IV 11/26/16 09:00 12/26/16 08:59 11/26/16 10:36 5 MLS/MIN Doxycycline Hyclate 100 mg/ Dextrose 110 ml @ 50 mls/hr Q12H IV 11/26/16 12:00 12/06/16 11:59 Enteral Nutritional Formula (Peptamen Intense VHP) 1,000 ml CONTINUOUS OG 11/26/16 09:30 12/26/16 09:29 Fentanyl Citrate (Fentanyl Inj) 50 mcg Q2H PRN IV 11/26/16 10:45 12/10/16 10:44 UNV Midazolam HCl (Versed Inj) 2 mg Q2H PRN IV 11/26/16 10:45 12/26/16 10:44 UNV Vital Signs: Date Time Temp Pulse Resp B/P (MAP) Pulse Ox O2 Delivery O2 Flow Rate FiO2 11/26/16 08:33 60 11/26/16 08:00 100 Mechanical Ventilator 60 11/26/16 07:15 109 9 111/84 (93) 100 11/26/16 07:12 107 6 105/70 (82) 100 11/26/16 07:11 98 4 91/66 (74) 97 11/26/16 07:10 105 3 100 11/26/16 07:05 103 14 117/77 (90) 100 11/26/16 07:00 109 12 125/81 (96) 99 11/26/16 06:55 104 20 93/66 (75) 100 11/26/16 06:53 100 11/26/16 06:50 109 20 98/71 (80) 100 11/26/16 06:45 104 8 90/62 (71) 84 11/26/16 06:40 122 16 105/68 (80) 99 11/26/16 06:35 94 6 106/59 (75) 99 11/26/16 06:30 98 43 91/64 (73) 94 11/26/16 06:00 88 18 116/65 (82) 94 BiPAP 40 11/26/16 05:18 84 98 50 11/26/16 04:00 36.4 83 18 111/65 (80) 98 BiPAP 50 11/26/16 04:00 98 BiPAP 50 11/26/16 03:44 80 99 60 11/26/16 03:43 80 20 99 BiPAP/CPAP 60 11/26/16 02:02 85 98 70 11/26/16 02:00 86 24 97/60 (72) 96 BiPAP 11/26/16 00:00 36.6 92 27 98/48 (65) 100 Nasal Cannula 4.0 11/25/16 23:59 98 Nasal Cannula 3.0 11/25/16 23:26 100 24 98 Nasal Cannula 3.0 11/25/16 22:00 99 38 114/52 (72) 93 Nasal Cannula 4.0 11/25/16 20:00 97 34 108/60 94 11/25/16 20:00 36.4 97 34 108/60 (76) 94 4.0 11/25/16 20:00 Oxymask 4.0 11/25/16 19:00 96 35 109/61 98 11/25/16 18:55 95 20 95 Mask 4.0 11/25/16 18:16 36.6 11/25/16 18:00 92 34 103/58 95 11/25/16 17:00 91 35 99/56 96 11/25/16 16:13 36.6 11/25/16 16:13 94 16 96 Mask 10.0 11/25/16 16:01 92 33 97/73 98 11/25/16 16:00 Oxymask 10.0 11/25/16 15:45 89 31 98/58 97 11/25/16 15:30 90 33 109/57 96 11/25/16 15:15 92 32 101/57 96 11/25/16 15:00 36.6 11/25/16 15:00 79 26 99/55 98 11/25/16 14:45 79 27 94/50 99 11/25/16 14:30 90 26 110/63 94 11/25/16 14:22 90 35 99/55 96 11/25/16 14:01 93 38 98/61 91 11/25/16 13:01 90 35 104/44 92 11/25/16 12:30 87 38 94/52 92 11/25/16 12:00 36.5 11/25/16 12:00 90 37 101/49 87 11/25/16 12:00 Oxymask 10.0 11/25/16 11:45 93 37 94/48 88 11/25/16 11:31 93 41 115/43 79 11/25/16 11:30 36.6 11/25/16 11:21 36.1 11/25/16 11:15 93 33 88/50 95 11/25/16 11:06 95 16 94 Room Air 11/25/16 11:05 91 33 97/44 87 11/25/16 11:01 92 26 97/44 93 11/25/16 10:57 91 25 99/52 99 Laboratory Results: Last 24 Hours Test 11/25/16 11:58 11/25/16 15:19 11/25/16 19:32 11/25/16 21:07 Prothrombin Time 12.2 SECONDS Prothromb Time International Ratio 1.1 Activated Partial Thromboplast Time 34.6 SECONDS 53.9 SECONDS Partial Thromboplastin Ratio 1.3 2.1 Hemoglobin 9.0 g/dL 9.3 g/dL Hematocrit 27.6 % 30.0 % Test 11/26/16 01:47 11/26/16 01:55 11/26/16 02:24 11/26/16 03:30 Hemoglobin 9.3 g/dL 8.9 g/dL Hematocrit 28.4 % 27.1 % Blood Gas Sample Site R Radial Bedside Blood Gas pH (LAB) 7.13 Bedside Blood Gas pCO2 (LAB) 95 mmHg Bedside Blood Gas pO2 (LAB) 93 mmHg Bedside Blood Gas HCO3 (LAB) 32 meq/L Bedside Blood Gas Total CO2 35 mEq/l Bedside Blood Gas Base Excess (LAB) 2.0 meq/L Bedside Blood Gas O2 Saturation 94.0 % Jordi Test Pass Oxygen Delivery Device BIPAP Bedside Oxygen Rate (breaths/min) 12 Bedside FiO2 70 % Blood Gas IPAP 15 White Blood Count 15.89 K/uL Red Blood Count 2.82 M/uL Mean Corpuscular Volume 96.1 fL Mean Corpuscular Hemoglobin 31.6 pg Mean Corpuscular Hemoglobin Concent 32.8 g/dl RDW Standard Deviation 54.5 fL RDW Coefficient of Variation 16.2 % Platelet Count 120 K/uL Mean Platelet Volume 11.0 fL Nucleated RBC Absolute Count (auto) 0.45 K/uL Nucleated Red Blood Cells % 2.8 % Activated Partial Thromboplast Time 68.9 SECONDS Partial Thromboplastin Ratio 2.7 Sodium Level 146 mmol/L Potassium Level 4.0 mmol/L Chloride Level 109 mmol/L Carbon Dioxide Level 34 mmol/L Anion Gap 3.0 mmol/L Blood Urea Nitrogen 14 mg/dl Creatinine 0.61 mg/dl Est Creatinine Clear Calc Drug Dose 90.0 ml/min Estimated GFR () 115.6 Estimated GFR (Non- 99.8 BUN/Creatinine Ratio 23.4 Random Glucose 114 mg/dl Calcium Level 7.2 mg/dl Phosphorus Level 2.5 mg/dl Magnesium Level 2.3 mg/dl Venous Blood pH 7.16 Venous Blood Partial Pressure CO2 97 mmHg Venous Blood Partial Pressure O2 38 mmHg Venous Blood HCO3 34 mmol/L Venous Blood Oxygen Saturation 70.3 % Venous Blood Base Excess 4.5 mmol/L Test 11/26/16 08:01 11/26/16 09:18 11/26/16 09:44 Hemoglobin 9.8 g/dL Hematocrit 30.3 %
--- NOTE | 2016-11-26 11:08 | Progress Note ---
Medicine Progress Note Date & Time of Visit: Nov 26, 2016 at 10:52. Subjective patient intubated this morning for hypoxia with Bipap noted to have bilateral mucopurulent secretions examined at bedside, sedated, on mech vent not in distress no melena/hematochezia Objective Last 8 Hrs Date Time Temp Pulse Resp B/P (MAP) Pulse Ox O2 Delivery O2 Flow Rate FiO2 11/26/16 08:33 60 11/26/16 08:00 100 Mechanical Ventilator 60 11/26/16 07:15 109 9 111/84 (93) 100 11/26/16 07:12 107 6 105/70 (82) 100 11/26/16 07:11 98 4 91/66 (74) 97 11/26/16 07:10 105 3 100 11/26/16 07:05 103 14 117/77 (90) 100 11/26/16 07:00 109 12 125/81 (96) 99 11/26/16 06:55 104 20 93/66 (75) 100 11/26/16 06:53 100 11/26/16 06:50 109 20 98/71 (80) 100 11/26/16 06:45 104 8 90/62 (71) 84 11/26/16 06:40 122 16 105/68 (80) 99 11/26/16 06:35 94 6 106/59 (75) 99 11/26/16 06:30 98 43 91/64 (73) 94 11/26/16 06:00 88 18 116/65 (82) 94 BiPAP 40 11/26/16 05:18 84 98 50 11/26/16 04:00 36.4 83 18 111/65 (80) 98 BiPAP 50 11/26/16 04:00 98 BiPAP 50 11/26/16 03:44 80 99 60 11/26/16 03:43 80 20 99 BiPAP/CPAP 60 Physical Exam: General- sedated, not in distress Neck- no JVD Lungs- (+) rhonchi, bilateral, anteriorly Heart- regular rhythm; no murmur, normal rate Abdomen- normal bowel sounds, non distended, soft Extremities- no pretibial edema, no calf tenderness Neuro- alert, oriented x 2; no gross focal neuro deficits Skin- warm & dry Laboratory Results: Last 24 Hours Test 11/25/16 11:58 11/25/16 15:19 6/20/17 19:32 11/25/16 21:07 Prothrombin Time 12.2 SECONDS Prothromb Time International Ratio 1.1 Activated Partial Thromboplast Time 34.6 SECONDS 53.9 SECONDS Partial Thromboplastin Ratio 1.3 2.1 Hemoglobin 9.0 g/dL 9.3 g/dL Hematocrit 27.6 % 30.0 % Test 11/26/16 01:47 11/26/16 01:55 11/26/16 02:24 11/26/16 03:30 Hemoglobin 9.3 g/dL 8.9 g/dL Hematocrit 28.4 % 27.1 % Blood Gas Sample Site R Radial Bedside Blood Gas pH (LAB) 7.13 Bedside Blood Gas pCO2 (LAB) 95 mmHg Bedside Blood Gas pO2 (LAB) 93 mmHg Bedside Blood Gas HCO3 (LAB) 32 meq/L Bedside Blood Gas Total CO2 35 mEq/l Bedside Blood Gas Base Excess (LAB) 2.0 meq/L Bedside Blood Gas O2 Saturation 94.0 % Jordi Test Pass Oxygen Delivery Device BIPAP Bedside Oxygen Rate (breaths/min) 12 Bedside FiO2 70 % Blood Gas IPAP 15 White Blood Count 15.89 K/uL Red Blood Count 2.82 M/uL Mean Corpuscular Volume 96.1 fL Mean Corpuscular Hemoglobin 31.6 pg Mean Corpuscular Hemoglobin Concent 32.8 g/dl RDW Standard Deviation 54.5 fL RDW Coefficient of Variation 16.2 % Platelet Count 120 K/uL Mean Platelet Volume 11.0 fL Nucleated RBC Absolute Count (auto) 0.45 K/uL Nucleated Red Blood Cells % 2.8 % Activated Partial Thromboplast Time 68.9 SECONDS Partial Thromboplastin Ratio 2.7 Sodium Level 146 mmol/L Potassium Level 4.0 mmol/L Chloride Level 109 mmol/L Carbon Dioxide Level 34 mmol/L Anion Gap 3.0 mmol/L Blood Urea Nitrogen 14 mg/dl Creatinine 0.61 mg/dl Est Creatinine Clear Calc Drug Dose 90.0 ml/min Estimated GFR () 115.6 Estimated GFR (Non- 99.8 BUN/Creatinine Ratio 23.4 Random Glucose 114 mg/dl Calcium Level 7.2 mg/dl Phosphorus Level 2.5 mg/dl Magnesium Level 2.3 mg/dl Venous Blood pH 7.16 Venous Blood Partial Pressure CO2 97 mmHg Venous Blood Partial Pressure O2 38 mmHg Venous Blood HCO3 34 mmol/L Venous Blood Oxygen Saturation 70.3 % Venous Blood Base Excess 4.5 mmol/L Test 11/26/16 08:01 11/26/16 09:18 11/26/16 09:44 Hemoglobin 9.8 g/dL Hematocrit 30.3 % Date/Time Source Procedure Growth Status 11/26/16 07:31 Bronchial Washings Right Lower Lobe Fungal Smear Pending Torie Batch 11/26/16 07:31 Bronchial Washings Right Lower Lobe Fungal Culture Pending Torie Batch 11/26/16 07:31 Bronchial Washings Right Lower Lobe Acid Fast Stain Pending Torie Batch 11/26/16 07:31 Bronchial Washings Right Lower Lobe Mycobacterial Culture Pending Torie Batch 11/26/16 07:31 Bronchial Washings Right Lower Lobe Gram Stain Pending Ordered 11/26/16 07:31 Bronchial Washings Right Lower Lobe Bronchoalveolar Lavage Culture Pending Ordered 11/26/16 07:31 Bronchial Washings Left Lower Lobe Gram Stain Pending Ordered 11/26/16 07:31 Bronchial Washings Left Lower Lobe Bronchoalveolar Lavage Culture Pending Ordered Assessment & Plan 71 year old male with history of GERD, Laryngeal CA , Hep C presenting with low Hg. ACUTE HYPOXIC RESPIRATORY FAILURE - s/p Intubation, Mech Vent 11/25/16 s/p Bronchoscopy 11/25/16 - cxr: 1. Feeding tube is seen within the proximal stomach. 2. Patchy bibasilar airspace opacities and trace bilateral pleural effusions persist. - Unasyn and Doxycycline Day 2 Bronchodilators - mech vent management per Center Manager PULMONARY EMBOLISM, RIGHT - Heparin IV started monitor for bleeding UPPER GI BLEED LIKELY FROM DUODENAL ULCER - s/p EGD: (+) duodenal ulcer, cauterized - received total of 7 units pRBC monitor Hg - Protonix drip transitioned to BID ILEUS - (+) BM after Neostigmine ACUTE BLOOD LOSS ANEMIA - received total of 7 units pRBC Hg stable around 9 - also received Cryoprecipitate THROMBOCYTOPENIA - 1 unit plateletpharesis ordered - Plt improving POSSIBLE SEPSIS Lactate 4 on admission -- afebrile, WBC slightly increased -- blood and urine cultures negative so far -- follow up bronchial washing cultures -- currently on Unasyn and Doxycycline HYPERNATREMIA resolving after 1/2 NSS DVT PROPHYLAXIS on Heparin drip Current Inpatient Medications: Current Inpatient Medications Medications (Trade) Dose Ordered Sig/Vera Route Start Time Stop Time Status Last Admin Dose Admin Acetaminophen (Tylenol Tab) 650 mg Q4H PRN PO 11/22/16 15:00 12/22/16 14:59 Future Hold Ondansetron HCl (Zofran Inj) 4 mg Q6H PRN IV 11/22/16 17:45 12/22/16 17:44 11/25/16 07:50 4 MG Sodium Chloride 1,000 ml @ 100 mls/hr Q10H IV 11/23/16 05:00 12/23/16 04:59 Future Hold 11/25/16 23:27 100 MLS/HR Acetaminophen 650 mg/Empty Bag 65 ml @ 260 mls/hr Q6H PRN IV 11/23/16 08:00 12/23/16 07:59 11/25/16 22:53 260 MLS/HR Heparin Sodium (Porcine) (Heparin 10 Unit/ ml 5 ml Flush) 5 ml PRN PRN FLUSH 11/23/16 12:30 12/23/16 12:29 Levothyroxine Sodium (Synthroid Tab) 75 mcg DAILYBB PO 11/25/16 06:00 12/25/16 05:59 11/25/16 05:30 75 MCG Ioversol (Optiray 320) 125 ml UD PRN IV 11/25/16 10:00 11/29/16 09:59 Heparin Sodium/ Dextrose 500 ml @ 14 mls/hr Q24H PRN IV 11/25/16 12:00 12/25/16 11:59 11/25/16 14:49 14 MLS/HR Polyethylene (Miralax Powder Packet) 17 gm DAILY PO 11/26/16 09:00 12/26/16 08:59 Propofol (Diprivan Iv Emulsion 100ml Vial) 1 dose UD IV 11/26/16 06:41 11/29/16 06:40 Vancomycin HCl 1200 mg/Sodium Chloride 274 ml @ 125 mls/hr TODAY@1100 ONCE IV 11/26/16 11:00 11/26/16 13:11 Ampicillin Sodium/ Sulbactam Sodium 1500 mg/Sodium Chloride 104 ml @ 200 mls/hr Q6H IV 11/26/16 09:00 12/03/16 08:59 11/26/16 10:38 200 MLS/HR Albuterol (Ventolin Hfa Inhaler) 4 puffs Q4R INH 11/26/16 12:00 12/26/16 11:59 Ipratropium [place] (Atrovent Hfa Inhaler) 4 puffs Q4R INH 11/26/16 12:00 12/26/16 11:59 Pantoprazole Sodium 40 mg/ Syringe 10 ml @ 5 mls/min BID@ IV 11/26/16 09:00 12/26/16 08:59 11/26/16 10:36 5 MLS/MIN Doxycycline Hyclate 100 mg/ Dextrose 110 ml @ 50 mls/hr Q12H IV 11/26/16 12:00 12/06/16 11:59 Enteral Nutritional Formula (Peptamen Intense VHP) 1,000 ml CONTINUOUS OG 11/26/16 09:30 12/26/16 09:29 Fentanyl Citrate (Fentanyl Inj) 50 mcg Q2H PRN IV 11/26/16 10:45 12/10/16 10:44 UNV Midazolam HCl (Versed Inj) 2 mg Q2H PRN IV 11/26/16 10:45 12/26/16 10:44 UNV
[2016-11-26] MEDS: IPRATROPIUM BROMIDE HFA INHALER INH SCH ×4 (11:46→23:26)
[2016-11-26] MEDS: ALBUTEROL HFA 8 GM INHALER INH SCH ×4 (11:46→23:26)
--- NOTE | 2016-11-26 11:54 | Pharmacy Progress Note ---
Pharmacy Abx Initial Consult Date of Service Nov 26, 2016. Pharmacy Dosing Scope Date of Consult: 11/26/16 Consultation requested by: Dr. Jackson Pharmacy is consulted to initiate IV VANCOMYCIN therapy, order appropriate labs and adjust drug dose/frequency. Subjective The patient is a 71 year old male admitted on Nov 22, 2016 at 15:11 for tachycardia, abdominal pain and probable GIB. Patient was dx with duodenal bulb ulcer which was cauterized and epi injection. The patient was initially receiving Vancomycin + Zosyn for possible intraabdominal process, however these abx were dc'd as there was no evidence of infection. However yesterday morning the patient developed hypoxia, mucopurulent secretions noted on bronch, leukocytosis noted, and there is concern for aspiration pnx at this time. Objective Height (Feet): 5 Height (Inches): 6.00 Weight (Kilograms): 59.000 Vital Signs (Past 12Hrs) Vital Signs Past 12 Hours Date Time Temp Pulse Resp B/P (MAP) Pulse Ox O2 Delivery O2 Flow Rate FiO2 11/26/16 10:00 104 18 90/50 (63) 99 Mechanical Ventilator 60 104 11/26/16 08:33 60 11/26/16 08:00 100 Mechanical Ventilator 60 11/26/16 07:15 109 9 111/84 (93) 100 11/26/16 07:12 107 6 105/70 (82) 100 11/26/16 07:11 98 4 91/66 (74) 97 11/26/16 07:10 105 3 100 11/26/16 07:05 103 14 117/77 (90) 100 11/26/16 07:00 109 12 125/81 (96) 99 11/26/16 06:55 104 20 93/66 (75) 100 11/26/16 06:53 100 11/26/16 06:50 109 20 98/71 (80) 100 11/26/16 06:45 104 8 90/62 (71) 84 11/26/16 06:40 122 16 105/68 (80) 99 11/26/16 06:35 94 6 106/59 (75) 99 11/26/16 06:30 98 43 91/64 (73) 94 11/26/16 06:00 88 18 116/65 (82) 94 BiPAP 40 11/26/16 05:18 84 98 50 11/26/16 04:00 36.4 83 18 111/65 (80) 98 BiPAP 50 11/26/16 04:00 98 BiPAP 50 11/26/16 03:44 80 99 60 11/26/16 03:43 80 20 99 BiPAP/CPAP 60 11/26/16 02:02 85 98 70 11/26/16 02:00 86 24 97/60 (72) 96 BiPAP 11/26/16 00:00 36.6 92 27 98/48 (65) 100 Nasal Cannula 4.0 11/25/16 23:59 98 Nasal Cannula 3.0 Lab Results (24Hrs) Laboratory Tests (24 Hours) Test 11/26/16 02:24 11/26/16 09:44 White Blood Count 15.89 K/uL (4.8-10.8) H Procalcitonin 0.32 ng/ml (0-0.5) Micro Results Date/Time Source Procedure Growth Status 11/22/16 10:50 Blood Blood Culture - Preliminary NO GROWTH TO DATE. Resulted 11/22/16 10:30 Blood Blood Culture - Preliminary NO GROWTH TO DATE. Resulted 11/26/16 11:30 Nasal MRSA DNA Surveillance Screen Pending Torie Batch 11/22/16 00:00 Nasal MRSA DNA Surveillance Screen - Final Specimen Negative for MRSA by DNA Probe Complete 11/26/16 00:00 Bronchial Washings Right Lower Lobe Fungal Smear Pending Received 11/26/16 00:00 Bronchial Washings Right Lower Lobe Fungal Culture Pending Received 11/26/16 00:00 Bronchial Washings Right Lower Lobe Acid Fast Stain Pending Received 11/26/16 00:00 Bronchial Washings Right Lower Lobe Mycobacterial Culture Pending Received 11/26/16 00:00 Bronchial Washings Right Lower Lobe Gram Stain Pending Received 11/26/16 00:00 Bronchial Washings Right Lower Lobe Bronchoalveolar Lavage Culture Pending Received 11/26/16 00:00 Bronchial Washings Left Lower Lobe Gram Stain Pending Received 11/26/16 00:00 Bronchial Washings Left Lower Lobe Bronchoalveolar Lavage Culture Pending Received 11/22/16 16:55 Urine,Catheterized Urine Culture - Final NO GROWTH - LESS THAN 1,000 COLONIES/ML Complete Risk Factors for Resistance * Prisoner * Current hospitalization > 5 days Assessment & Plan Assessment * 71 year old male being started on empiric abx therapy due to concerns of possible aspiration pnx. This patient also has a h/o h pylori infection which the critical care team would like to cover this organism as well as potential pulm pathogens. * MRSA nasal swab negative on 11/22, repeat MRSA nasal swab ordered for today; would likely be able to d/c vancomycin if MRSA nasal swab negative * Procalcitonin level also ordered at this time, will help determine need for abx and guide deescalation * Patient is also ordered Doxycycline and Unasyn IV - dosing per provider; doses are appropriate Plan Vancomycin IV * Loading dose: 1200 mg (20 mg/kg) * Maintenance dose: 1000 mg IV (16.9 mg/kg) every 12 hours * Goal trough level for pulm infxn : 15 to 20 mcg/mL * Trough level ordered for 11/28/16 w/ maintenance dose * P'kinetic estimates: eCrCl ~95-110cc/min; Vd 0.7L/kg; half-life ~7-8 hours Pharmacy will continue to follow and will adjust dose/frequency as necessary. Thank you.
[2016-11-26] MEDS ORDERED: VANCOMYCIN CONSULT ACTIVE PRN (12:45)
[2016-11-26 13:05] LABS: COD UR NEGATIVE NG/ML (CUTOFF=50); HYDROCOD UR NEGATIVE NG/ML (CUTOFF=50); HYDROMOR UR NEGATIVE NG/ML (CUTOFF=50); MORPHINE UR 1580 NG/ML (CUTOFF=50); NORHYDROCODONE CONF UR NEGATIVE NG/ML (CUTOFF=50); OXYMORPH UR NEGATIVE NG/ML (CUTOFF=50)
[2016-11-26] MEDS: DOXYCYCLINE IV 100 MG in DEXTROSE 5% 100ML 100 ML IV SCH ×2 (16:00→23:29)
[2016-11-26 16:31] LABS: ISTAT ALLEN TEST Pass; ISTAT ARTERIAL BLOOD GAS HCO3 27 meq/L (19-24); ISTAT ARTERIAL BLOOD GAS PCO2 35 mmHg (35-46); ISTAT ARTERIAL BLOOD GAS PO2 51 mmHg (80-95); ISTAT ARTERIAL BLOOD GAS pH 7.49 (7.35-7.45); ISTAT CARBON DIOXIDE 28 mEq/l (24-31); ISTAT DELIVERY SYSTEM Ventilator; ISTAT FIO2 30 %; ISTAT PEEP 10; ISTAT RATE 18; ISTAT SITE R Radial; Vt 500
[2016-11-26] MEDS: HEPARIN 25,000 UNIT/500ML D5W 500 ML IV PRN (19:43)
[2016-11-27] VITALS (44 sets, daily range): BP systolic 60–147; BP diastolic 30–80; PULSE 73–139; TEMP 36.2–38; O2SAT 50–100
[2016-11-27 01:22] LABS: HEMATOCRIT 20.9 % (42-52)
[2016-11-27] MEDS: IPRATROPIUM BROMIDE HFA INHALER INH SCH ×4 (02:19→15:38)
[2016-11-27] MEDS: ALBUTEROL HFA 8 GM INHALER INH SCH ×4 (02:19→15:38)
[2016-11-27] MEDS: ACETAMINOPHEN IV 650 MG in EMPTY BAG 0 ML IV PRN (02:32)
[2016-11-27] MEDS ORDERED: SUCCINYLCHOLINE CHLORIDE 20 MG/ML 10 ML VIAL IV ONE (03:04)
[2016-11-27] MEDS ORDERED: FENTANYL CITRATE 100 MCG 2 ML CARP IV ONE (03:04)
[2016-11-27] MEDS ORDERED: MIDAZOLAM HCL 5 MG/ML 2ML VIAL IV ONE ×2 (03:04→19:24)
[2016-11-27] MEDS: AMPICILLIN/SULBACTAM SOD INJ 1,500 MG in SODIUM CHLORIDE 0.9% 100ML 100 ML IV SCH ×2 (03:35→11:07)
[2016-11-27] MEDS: LEVOTHYROXINE 75 MCG TAB PO SCH (05:13)
[2016-11-27 06:25] LABS: EOS % 0.3 %; HEMATOCRIT 24.6 % (42-52); IG% 0.8 %; LYMPH % 8.6 %; MEAN CELL VOLUME 93.5 fL (80-100); MEAN CORPUSCULAR HEMOGLOBIN 30.8 pg (25-34); MEAN CORPUSCULAR HGB CONC 32.9 g/dl (32-36); MEAN PLATELET VOLUME 10.6 fL (7.4-10.4); MONO % 7.4 %; NEUT % 82.9 %; PLATELET COUNT 122 K/uL (130-400); RED BLOOD COUNT 2.63 M/uL (4.7-6.1); WHITE BLOOD COUNT 12.79 K/uL (4.8-10.8)
[2016-11-27 06:29] LABS: INR 1.1 (0.9-1.1); PROTHROMBIN TIME (PATIENT) 11.6 SECONDS (9.0-12.0)
[2016-11-27 06:52] LABS: ANISOCYTOSIS PRESENT; COMPLETE YES
[2016-11-27] MEDS ORDERED: SODIUM CHLOR 0.45% + 20MEQ KCL 1,000 ML IV SCH (07:00)
[2016-11-27] MEDS ORDERED: VANCOMYCIN INJ 1,000 MG in SODIUM CHLORIDE 0.9% 250ML 250 ML IV SCH (07:00)
[2016-11-27 07:14] LABS: BUN/CREATININE RATIO 33.6 (10-20); CALCIUM 7.3 mg/dl (8.5-10.1); CREATININE 0.45 mg/dl (0.60-1.40); MAGNESIUM 2.2 mg/dl (1.8-2.4); POTASSIUM 3.2 mmol/L (3.5-5.1)
[2016-11-27 07:19] LABS: PHOSPHORUS 0.8 mg/dl (2.5-4.9)
[2016-11-27] MEDS ORDERED: POTASSIUM PHOS 3 MMOL/1 ML INFUSION IV STA (07:20)
--- NOTE | 2016-11-27 07:43 | DIAGNOSTIC IMAGING REPORT ---
CHEST ONE VIEW PORTABLE HISTORY: Intubated COMPARISON: Chest 11/26/2016. FINDINGS: Endotracheal tube terminates 2.6 cm from the skyler. Feeding tube terminates at the gastric cardia. 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 No pneumothorax. Left PICC terminates in the superior cavoatrial junction. No pneumothorax. No evidence for pulmonary edema. No new focal lung consolidations. Trace bilateral pleural effusions. Patchy bibasilar densities have improved. IMPRESSION: 1. Endotracheal tube terminates 2.6 cm from the skyler. 2. Feeding tube terminates at the gastric cardia. This should be advanced by 5 to 10 cm. 3. Trace bilateral pleural effusions are again noted. Patchy bibasilar densities have improved. Electronically signed by: Eugenio Otto M.D. 11/27/2016 7:41 AM Dictated Date/Time: 11/27/2016 7:39 AM
[2016-11-27] MEDS ORDERED: POTASSIUM PHOSPHATE INJ 21 MMOL in SODIUM CHLORIDE 0.9% 500ML 500 ML IV SCH (07:45)
[2016-11-27] MEDS: PANTOprazole INJ 40 MG in SYRINGE 0 ML IV SCH (07:57)
[2016-11-27] MEDS: POLYETHYLENE (MIRALAX) 17 GM PACK PO SCH (08:53)
--- NOTE | 2016-11-27 09:13 | Critical Care Progress Note ---
Critical Care Progress Note Date of Service Nov 27, 2016. ICU Day ICU Day Number: [address] Jackson Subjective Patient is currently intubated and limited ROS because of this. When asked if he is in pain the patient shakes his head no. Uneventful night however did require one transfusion for hgb which is decreasing Objective General:cachectic, currently intubated, alert Skin: no rashes noted, no suspicious lesions, no areas of inflammations/ lacerations/ erythema noted CVS: S1/ S2 noted, RRR,3/6 systolic murmur noted, no cyanosis RVS: improved breath sounds, less coarse however still slightly coarse, decreased to bilat bases Neck: inspection WNL, full ROM of neck ABD: BSx4, soft, minimally tender to palpation MSK: inspection of all limbs WNL, no swelling/ pain on palpation of joints NVS: PERRL, CAM negative Lymph: No lymphadenopathy palpable Current SOFA Score SOFA Score Response (Comments) Value Platelets (x10) < 150 1 Bilirubin (mg/dL) < 1.2 0 Rudy Coma Score 15 0 Level of Hypotension No Hypotension 0 Creatinine (mg/dL) < 1.2 0 Total 1 Assessment & Plan 1. Anemia most likely from acute blood loss secondary to GI source- duodenal bulb ulcer noted; requiring 7 units of pRBC and one cryoprecipitate 2. Acute hypoxic respiratory failure- unlikely secondary to the small pulmonary embolism, PNA vs atelectasis 3. Thrombocytopenia 4. Abdominal pain secondary to fecal impaction and ileus 5. Heme occult pos 6. Hypercapnic resp failure secondary to opioid use - resolved 7. COPD- stable 8. 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 Dysphagia and Dystonia - unchanged 10. MESFIN- resolved 11. H/O Hep C 12. Hypothyroidism 13. Hiatal Hernia 14. Right inguinal hernia 15. Bilat pleural effusion 16. Hypophosphatemia, possible refeeding syndrome NVS - avoid opioids/ narcotics for pain control - tylenol for pain control - CAM negative CVS - continue to monitor, sinus tachy this am RESP - r 14/ tv 450/ PEEP 10/ FIO2 40 - plan to extubate today ID - Unasyn Vanco and doxy started to cover for aspiration pna and possible H Pylori - Vanco has been d/c - continue to trend WBC GI - Coresafe in place, will touch base with GI and if ok will start trickle feed with Peptamen intense- goal is to reach 60 cc/h - - EGD revealed duodenal bulb ulcer - Pantoprazole 40 mg changed to bolus - continue miralax daily once PO once extubated - continue to monitor I&O HEME - received 8 units in total and 1 unit cryoprecipitate - 1 units are on hold - received 1 unit of plts - Heparin drip low dose without bolus started, HH has been trending down, plan is to consult vascular for IVC filter and d/c heparin altogether - PICC in place ENDO - BSG ACHS - TSH and Free T4 is decreased ( central hypothyroidism) - Synthroid 75 mcg daily FEN - continue to follow, replete prn - will follow phosphorous q6h for potential refeeding syndrome DVT Prophylaxis scd and heparin drip Resident Physician Supervision Note: Dr. Martinez was resident physician during care of patient. I separately evaluated patient and did history and exam. I discussed the case with the resident and generally agree with the findings and plan. On initial evaluation today patient's RASS 0 following complex commands able to give a thumbs up and wanted to have a breathing tube removed. Patient's oxygen saturation was 100% with an FiO2 of 30% heart rate 82, RSBI ranging in the 50s. Reviewed a.m. chest x-ray no significant infiltrate, patient given additional chance at liberation from mechanical ventilation. Later patient had respiratory insufficiency leading to acute hypercarbic respiratory failure with respiratory acidosis. Patient was again re-intubated without complication. Given another failure and extubation we were planning to proceed with obtaining consent for tracheostomy with the patient's power of hospital television rental clerk. The custodial was able to get us in touch with Yarelis Leiva. We discussed the patient's case in totality, given the multiple medical issues including history of cancer, developing protein calorie malnutrition, pulmonary embolism, GI bleeding requiring repeat transfusions. At that point she wanted to proceed with intubation and wanted to discuss with the extended family regarding possible tracheostomy and IVC filter placement. We wanted to proceed with IVC filter placement as the patient is unable to tolerate heparin in the setting of recurrent GI bleeding. Additionally the patient was made DO NOT RESUSCITATE in event of cardiac arrest. The patient's vascular access later appeared to be malfunctioning, the left upper extremity PICC was examined and discovered to have a small kink which was relieved and vasoactive medication infusions were reinitiated. Given that the patient was developing hypotension we opted to emergency with place a right IJ central venous catheter given that we have lost a peripheral IV and were having difficulties with the upper extremity PICC. The patient continued to deteriorate requiring increasing vasoactive medications, and had a large melanotic stool. I again reached out to the patient's sister and explained his worsening medical status and to get direction as to how aggressive the patient would want us to treat him. In the setting of GI bleeding requiring multiple transfusions, need for anticoagulation and need for IVC filter placement, H pylori infection and peptic ulcer disease, and acute on chronic hypercarbic respiratory failure which would be leading to tracheostomy patient's sister reiterated that the patient would not want to undergo such invasive procedures to have minimal quality of life. At that time goals of care were to increase the patient's comfort and allow him to pass away naturally. This conversation was confirmed by Trinidad Cobos RN and I also requested that Dr. Adebayo Juárez confirm that the patient's sister had no questions and agreed with withdrawal of care, which she did. Vasoactive medications were stopped and the patient was terminally extubated and at 1659. I have notified the patient' s sister, Yarelis Leiva, of his passing. I have personally spent 60 minutes of critical care time in the direct management of this patient. This is a life/limb threatening event. This includes time spent evaluating patient, direct bedside care, chart review, placing orders, interpretation of diagnostic studies, discussion with consultants, patient, and family members, as well as other required patient management activities. This time is exclusive of all separately billable procedures, and teaching time and separate from and in addition to any other critical care service time. Documented By: Kumar Jackson DO Consults & Procedures Consultants: Dr Rudd- GI Procedures: EGD Intubation 11/26/2016 with bronchoscopy Data Medications: Current Inpatient Medications Medications (Trade) Dose Ordered Sig/Vera Route Start Time Stop Time Status Last Admin Dose Admin Acetaminophen (Tylenol Tab) 650 mg Q4H PRN PO 11/22/16 15:00 12/22/16 14:59 Future Hold Ondansetron HCl (Zofran Inj) 4 mg Q6H PRN IV 11/22/16 17:45 12/22/16 17:44 11/25/16 07:50 4 MG Sodium Chloride 1,000 ml @ 100 mls/hr Q10H IV 11/23/16 05:00 12/23/16 04:59 Future Hold 11/25/16 23:27 100 MLS/HR Acetaminophen 650 mg/Empty Bag 65 ml @ 260 mls/hr Q6H PRN IV 11/23/16 08:00 12/23/16 07:59 11/27/16 02:32 260 MLS/HR Heparin Sodium (Porcine) (Heparin 10 Unit/ ml 5 ml Flush) 5 ml PRN PRN FLUSH 11/23/16 12:30 12/23/16 12:29 Levothyroxine Sodium (Synthroid Tab) 75 mcg DAILYBB PO 11/25/16 06:00 12/25/16 05:59 11/27/16 05:13 75 MCG Ioversol (Optiray 320) 125 ml UD PRN IV 11/25/16 10:00 11/29/16 09:59 Heparin Sodium/ Dextrose 500 ml @ 14 mls/hr Q24H PRN IV 11/25/16 12:00 12/25/16 11:59 11/26/16 19:43 14 MLS/HR Polyethylene (Miralax Powder Packet) 17 gm DAILY PO 11/26/16 09:00 12/26/16 08:59 Ampicillin Sodium/ Sulbactam Sodium 1500 mg/Sodium Chloride 104 ml @ 200 mls/hr Q6H IV 11/26/16 09:00 12/03/16 08:59 11/27/16 03:35 200 MLS/HR Albuterol (Ventolin Hfa Inhaler) 4 puffs Q4R INH 11/26/16 12:00 12/26/16 11:59 11/27/16 07:36 4 PUFFS Ipratropium [place] (Atrovent Hfa Inhaler) 4 puffs Q4R INH 11/26/16 12:00 12/26/16 11:59 11/27/16 07:36 4 PUFFS Pantoprazole Sodium 40 mg/ Syringe 10 ml @ 5 mls/min BID@ IV 11/26/16 09:00 12/26/16 08:59 11/27/16 07:57 5 MLS/MIN Doxycycline Hyclate 100 mg/ Dextrose 110 ml @ 50 mls/hr Q12H IV 11/26/16 12:00 12/06/16 11:59 11/26/16 23:29 50 MLS/HR Enteral Nutritional Formula (Peptamen Intense VHP) 1,000 ml CONTINUOUS OG 11/26/16 09:30 12/26/16 09:29 Fentanyl Citrate (Fentanyl Inj) 50 mcg Q2H PRN IV 11/26/16 10:45 12/10/16 10:44 11/26/16 20:07 50 MCG Midazolam HCl (Versed Inj) 2 mg Q2H PRN IV 11/26/16 10:45 12/26/16 10:44 Potassium Chloride/Sodium Chloride 1,000 ml @ 75 mls/hr [id number] IV 11/27/16 07:00 12/27/16 06:59 Future Hold Potassium Phosphate 21 mmol/ Sodium Chloride 507 ml @ 182 mls/hr TODAY@0745 IV 11/27/16 07:45 11/27/16 10:33 11/27/16 07:57 182 MLS/HR Vital Signs: Date Time Temp Pulse Resp B/P (MAP) Pulse Ox O2 Delivery O2 Flow Rate FiO2 11/27/16 07:44 30 11/27/16 07:36 80 20 99 BiPAP/CPAP 60 11/27/16 07:36 30 11/27/16 07:00 100 17 103/63 99 11/27/16 06:00 81 16 119/63 100 11/27/16 05:43 30 11/27/16 05:00 86 18 116/68 100 11/27/16 04:15 79 18 118/61 100 11/27/16 04:00 81 19 108/59 100 11/27/16 04:00 30 11/27/16 04:00 37.5 11/27/16 04:00 100 Mechanical Ventilator 30 11/27/16 03:45 80 14 113/57 100 11/27/16 03:30 83 14 107/62 100 11/27/16 03:15 85 14 108/58 100 11/27/16 03:00 80 14 102/54 100 11/27/16 02:45 75 15 111/60 100 11/27/16 02:45 37.3 81 18 111/60 100 11/27/16 02:30 37.3 84 16 121/64 100 11/27/16 02:30 83 18 121/64 100 11/27/16 02:19 30 11/27/16 02:15 37.3 83 18 115/62 100 11/27/16 02:15 83 19 115/62 100 11/27/16 02:00 37.5 83 18 123/64 100 11/27/16 02:00 37.5 11/27/16 02:00 84 17 123/64 100 11/27/16 01:45 37.5 87 15 112/55 100 11/27/16 01:45 87 16 112/55 100 11/27/16 01:42 37.5 89 14 106/57 100 11/27/16 01:40 89 22 106/57 99 11/27/16 01:40 37.5 88 14 106/57 99 11/27/16 01:00 78 14 107/60 100 11/27/16 00:01 38.0 11/27/16 00:00 79 14 103/57 100 11/26/16 23:59 100 Mechanical Ventilator 30 11/26/16 23:59 30 11/26/16 23:27 30 11/26/16 23:00 80 14 109/61 100 11/26/16 22:00 93 15 98/54 100 11/26/16 21:00 84 14 91/51 100 11/26/16 20:19 30 11/26/16 20:00 36.8 11/26/16 20:00 30 11/26/16 20:00 98 Mechanical Ventilator 30 11/26/16 20:00 96 16 96/55 100 11/26/16 19:39 30 11/26/16 19:30 98 18 99/57 100 11/26/16 19:00 99 26 104/57 100 11/26/16 18:15 30 11/26/16 18:00 96 100 93/57 (69) 98 30 96 11/26/16 16:00 100 Mechanical Ventilator 11/26/16 16:00 107 16 107/59 (75) 97 Mechanical Ventilator 107 11/26/16 15:52 30 11/26/16 15:50 30 11/26/16 14:00 37.0 95 16 89/49 (62) 99 Mechanical Ventilator 30 95 11/26/16 12:00 98 Mechanical Ventilator 11/26/16 12:00 100 18 86/55 (65) 97 Mechanical Ventilator 60 100 11/26/16 11:46 40 11/26/16 10:00 104 18 90/50 (63) 99 Mechanical Ventilator 60 104 Laboratory Results: Last 24 Hours Test 11/26/16 09:44 11/26/16 12:58 11/26/16 16:55 11/26/16 23:27 Procalcitonin 0.32 ng/ml Blood Gas Sample Site R Radial Bedside Blood Gas pH (LAB) 7.49 Bedside Blood Gas pCO2 (LAB) 35 mmHg Bedside Blood Gas pO2 (LAB) 51 mmHg Bedside Blood Gas HCO3 (LAB) 27 meq/L Bedside Blood Gas Total CO2 28 mEq/l Bedside Blood Gas Base Excess (LAB) 3.0 meq/L Bedside Blood Gas O2 Saturation 90.0 % Jordi Test Pass Oxygen Delivery Device Ventilator Bedside Oxygen Rate (breaths/min) 18 Blood Gas Minute Ventilation 9.0 Bedside FiO2 30 % Blood Gas Tidal Volume 500 Blood Gas PEEP 10 Hemoglobin 7.9 g/dL Hematocrit 23.0 % Bedside Glucose 85 mg/dl Test 11/27/16 00:40 11/27/16 05:14 11/27/16 05:21 11/27/16 06:10 Hemoglobin 6.9 g/dL 8.1 g/dL Hematocrit 20.9 % 24.6 % Bedside Glucose 95 mg/dl White Blood Count 12.79 K/uL Red Blood Count 2.63 M/uL Mean Corpuscular Volume 93.5 fL Mean Corpuscular Hemoglobin 30.8 pg Mean Corpuscular Hemoglobin Concent 32.9 g/dl Platelet Count 122 K/uL Mean Platelet Volume 10.6 fL Neutrophils (%) (Auto) 82.9 % Lymphocytes (%) (Auto) 8.6 % Monocytes (%) (Auto) 7.4 % Eosinophils (%) (Auto) 0.3 % Basophils (%) (Auto) 0.0 % Neutrophils # (Auto) 10.60 K/uL Lymphocytes # (Auto) 1.10 K/uL Monocytes # (Auto) 0.95 K/uL Eosinophils # (Auto) 0.04 K/uL Basophils # (Auto) 0.00 K/uL RDW Standard Deviation 48.1 fL RDW Coefficient of Variation 15.2 % Immature Granulocyte % (Auto) 0.8 % Immature Granulocyte # (Auto) 0.10 K/uL Nucleated RBC Absolute Count (auto) 0.21 K/uL Nucleated Red Blood Cells % 1.6 % Basophilic Stippling 1+ Anisocytosis PRESENT Prothrombin Time 11.6 SECONDS Prothromb Time International Ratio 1.1 Sodium Level 147 mmol/L Potassium Level 3.2 mmol/L Chloride Level 110 mmol/L Carbon Dioxide Level 32 mmol/L Anion Gap 5.0 mmol/L Blood Urea Nitrogen 15 mg/dl Creatinine 0.45 mg/dl Est Creatinine Clear Calc Drug Dose 131.0 ml/min Estimated GFR () 131.0 Estimated GFR (Non- 113.1 BUN/Creatinine Ratio 33.6 Random Glucose 92 mg/dl Calcium Level 7.3 mg/dl Phosphorus Level 0.8 mg/dl Magnesium Level 2.2 mg/dl Test 11/27/16 08:48
--- NOTE | 2016-11-27 09:16 | Progress Note ---
Medicine Progress Note Date & Time of Visit: Nov 27, 2016 at 09:10. Subjective patient seen intubated but awake follows simple commands nods/shakes head to questions would like to be extubated today no abdominal pain, nausea no other symptoms Objective Last 8 Hrs Date Time Temp Pulse Resp B/P (MAP) Pulse Ox O2 Delivery O2 Flow Rate FiO2 11/27/16 07:44 30 11/27/16 07:36 80 20 99 BiPAP/CPAP 60 11/27/16 07:36 30 11/27/16 07:00 100 17 103/63 99 11/27/16 06:00 81 16 119/63 100 11/27/16 05:43 30 11/27/16 05:00 86 18 116/68 100 11/27/16 04:15 79 18 118/61 100 11/27/16 04:00 81 19 108/59 100 11/27/16 04:00 30 11/27/16 04:00 37.5 11/27/16 04:00 100 Mechanical Ventilator 30 11/27/16 03:45 80 14 113/57 100 11/27/16 03:30 83 14 107/62 100 11/27/16 03:15 85 14 108/58 100 11/27/16 03:00 80 14 102/54 100 11/27/16 02:45 75 15 111/60 100 11/27/16 02:45 37.3 81 18 111/60 100 11/27/16 02:30 37.3 84 16 121/64 100 11/27/16 02:30 83 18 121/64 100 11/27/16 02:19 30 11/27/16 02:15 37.3 83 18 115/62 100 11/27/16 02:15 83 19 115/62 100 11/27/16 02:00 37.5 83 18 123/64 100 11/27/16 02:00 37.5 11/27/16 02:00 84 17 123/64 100 11/27/16 01:45 37.5 87 15 112/55 100 11/27/16 01:45 87 16 112/55 100 11/27/16 01:42 37.5 89 14 106/57 100 11/27/16 01:40 89 22 106/57 99 11/27/16 01:40 37.5 88 14 106/57 99 Physical Exam: General- alert, follows simple commands, not in distress Neck- no JVD Lungs- (+) rhonchi, bilateral, anterior Heart- regular rhythm; no murmur,tachycardic Abdomen- normal bowel sounds, non distended, soft ,mild tenderness on all quadrants Extremities- no pretibial edema, no calf tenderness Neuro- alert; no gross focal neuro deficits Skin- warm & dry Laboratory Results: Last 24 Hours Test 11/26/16 09:44 11/26/16 12:58 11/26/16 16:55 11/26/16 23:27 Procalcitonin 0.32 ng/ml Blood Gas Sample Site R Radial Bedside Blood Gas pH (LAB) 7.49 Bedside Blood Gas pCO2 (LAB) 35 mmHg Bedside Blood Gas pO2 (LAB) 51 mmHg Bedside Blood Gas HCO3 (LAB) 27 meq/L Bedside Blood Gas Total CO2 28 mEq/l Bedside Blood Gas Base Excess (LAB) 3.0 meq/L Bedside Blood Gas O2 Saturation 90.0 % Jordi Test Pass Oxygen Delivery Device Ventilator Bedside Oxygen Rate (breaths/min) 18 Blood Gas Minute Ventilation 9.0 Bedside FiO2 30 % Blood Gas Tidal Volume 500 Blood Gas PEEP 10 Hemoglobin 7.9 g/dL Hematocrit 23.0 % Bedside Glucose 85 mg/dl Test 11/27/16 00:40 11/27/16 05:14 11/27/16 05:21 11/27/16 06:10 Hemoglobin 6.9 g/dL 8.1 g/dL Hematocrit 20.9 % 24.6 % Bedside Glucose 95 mg/dl White Blood Count 12.79 K/uL Red Blood Count 2.63 M/uL Mean Corpuscular Volume 93.5 fL Mean Corpuscular Hemoglobin 30.8 pg Mean Corpuscular Hemoglobin Concent 32.9 g/dl Platelet Count 122 K/uL Mean Platelet Volume 10.6 fL Neutrophils (%) (Auto) 82.9 % Lymphocytes (%) (Auto) 8.6 % Monocytes (%) (Auto) 7.4 % Eosinophils (%) (Auto) 0.3 % Basophils (%) (Auto) 0.0 % Neutrophils # (Auto) 10.60 K/uL Lymphocytes # (Auto) 1.10 K/uL Monocytes # (Auto) 0.95 K/uL Eosinophils # (Auto) 0.04 K/uL Basophils # (Auto) 0.00 K/uL RDW Standard Deviation 48.1 fL RDW Coefficient of Variation 15.2 % Immature Granulocyte % (Auto) 0.8 % Immature Granulocyte # (Auto) 0.10 K/uL Nucleated RBC Absolute Count (auto) 0.21 K/uL Nucleated Red Blood Cells % 1.6 % Basophilic Stippling 1+ Anisocytosis PRESENT Prothrombin Time 11.6 SECONDS Prothromb Time International Ratio 1.1 Sodium Level 147 mmol/L Potassium Level 3.2 mmol/L Chloride Level 110 mmol/L Carbon Dioxide Level 32 mmol/L Anion Gap 5.0 mmol/L Blood Urea Nitrogen 15 mg/dl Creatinine 0.45 mg/dl Est Creatinine Clear Calc Drug Dose 131.0 ml/min Estimated GFR () 131.0 Estimated GFR (Non- 113.1 BUN/Creatinine Ratio 33.6 Random Glucose 92 mg/dl Calcium Level 7.3 mg/dl Phosphorus Level 0.8 mg/dl Magnesium Level 2.2 mg/dl Test 11/27/16 08:48 Assessment & Plan 71 year old male with history of GERD, Laryngeal CA , Hep C, presenting with low Hg. ACUTE HYPOXIC RESPIRATORY FAILURE - s/p Intubation, Mech Vent 11/25/16 s/p Bronchoscopy, Bronchoalveolar Lavage 11/25/16 - cxr: 1. Feeding tube is seen within the proximal stomach. 2. Patchy bibasilar airspace opacities and trace bilateral pleural effusions persist. - bronchial washing: pending - Vancomycin, Unasyn and Doxycycline Day 3 Bronchodilators - mech vent management per Accident Examiner possible extubation today PULMONARY EMBOLISM, RIGHT - Heparin IV started - Hg decreased again Vascular to be consulted for possible IVC filter placement UPPER GI BLEED LIKELY FROM DUODENAL ULCER - s/p EGD: (+) duodenal ulcer, cauterized - Hg decreased had some melena/hematochezia episodes last night - given additional 1 unit pRBC - received total of 8 units pRBC monitor Hg - Protonix drip transitioned to BID - plan to d/c heparin and place IVC filter - (+) h pylori on unasyn and doxycycline ILEUS - (+) BM after Neostigmine ACUTE BLOOD LOSS ANEMIA from GI bleed - received total of 8 units pRBC - also received Cryoprecipitate - monitor Hg THROMBOCYTOPENIA - 1 unit plateletpharesis ordered - Plt improving POSSIBLE SEPSIS Lactate 4 on admission -- afebrile, WBC decreasing -- blood and urine cultures negative so far -- follow up bronchial washing cultures -- currently on Unasyn and Doxycycline HYPERNATREMIA resolving after 1/2 NSS DVT PROPHYLAXIS on Heparin drip, will need IV filter Dispo social media intern working on [facility] re: patient's critical status Current Inpatient Medications: Current Inpatient Medications Medications (Trade) Dose Ordered Sig/Vera Route Start Time Stop Time Status Last Admin Dose Admin Acetaminophen (Tylenol Tab) 650 mg Q4H PRN PO 11/22/16 15:00 12/22/16 14:59 Future Hold Ondansetron HCl (Zofran Inj) 4 mg Q6H PRN IV 11/22/16 17:45 12/22/16 17:44 11/25/16 07:50 4 MG Sodium Chloride 1,000 ml @ 100 mls/hr Q10H IV 11/23/16 05:00 12/23/16 04:59 Future Hold 11/25/16 23:27 100 MLS/HR Acetaminophen 650 mg/Empty Bag 65 ml @ 260 mls/hr Q6H PRN IV 11/23/16 08:00 12/23/16 07:59 11/27/16 02:32 260 MLS/HR Heparin Sodium (Porcine) (Heparin 10 Unit/ ml 5 ml Flush) 5 ml PRN PRN FLUSH 11/23/16 12:30 12/23/16 12:29 Levothyroxine Sodium (Synthroid Tab) 75 mcg DAILYBB PO 11/25/16 06:00 12/25/16 05:59 11/27/16 05:13 75 MCG Ioversol (Optiray 320) 125 ml UD PRN IV 11/25/16 10:00 11/29/16 09:59 Heparin Sodium/ Dextrose 500 ml @ 14 mls/hr Q24H PRN IV 11/25/16 12:00 12/25/16 11:59 11/26/16 19:43 14 MLS/HR Polyethylene (Miralax Powder Packet) 17 gm DAILY PO 11/26/16 09:00 12/26/16 08:59 Ampicillin Sodium/ Sulbactam Sodium 1500 mg/Sodium Chloride 104 ml @ 200 mls/hr Q6H IV 11/26/16 09:00 12/03/16 08:59 11/27/16 03:35 200 MLS/HR Albuterol (Ventolin Hfa Inhaler) 4 puffs Q4R INH 11/26/16 12:00 12/26/16 11:59 11/27/16 07:36 4 PUFFS Ipratropium [place] (Atrovent Hfa Inhaler) 4 puffs Q4R INH 11/26/16 12:00 12/26/16 11:59 11/27/16 07:36 4 PUFFS Pantoprazole Sodium 40 mg/ Syringe 10 ml @ 5 mls/min BID@ IV 11/26/16 09:00 12/26/16 08:59 11/27/16 07:57 5 MLS/MIN Doxycycline Hyclate 100 mg/ Dextrose 110 ml @ 50 mls/hr Q12H IV 11/26/16 12:00 12/06/16 11:59 11/26/16 23:29 50 MLS/HR Enteral Nutritional Formula (Peptamen Intense VHP) 1,000 ml CONTINUOUS OG 11/26/16 09:30 12/26/16 09:29 Fentanyl Citrate (Fentanyl Inj) 50 mcg Q2H PRN IV 11/26/16 10:45 12/10/16 10:44 11/26/16 20:07 50 MCG Midazolam HCl (Versed Inj) 2 mg Q2H PRN IV 11/26/16 10:45 12/26/16 10:44 Potassium Chloride/Sodium Chloride 1,000 ml @ 75 mls/hr [id number] IV 11/27/16 07:00 12/27/16 06:59 Future Hold Potassium Phosphate 21 mmol/ Sodium Chloride 507 ml @ 182 mls/hr TODAY@0745 IV 11/27/16 07:45 11/27/16 10:33 11/27/16 07:57 182 MLS/HR
[2016-11-27 09:41] LABS: HEMATOCRIT 24.5 % (42-52)
[2016-11-27 09:46] LABS: PARTIAL THROMBOPLASTIN RATIO 1.5
[2016-11-27 09:56] LABS: BUN/CREATININE RATIO 26.9 (10-20); CALCIUM 7.6 mg/dl (8.5-10.1); CREATININE 0.66 mg/dl (0.60-1.40); POTASSIUM 3.4 mmol/L (3.5-5.1)
[2016-11-27] MEDS ORDERED: MODAFINIL 100 MG TAB NG ONE (09:56)
[2016-11-27 10:06] LABS: PHOSPHORUS 2.2 mg/dl (2.5-4.9)
--- NOTE | 2016-11-27 11:28 | Progress Note ---
Progress Note Date of Service Nov 27, 2016. Progress Note Patients stool returned as H pylori positive. Recomendations upon discharge 2 week course of triple therapy 1-Protonix 40 mg bid 2-Clarithromycin 500 mg twice daily 3-Amoxicillin 1 gm bid Repeat EGD in 8 to 12 weeks (assess for healing of ulcer / biopsy of the stomach to screen for H pylori eradication)
[2016-11-27] MEDS ORDERED: POT PHOSPHATE MONOBASIC W/ SOD TAB PEG SCH (13:00)
[2016-11-27] MEDS ORDERED: NOREPINEPHRINE BIT INJ 8 MG in DEXTROSE 5% 500ML 500 ML IV PRN (13:00)
[2016-11-27] MEDS ORDERED: RAPID SEQUENCE INDUCTION BAG ONE (13:21)
[2016-11-27] MEDS ORDERED: VASOPRESSIN INJ 50 UNITS in SODIUM CHLORIDE 0.9% 500ML 500 ML IV SCH (14:15)
[2016-11-27] MEDS ORDERED: NURSING VERBAL MED ORDER ONE (14:15)
--- NOTE | 2016-11-27 14:35 | Procedure Note ---
Procedure Note Procedure Date Nov 27, 2016. (Olegario Lang PA-C) I was present and assisted during the entire procedure. (Kumar Jackson, D.OCarlos Enrique) Procedure Description Procedure Name: Right sided CVC (Olegario Lang PA-C) Central Line Procedure time out: side/site verified, patient ID confirmed, sterile procedure used Consent obtained: verbal (obtained by Dr. Jackson via telephone from sister) Time of procedure: 13:45 Performed by: physician radio control crane operator (Olegario Lang PA-C) Anesthesia: lidocaine 1% without epi Volume anesthetic (ml's): 3 Central line lumen: double (JACC) Central line location: internal jugular (R) Additional details: ultrasound guidance CXR: appropriate position, no pneumothorax Complications: none Patient tolerated procedure: well Post-procedure vital signs: reviewed and stable Comments: Patient was placed in a supine position. Using sterile technique, ultra sound was used to located suitable access. Right internal jugular was easily visualized. Local anesthetic was injected into the subcutaneous tissue using 3mL of 1% lidocaine. Under ultra sound guidance, a finder needle was advanced while applying negative pressure on the syringe. A guide wire was then advanced with no evidence of ectopy on telemetry. Ultra sound was used to confirm placement and images were saved after review by Dr. Jackson. A double lumen JACC catheter was then advanced over the wire to 15 cm. No evidence of ectopy was noted on telemetry. Both ports were then easily aspirated and flushed. A stat lock was then used to secure the catheter and a sterile dressing was placed. A post procedure CXR revealed adequate placement of the catheter with no evidence of pneumothorax. (Olegario Lang PA-C)
--- NOTE | 2016-11-27 14:36 | DIAGNOSTIC IMAGING REPORT ---
ADDENDUM Note is made that the right internal jugular catheter is in superior vena cava. No evidence pneumothorax. Feeding tube within the distal esophagus and should be advanced. Endotracheal tube 2.3 cm both skyler. 11/27/2016 7:41 AM Dictated Date/Time: 11/27/2016 7:39 AM CHEST ONE VIEW PORTABLE HISTORY: ett placement COMPARISON: Chest 11/26/2016. FINDINGS: Endotracheal tube terminates 2.6 cm from the skyler. Feeding tube terminates at the gastric cardia. 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 No pneumothorax. Left PICC terminates in the superior cavoatrial junction. No pneumothorax. No evidence for pulmonary edema. No new focal lung consolidations. Trace bilateral pleural effusions. Patchy bibasilar densities have improved. IMPRESSION: 1. Endotracheal tube terminates 2.6 cm from the skyler. 2. Feeding tube terminates at the gastric cardia. This should be advanced by 5 to 10 cm. 3. Trace bilateral pleural effusions are again noted. Patchy bibasilar densities have improved. Electronically signed by: Eugenio Torres M.D. 11/27/2016 7:41 AM Dictated Date/Time: 11/27/2016 7:39 AM CHEST ONE VIEW PORTABLE HISTORY: et placement COMPARISON: Chest 11/26/2016. FINDINGS: Endotracheal tube terminates 2.6 cm from the skyler. Feeding tube terminates at the gastric cardia. 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 No pneumothorax. Left PICC terminates in the superior cavoatrial junction. No pneumothorax. No evidence for pulmonary edema. No new focal lung consolidations. Trace bilateral pleural effusions. Patchy bibasilar densities have improved. IMPRESSION: 1. Endotracheal tube terminates 2.6 cm from the skyler. 2. Feeding tube terminates at the gastric cardia. This should be advanced by 5 to 10 cm. 3. Trace bilateral pleural effusions are again noted. Patchy bibasilar densities have improved. Electronically signed by: Eugenio Torres M.D. 11/27/2016 7:41 AM Dictated Date/Time: 11/27/2016 7:39 AM CHEST ONE VIEW PORTABLE HISTORY: et placement COMPARISON: Chest 11/26/2016. FINDINGS: Endotracheal tube terminates 2.6 cm from the skyler. Feeding tube terminates at the gastric cardia. 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 No pneumothorax. Left PICC terminates in the superior cavoatrial junction. No pneumothorax. No evidence for pulmonary edema. No new focal lung consolidations. Trace bilateral pleural effusions. Patchy bibasilar densities have improved. IMPRESSION: 1. Endotracheal tube terminates 2.6 cm from the skyler. 2. Feeding tube terminates at the gastric cardia. This should be advanced by 5 to 10 cm. 3. Trace bilateral pleural effusions are again noted. Patchy bibasilar densities have improved. Electronically signed by: Lui Duncan M.D. 11/27/2016 2:45 PM Dictated Date/Time: 11/27/2016 2:40 PM ORIGINAL REPORT CHEST ONE VIEW PORTABLE CLINICAL HISTORY: et placement COMPARISON STUDY: 6:48 AM same date FINDINGS: Endotracheal tube 2.3 cm above the skyler. Feeding tube overlies but is most likely the distal esophagus. This should be advanced. Basilar atelectatic changes of the right foot progressive. Mid and upper lungs are clear. PICC catheter remains in superior vena cava. No evidence pneumothorax. IMPRESSION: 1. Feeding tube placed in the distal esophagus. This should be advanced 2. Endotracheal tube 2.3 cm above the skyler. 3. Mildly progressive basilar atelectatic change Electronically signed by: Lui Duncan M.D. 11/27/2016 2:35 PM Dictated Date/Time: 11/27/2016 2:33 PM
[2016-11-27] MEDS ORDERED: MoRPHine SULFATE 2 MG/ML CARP IV PRN (16:30)
--- NOTE | 2016-11-27 16:55 | Procedure Note ---
Procedure Note Date of Service Nov 27, 2016. Procedure Note Critical Care Medicine Point of Care Bedside Ultrasound Procedure: Procedural Ultrasound Procedure Date: 11/27/16 Indication: Central Venous Access Attending: Lindsey Jackson DO Resident/Physician Commercial Real Estate Sales Manager: Nadir Lang If for central venous access Artery AND Vein visualized: Y Compressible Vein: Y Guidewire or Short Catheter seen in vein prior to dilation: Y Line confirmed in Vein with ultrasound: Y Lung Sliding on side of attempt (if applicable): Y If no lung sliding or not obtained has CXR been ordered: NA Impression: Successful CVL placement Plan: Review post-procedure CXR Images obtained are saved for permanent record
--- NOTE | 2016-11-27 17:20 | Procedure Note ---
Procedure Note Date of Service Nov 27, 2016. Procedure Note Procedure Date: 11/27/2016 Procedure: Endotracheal intubation Pre-procedure Diagnosis: Acute hypercarbic respiratory failure Post-procedure Diagnosis: same as above Prior to Procedure: Informed Consent: emergent Attending Staff: Lindsey Jackson DO Indications: Acute hypercarbic respiratory failure and P are respiratory acidosis The identity of the patient was confirmed and a bedside time out was performed. Description of Procedure: Patient was evaluated and required intubation for impending respiratory failure. The patient was prepared in the usual fashion. A Reis 2 laryngoscope was used. A 7.5 Fr endotrachial tube was placed endotracheally to 24 cm at the teeth. A grade 1 view was obtained. The endotracheal tube was noted to pass through the vocal cords. Chest rise was bilateral. Bilateral breath sounds were heard without air sounds in the abdomen. Mist was noted in the endotracheal tube. End-tidal CO2 measurement was positive. Chest x-ray shows proper endotracheal tube placement. Complications: None Findings: not applicable Specimens: not applicable Estimated blood loss: Zero
[2016-11-27] MEDS ORDERED: VANCOMYCIN TROUGH ONE (18:30)
--- NOTE | 2016-11-27 19:06 | Death Summary ---
Summary of Admission Date Nov 22, 2016 at 15:11 Date & Time of Nov 27, 2016. 1659 Cause of Withdraw care after discussion with patient's sister Yarelis Leiva Immediate cause of : Acute heart failure Secondary Diagnoses #2 pulmonary embolism #3 acute blood loss anemia #4 duodenal ulcer #5 H. pylori duodenitis #6 hepatitis C #7 history esophageal cancer Hospital Course Patient is a 71-year-old male who was admitted on November 22 for working diagnosis of sepsis secondary to significant fecal impaction distended colon, acute hypercapnic respiratory failure, metabolic encephalopathy, acute kidney injury, history of hepatitis C, history of esophageal cancer with stricture dysphagia and dysphonia. Patient was subsequently found to have a significant gastrointestinal bleed, he underwent EGD by gastroenterology service. Lesion was injected and treated with cautery and had hemostasis. Patient was doing well until on November 25 the patient again had hypercarbic hypoxic respiratory failure. He was treated with supplemental O2 and noninvasive ventilation which significantly improved. Patient underwent a CT scan which revealed large atelectasis of the left lower lobe as well as a pulmonary embolism. He was treated with chest physiotherapy incentive spirometry. Patient subsequently developed acute hypercapnic respiratory failure on 11/26/2016, was intubated and underwent a therapeutic bronchoscopy with secretion removal. Patient significantly improved and was subsequently extubated on November 27. He again became apneic and again had hypercapnic respiratory failure. The ICU service was able to contact the patient's sister who was moves medical power of regulatory attorney updated her on the patient's clinical condition, and given that he would require significant life altering interventions including a IVC filter and tracheostomy the patient's power of regulatory attorney felt that the patient would not want to undergo such heroic measures. Subsequently the patient again developed acute gastrointestinal hemorrhage, had increasing vasoactive pressor requirements, when the service recontacted the patient's power of regulatory attorney it was felt the patient would not want to undergo any heroic interventions including repeat blood transfusions and goals of care were transitioned comfort care. The patient was terminally extubated and peacefully at [id number].
--- NOTE | 2016-11-27 19:11 | Discharge Summary ---
Discharge Summary Date of Service Nov 27, 2016. Discharge Summary Admission Date: Nov 22, 2016 at 15:11 Discharge Disposition: Principal Diagnosis: Hypercapnic respiratory failure Secondary Diagnoses/Problems: Acute gastrointestinal hemorrhage Acute blood loss anemia Duodenal ulcer H. pylori duodenitis Pulmonary embolism Atelectasis of left lower lobe History of esophageal cancer History of squamous cell cancer Protein calorie malnutrition Procedures: EGD 11/24/2016 Intubation 11/26/2016 Bronchoscopy 11/26/2016 Intubation 11/27/2016 Central venous catheter access 11/27/2016 Admission Information HPI (per Admitting provider): Attending: Dr. Hills Saw patient in B2 in the ED. at 13:30 This is a 71 yo male from [facility] that carries a history of sq cell laryngeal cancer who presents with a probable GI Bleed and rectal impaction of soft stool. His belly is not distended and not painful. CT abd/pelvis shows mild ileus with no evidence of free air or obstruction. There is also no evidence of dissection. SBP is soft and in the low 100s. HGB is 7.3 with a HcT of 22.7. WBC is 15.82. He is afebrile. Patient presented with a chief complaint of abdominal pain. He is able to give me his name and states that he feels better but still has some belly pain. He denies fever pr chills. No nausea or vomiting. No diarrhea. He is unable to tell me when his last bowel movement was. Further history is not available from the jail. Patient is unable to provide further history. The guards are able to tell me that the patient was in solitary confinement so he was not in general population. It is unclear what his ambulatory status was prior to admission. Per past medical records from the jail, he has a history of constipation, old right sided rib fractures, chronic pain, anxiety, dysphagia, glaucoma, inquinal hernia, HCV, GERD, and cataracts, chronic hoarseness Medications at the jail include Tylenol PRN, Artificial tears, Mylanta/Maalox , Omeprazole, Resource supplement Physical Exam (per Admitting): General - NAD but disoriented Eyes - No icterus, gaze conjugate. PERRLA ENT - Mucosa moist, no lesions or candidiasis. Tongue midline Neck - Supple, No JVD. No bruits or stridor Lungs - No bronchospasm, rales, or rhonchi. Diminished at the bases Heart - Regular, tachycardic in the 1-teens Abdomen - Soft, NT, ND, BS present. No tenderness to palpation. No rebound tenderness. No high pitched bowel sounds Extremities - No edema, pedal pulses intact. No calf tenderness Neuro - A&OX2. Able to confirm history. No pronator drift. Toes downgoing bilaterally. DTR 2/4 B/L brachioradialis, bicep, and patellar tendons. Stated that he has been at [facility] for 2 years Hospital Course 71 year old male with history of GERD, Laryngeal CA , Hep C, presenting with low Hg. ACUTE HYPOXIC RESPIRATORY FAILURE - s/p Intubation, Mech Vent 11/25/16 s/p Bronchoscopy, Bronchoalveolar Lavage 11/25/16 - cxr: 1. Feeding tube is seen within the proximal stomach. 2. Patchy bibasilar airspace opacities and trace bilateral pleural effusions persist. - bronchial washing: pending - Vancomycin, Unasyn and Doxycycline Day 3 Bronchodilators - mech vent management per Unit Tender possible extubation today PULMONARY EMBOLISM, RIGHT - Heparin IV started - Hg decreased again Vascular to be consulted for possible IVC filter placement UPPER GI BLEED LIKELY FROM DUODENAL ULCER - s/p EGD: (+) duodenal ulcer, cauterized - Hg decreased had some melena/hematochezia episodes last night - given additional 1 unit pRBC - received total of 8 units pRBC monitor Hg - Protonix drip transitioned to BID - plan to d/c heparin and place IVC filter - (+) h pylori on unasyn and doxycycline ILEUS - (+) BM after Neostigmine ACUTE BLOOD LOSS ANEMIA from GI bleed - received total of 8 units pRBC - also received Cryoprecipitate - monitor Hg THROMBOCYTOPENIA - 1 unit plateletpharesis ordered - Plt improving POSSIBLE SEPSIS Lactate 4 on admission -- afebrile, WBC decreasing -- blood and urine cultures negative so far -- follow up bronchial washing cultures -- currently on Unasyn and Doxycycline HYPERNATREMIA resolving after 1/2 NSS Acute pulmonary embolism Patient is a 71-year-old male who was admitted on November 22 for working diagnosis of sepsis secondary to significant fecal impaction distended colon, acute hypercapnic respiratory failure, metabolic encephalopathy, acute kidney injury, history of hepatitis C, history of esophageal cancer with stricture dysphagia and dysphonia. Patient was subsequently found to have a significant gastrointestinal bleed, he underwent EGD by gastroenterology service. Lesion was injected and treated with cautery and had hemostasis. Patient was doing well until on November 25 the patient again had hypercarbic hypoxic respiratory failure. He was treated with supplemental O2 and noninvasive ventilation which significantly improved. Patient underwent a CT scan which revealed large atelectasis of the left lower lobe as well as a pulmonary embolism. He was treated with chest physiotherapy incentive spirometry. Patient subsequently developed acute hypercapnic respiratory failure on 11/26/2016, was intubated and underwent a therapeutic bronchoscopy with secretion removal. Patient significantly improved and was subsequently extubated on November 27. He again became apneic and again had hypercapnic respiratory failure. The ICU service was able to contact the patient's sister who was moves medical power of criminal attorney updated her on the patient's clinical condition, and given that he would require significant life altering interventions including a IVC filter and tracheostomy the patient's power of criminal attorney felt that the patient would not want to undergo such heroic measures. Subsequently the patient again developed acute gastrointestinal hemorrhage, had increasing vasoactive pressor requirements, when the service recontacted the patient's power of criminal attorney it was felt the patient would not want to undergo any heroic interventions including repeat blood transfusions and goals of care were transitioned comfort care. The patient was terminally extubated and peacefully at 1659. Discharge Instructions Not applicable
--- NOTE | 2016-11-27 21:10 | Progress Note ---
Progress Note Date of Service Nov 27, 2016. Progress Note notified by RN that patient was hypotensive, could not obtain an ABG went to check the patient immediately patient was in high flow oxygen, eyes open but does not respond to stimuli IV fluid bolus and Levophed ordered ABG then resulted and showed respiratory acidosis, pH 7.15 informed In Home Baby Sitter RJ Lang for re-intubation patient was then evaluated by him, Bipap ordered, additional IV access ordered notified by bilingual patient support caseworker that [facility] gave permission to call sister Yarelis Leiva to discuss goals of care, code status spoke with Ms. Leiva, discussed the patient's admission and present critical status, she would like to proceed with Full Code In Home Baby Sitter team then discussed with her the patient's status, patient then decided to go ahead with re intubation but change him to DNR updated [facility] re: critical status, spoke with Dr. Schumacher patient was reintubated received a call from Dr. Jackson that patient was having profuse bleeding, and Ms. Leiva was informed re: critical status, and she decided to change goal of care to comfort measures, and extubate the patient called Ms. Leiva to discuss goals of care, and she confirmed her wish to extubate the patient, change goal of care to comfort measures offered ballet master/mistress services to the patient and Ms. Leiva agreed this was relayed to Dr. Renetta Hummel MD
--- NOTE | 2016-11-28 07:57 | Palliative Care Progress Note ---
Palliative Care Progress Note Date of Service Nov 28, 2016. Subjective Patient before consult done.
[2016-11-28] MEDS ORDERED: MODAFINIL 100 MG TAB NG SCH (09:00)
[2016-11-28] MEDS ORDERED: VANCOMYCIN TROUGH ONE ×2 (11:30→18:30)
--- NOTE | 2016-12-02 11:54 | Medical Consult ---
Consultation Note Date of Service Dec 02, 2016. Consultation Note Was told by the contour grinder that the consult was cancelled.
== END 2016-11-27 19:25 | disposition expired | DRG 166 ==
LOC: EDBD 09:41 → C.EDB 09:44 → EDBD 09:44 → C.MSICU 15:11 → EDBEDREQ 15:19 → ENRESERV 15:20
PROVIDERS: ADMIT Hospitalist; ATTEND Internal Medicine
PROC: 02HV33Z Insertion of Infusion Device into Superior Vena Cava, Percutaneous Approach (ICD-10-PCS; 2016-11-23)
PROC: 3E0G8GC Introduction of Other Therapeutic Substance into Upper GI, Via Natural or Artificial Opening Endoscopic (ICD-10-PCS; 2016-11-24)
PROC: 5A1935Z Respiratory Ventilation, Less than 24 Consecutive Hours (ICD-10-PCS; principal; 2016-11-26)
PROC: 0BH17EZ Insertion of Endotracheal Airway into Trachea, Via Natural or Artificial Opening (ICD-10-PCS; principal; 2016-11-26)
PROC: 0BBF8ZX Excision of Right Lower Lung Lobe, Via Natural or Artificial Opening Endoscopic, Diagnostic (ICD-10-PCS; 2016-11-26)
PROC: 05HM33Z Insertion of Infusion Device into Right Internal Jugular Vein, Percutaneous Approach (ICD-10-PCS; 2016-11-27)
DX: J96.02 Acute respiratory failure with hypercapnia (principal); K26.4 Chronic or unspecified duodenal ulcer with hemorrhage; G93.41 Metabolic encephalopathy; J90 Pleural effusion, not elsewhere classified; R64 Cachexia; D62 Acute posthemorrhagic anemia; E46 Unspecified protein-calorie malnutrition; K56.7 Ileus, unspecified; E87.0 Hyperosmolality and hypernatremia; E87.2 Acidosis; N17.9 Acute kidney failure, unspecified; J96.01 Acute respiratory failure with hypoxia; K29.70 Gastritis, unspecified, without bleeding; R00.0 Tachycardia, unspecified; Z68.22 Body mass index [BMI] 22.0-22.9, adult; K56.41 Fecal impaction; G89.29 Other chronic pain; F41.9 Anxiety disorder, unspecified; H40.9 Unspecified glaucoma; K21.9 Gastro-esophageal reflux disease without esophagitis; B19.20 Unspecified viral hepatitis C without hepatic coma; K44.9 Diaphragmatic hernia without obstruction or gangrene; J44.9 Chronic obstructive pulmonary disease, unspecified; E86.0 Dehydration; R13.10 Dysphagia, unspecified; R49.0 Dysphonia; D69.6 Thrombocytopenia, unspecified; E83.39 Other disorders of phosphorus metabolism; Z79.899 Other long term (current) drug therapy; Z98.49 Cataract extraction status, unspecified eye; Z85.828 Personal history of other malignant neoplasm of skin